=== PATIENT | male | born 1955 | race Caucasian/White ===

== ENCOUNTER → 2016-05-08 | Outpatient (CLI) | payer MEDICARE, MEDICAID ==
[~2016-05-08] VITALS: Ht 193 cm; Wt 79.4 kg
[~2016-05-08] MED LIST: BUPIVACAINE 0.5% 50 ML VIAL. IJ ONE; CONTRAST GIVEN MC PRN; CYCL10TA2 PO; DUTA1CPM PO; FLUT1DIS IH; GABA-585 PO; HYDR-2672 PO; HYDR-963 PO; IOHEXOL 300 MG/ML 10ML VIAL. IJ ONE; LIDOCAINE 1% / SOD BICARB 8.4% 20 ML VIAL. IJ ONE; SENN8.6T99 PO; TRAM50TA PO; TRAZ50TA15 PO; ZOLP10TA PO; methylPREDNISolone ACETATE 80 MG/ML VIAL. IM ONE
[2016-05-08 08:04] VITALS: BP 122/74
--- NOTE | 2016-05-08 15:44 | RAD ---
Fluoroscopically guided left hip joint injection, 05/08/2016: History: Left hip pain Under local anesthesia, aseptic conditions and fluoroscopic guidance an 18-gauge needle was passed into the left hip joint along the lateral margin of the neck of the femoral component of the patient's hip prosthesis. Reddish serosanguineous joint fluid was encountered. Approximately 8 cc of joint fluid was aspirated with a sample sent to the lab for appropriate studies. 80 mg of Depo-Medrol mixed with 4 cc of 0.5% Sensorcaine was then injected into the joint as requested. The needle was then removed and hemostasis obtained. 0.5 minutes of fluoroscopy time was utilized. One fluoroscopic spot image was recorded. The patient tolerated the procedure well and left the department in good condition.
== END | disposition home or self-care (01) ==
LOC: RAD 07:36
PROVIDERS: ATTEND Orthopaedic Surgery Sports Medicine
DX: M25.552 Pain in left hip (principal)
CPT/HCPCS: 20605; 36415; 77002; 85651; 86141; 87205; J1040; J3490; 87071; 87075

== ENCOUNTER 2016-08-12 00:42 | Emergency (ER) | payer MEDICARE, OTHER ==
[~2016-08-12] VITALS: Ht 193 cm; Wt 76.2 kg
[~2016-08-12 00:42] MED LIST changes: -BUPIVACAINE 0.5% 50 ML VIAL. IJ ONE; -CONTRAST GIVEN MC PRN; -IOHEXOL 300 MG/ML 10ML VIAL. IJ ONE; -LIDOCAINE 1% / SOD BICARB 8.4% 20 ML VIAL. IJ ONE; -methylPREDNISolone ACETATE 80 MG/ML VIAL. IM ONE
[2016-08-12 00:50] VITALS: BP 125/70
[2016-08-12] MEDS ORDERED: DIPHTH,PERTUSS(ACELL),TET TOX 0.5 ML DISP.SYRIN. VAX IM ONE (01:15)
[2016-08-12] MEDS ORDERED: LIDOCAINE 1%/EPI 1:100,000 20 ML VIAL. IJ ONE (01:15)
[2016-08-12] MEDS ORDERED: CLIN-44 PO (01:32)
--- NOTE | 2016-08-12 01:32 | PHYS DOC ---
Past Medical History Past Medical History: Prostatitis Past Surgical History: Hip Replacement, Other Additional Past Surgical Histo: carpal tunnel Alcohol Use: Occasionally Drug Use: None Adult General Chief Complaint Chief Complaint: ABSCESS HPI HPI Patient is a 61 year old male who presents with abscess to his back. The patient states for years he has had a bump over his thoracic spine, today very large, red, & painful. Denies drainage. Denies fevers/chills, vomiting. Last tetanus unknown. Review of Systems Review of Systems Constitutional: Denies fever or chills HENT: Denies nasal congestion or sore throat Respiratory: Denies cough or shortness of breath Cardiovascular: Denies chest pain GI: Denies abdominal pain, nausea, vomiting Musculoskeletal: Denies back pain or joint pain Integument: Reports abscess Neurologic: Denies headache Current Medications Current Medications Current Medications Medications (Trade) Dose Ordered Sig/Shirlene Start Time Stop Time Status Last Admin Dose Admin Acetaminophen/ Hydrocodone Bitart (Lortab 5/325) 2 tab 1X ONCE 08/12/16 01:45 08/12/16 01:46 DC 08/12/16 01:59 2 TAB Diphtheria/ Tetanus/Acell Pertussis (Boostrix) 0.5 ml ONCE ONCE 08/12/16 01:15 08/12/16 01:16 DC 08/12/16 02:00 0.5 ML Lidocaine/ Epinephrine (Xylocaine 1%-Epi 1:100,000) 20 ml 1X ONCE 08/12/16 01:15 08/12/16 01:16 DC 08/12/16 01:15 20 ML Allergies Allergies Allergies Coded Allergies Type Severity Reaction Last Updated Verified Sulfa (Sulfonamide Antibiotics) Allergy Intermediate rash 02/01/15 Yes Physical Exam Physical Exam Constitutional: Well developed, well nourished, no acute distress, non-toxic appearance. HENT: Normocephalic, atraumatic, bilateral external ears normal, oropharynx moist, nose normal. Eyes: conjunctiva normal, no discharge. Cardiovascular: no edema. Lungs & Thorax: no respiratory distress. Abdomen: nondistended. Skin: over mid thoracic spine there is a 6 x 5 cm area of erythema/warmth/ fluctuance & induration which is warm to touch & painful. Back: abscess as above. Extremities: No deformity Neurologic: Alert and oriented X 3 Current Patient Data Vital Signs Vital Signs Date Time Temp Pulse Resp B/P (MAP) Pulse Ox O2 Delivery O2 Flow Rate FiO2 08/12/16 00:50 98.0 89 16 98 Room Air 98.0 EKG EKG [] Radiology/Procedures Radiology/Procedures [] Course & Med Decision Making Course & Med Decision Making Pertinent Labs and Imaging studies reviewed. (See chart for details) The patient presents with abscess to upper back. Updated tetanus, I&D performed by me. Gave norco for pain. I think this is actually an infected sebaceous cyst. Recommend keep packing in place, gave prescription for clindamycin, return in 2 days for wound check. Referred to Dr. Hart as likely to need surgical treatment to prevent recurrence/reaccumulation. Come back for high fever, spreading warmth/erythema/swelling, any otherwise worsening condition. Discharged home in stable condition. [] Dragon Disclaimer Dragon Disclaimer This electronic medical record was generated, in whole or in part, using a voice recognition dictation system. Incision and Drainage Indication: abscess Procedure: The patient was positioned appropriately. Local anesthesia was achieved by injection of 1% lidocaine with epinephrine, 6 ml. An incision was then made over the apex of the lesion and a copious amount of thick white material was expressed. The drainage cavity was packed with sterile gauze. The patients tetanus status updated The patient tolerated the procedure well. Complications: none. Departure Departure Impression: Primary Impression: Abscess Additional Impression: Infected sebaceous cyst Disposition: 01 HOME, SELF-CARE Condition: STABLE Referrals: IBIS HART MD Patient Instructions: Abscess, [id number] Additional Instructions: You were seen in the emergency department today for abscess. It was drained here. This could be an infected sebaceous cyst. You eventually may need to see a surgeon as this could recollect & become infected again. Please keep packing in place until it falls out. Take prescribed antibiotic. Follow up here in 2 days for wound check. Come back sooner for high fever, spreading redness/swelling/warmth, any otherwise worsening condition. Scripts Clindamycin Hcl (CLINDAMYCIN HCL) 150 Mg Capsule 450 MG PO TID for 7 Days, #63 CAP Prov: GODWIN BERNABE MD 08/12/16 Problem Qualifiers GODWIN BERNABE MD August 12, 2016 01:32
[2016-08-12] MEDS ORDERED: HYDROcodone/APAP 5/325MG 1 TAB TABLET PO ONE (01:45)
== END 2016-08-12 02:03 | disposition home or self-care (01) ==
LOC: ER 00:42
DX: L02.212 Cutaneous abscess of back [any part, except buttock and flank] (principal); L72.3 Sebaceous cyst; Z88.2 Allergy status to sulfonamides
CPT/HCPCS: 10060; 90471; 90715; 99283; J3490

== ENCOUNTER 2016-08-14 15:04 | Emergency (ER) | payer MEDICARE, OTHER ==
[~2016-08-14] VITALS: Ht 195.6 cm; Wt 76.2 kg
[~2016-08-14 15:04] MED LIST changes: +CLIN-44 PO
[2016-08-14 15:21] VITALS: BP 117/73
[2016-08-14] MEDS ORDERED: HYDROcodone/APAP 5/325MG 1 TAB TABLET PO ONE (15:45)
[2016-08-14] MEDS ORDERED: HYDR-971 PO (15:54)
--- NOTE | 2016-08-14 15:54 | PHYS DOC ---
Past Medical History Past Medical History: Prostatitis Past Surgical History: Hip Replacement, Other Additional Past Surgical Histo: carpal tunnel Alcohol Use: Occasionally Drug Use: None Adult General Chief Complaint Chief Complaint: WOUND CHECK HPI HPI Patient is a 61 year old male who presents for wound check for an abscess that was drained 2 days ago. Review of Systems Review of Systems Constitutional: Denies fever or chills [] Eyes: Denies change in visual acuity, redness, or eye pain [] HENT: Denies nasal congestion or sore throat [] Musculoskeletal: Denies back pain or joint pain [] Integument: wound check for abscess Neurologic: Denies headache, focal weakness or sensory changes [] Endocrine: Denies polyuria or polydipsia [] Current Medications Current Medications Current Medications Medications (Trade) Dose Ordered Sig/Shirlene Start Time Stop Time Status Last Admin Dose Admin Acetaminophen/ Hydrocodone Bitart (Lortab 5/325) 2 tab 1X ONCE 08/14/16 15:45 08/14/16 15:46 DC 08/14/16 15:47 2 TAB Allergies Allergies Allergies Coded Allergies Type Severity Reaction Last Updated Verified Sulfa (Sulfonamide Antibiotics) Allergy Intermediate rash 02/01/15 Yes Physical Exam Physical Exam Constitutional: Well developed, well nourished, no acute distress, non-toxic appearance. [] HENT: Normocephalic, atraumatic, bilateral external ears normal, oropharynx moist, no oral exudates, nose normal. [] Eyes: PERRLA, EOMI, conjunctiva normal, no discharge. [] Skin: Upper back with an open wound approximately 2 cm long. I did squeeze some fat from the area. There is trace cellulitis to the area. There is no warmth or tenderness to the area. Back: No tenderness, no CVA tenderness. [] Extremities: No tenderness, no cyanosis, no clubbing, ROM intact, no edema. [] Neurologic: Alert and oriented X 3, normal motor function, normal sensory function, no focal deficits noted. [] Psychologic: Affect normal, judgement normal, mood normal. [] Current Patient Data Vital Signs Vital Signs Date Time Temp Pulse Resp B/P (MAP) Pulse Ox O2 Delivery O2 Flow Rate FiO2 08/14/16 15:47 20 Room Air 08/14/16 15:21 98.5 101 96 98.5 EKG EKG [] Radiology/Procedures Radiology/Procedures [] Course & Med Decision Making Course & Med Decision Making Pertinent Labs and Imaging studies reviewed. (See chart for details) Patient has an abscess that was drained 2 days ago. Presents today for wound check. Area appears to be healing very well. He is on antibiotics. This no packing when he came to the ED. Mild amount of fat was squeezed from the wound. The area was covered. Patient went home with instructions to follow-up with his own doctor in the next 7 days. Dragon Disclaimer Dragon Disclaimer This electronic medical record was generated, in whole or in part, using a voice recognition dictation system. Departure Departure Impression: Primary Impression: Wound check, abscess Disposition: HOME, SELF-CARE Condition: STABLE Referrals: MANI ZENG (PCP) follow up with your doctor in one week Patient Instructions: Abscess, Care After Additional Instructions: You were seen for an abscess on your back but is open and is draining. Keep the area clean and dry. Continue taking antibiotics until completed. Follow-up with your doctor in 7 days. Come back to the ED if symptoms worsen especially if you have a fever. Scripts Hydrocodone/Apap 5-325 (NORCO 5-325 TABLET) 1 Each Tablet 1 TAB PO Q4-6HRS, #20 TAB Prov: NIRMAL VELASQUEZ APRN 08/14/16 NIRMAL VELASQUEZ APRN August 14, 2016 15:54
== END 2016-08-14 16:00 | disposition home or self-care (01) ==
LOC: ER 15:04
DX: Z48.01 Encounter for change or removal of surgical wound dressing (principal); L02.212 Cutaneous abscess of back [any part, except buttock and flank]; Z88.2 Allergy status to sulfonamides
CPT/HCPCS: 99283

== ENCOUNTER 2016-10-24 13:09 | Emergency (ER) | payer BC ==
[~2016-10-24] VITALS: Ht 195.6 cm; Wt 74.8 kg
[~2016-10-24 13:09] MED LIST changes: -AMOX500C PO; -CIPR7.5D RIGHT EAR
[2016-10-24 14:04] VITALS: BP 114/65
[2016-10-24] MEDS ORDERED: CIPR7.5D RIGHT EAR (14:32)
[2016-10-24] MEDS ORDERED: AMOX500C PO (14:32)
--- NOTE | 2016-10-24 14:32 | PHYS DOC ---
Past Medical History Past Medical History: No Pertinent History Past Surgical History: Other Additional Past Surgical Histo: HIP REPLACEMENT Additional Information: TRYING TO QUIT WITH CHANTIX; 1 PPD Alcohol Use: Occasionally Drug Use: None Adult General Chief Complaint Chief Complaint: EARACHE/EAR PAIN [facility] HPI Patient is a 61 year old male presents to the emergency department stating that he is having pain and discomfort and decreased hearing in his right ear. He states that this started last night when he was at home. He states his the day has progressed he has had decreased hearing. He denies any fever, chills or any nausea vomiting. He does state that he feels that his balance is off. He denies any falls trauma. He states that the pain in his ear feels like somebody is sticking something and it. Review of Systems Review of Systems Constitutional: Denies fever or chills [] Eyes: Denies change in visual acuity, redness, or eye pain [] HENT: Denies nasal congestion or sore throat. Complaint of right ear pain Respiratory: Denies cough or shortness of breath [] Cardiovascular: No additional information not addressed in HPI [] GI: Denies abdominal pain, nausea, vomiting, bloody stools or diarrhea [] : Denies dysuria or hematuria [] Musculoskeletal: Denies back pain or joint pain [] Integument: Denies rash or skin lesions [] Neurologic: Denies headache, focal weakness or sensory changes [] Endocrine: Denies polyuria or polydipsia [] Allergies Allergies Allergies Coded Allergies Type Severity Reaction Last Updated Verified Sulfa (Sulfonamide Antibiotics) Allergy Intermediate rash 02/01/15 Yes Physical Exam Physical Exam Constitutional: Well developed, well nourished, no acute distress, non-toxic appearance. [] HENT: Normocephalic, atraumatic, bilateral external ears normal, oropharynx moist, no oral exudates, nose normal. Left tympanic membrane appeared to be normal. Right tympanic membrane appears to be very cloudy and white. Ear canal appears to be red as well. No drainage or discharge noted from the sites. Eyes: PERRLA, EOMI, conjunctiva normal, no discharge. [] Neck: Normal range of motion, no tenderness, supple, no stridor. [] Cardiovascular:Heart rate regular rhythm, no murmur [] Lungs & Thorax: Bilateral breath sounds clear to auscultation [] Skin: Warm, dry, no erythema, no rash. [] Back: No tenderness Extremities: No tenderness, no cyanosis, no clubbing, ROM intact, no edema. [] Neurologic: Alert and oriented X 3, normal motor function, normal sensory function, no focal deficits noted. [] Psychologic: Affect normal, judgement normal, mood normal. [] Current Patient Data Vital Signs Vital Signs Date Time Temp Pulse Resp B/P (MAP) Pulse Ox O2 Delivery O2 Flow Rate FiO2 10/24/16 14:04 98.5 89 18 98 Room Air 98.5 EKG EKG [] Radiology/Procedures Radiology/Procedures [] Course & Med Decision Making Course & Med Decision Making Pertinent Labs and Imaging studies reviewed. (See chart for details) Patient will be provided with amoxicillin and Cipro eardrops. He'll be discharged home in stable condition with recommendations to follow-up with his primary care physician in the next 3-5 days. Patient will also be encouraged to take Tylenol or ibuprofen for pain and discomfort. Patient agrees with discharge instructions treatment regimens and follow-up recommendations. Signs and symptoms to return back to emergency parents been provided. [] Dragon Disclaimer Dragon Disclaimer This electronic medical record was generated, in whole or in part, using a voice recognition dictation system. Departure Departure Impression: Primary Impression: Right otitis media Additional Impression: Right otitis externa Disposition: 01 HOME, SELF-CARE Condition: STABLE Referrals: MANI ZENG (PCP) Patient Instructions: Otitis Externa, [id number], Otitis Media, Adult, Easy- to-Read Additional Instructions: Medication as prescribed. Tylenol or ibuprofen for fever chills or generalized aches and discomfort. Follow-up with her primary care physician next 3-5 days. Return back to emergency prior signs and symptoms of become worse. Scripts Ciprofloxacin Hcl/Dexameth (CIPRODEX OTIC SUSPENSION) 7.5 Ml Drops.susp 4 DROP RIGHT EAR BID, #7.5 ML Prov: TOÑO LUNDBERG APRN 10/24/16 Amoxicillin (AMOXICILLIN) 500 Mg Capsule 1 CAP PO BID, #20 CAP Prov: TOÑO LUNDBERG APRN 10/24/16 Problem Qualifiers TOÑO LUNDBERG APRN Oct 24, 2016 14:32
== END 2016-10-24 14:38 | disposition home or self-care (01) ==
LOC: ER 13:09
DX: H66.91 Otitis media, unspecified, right ear (principal); H60.91 Unspecified otitis externa, right ear; Z88.2 Allergy status to sulfonamides; F17.200 Nicotine dependence, unspecified, uncomplicated
CPT/HCPCS: 99283

== ENCOUNTER → 2016-10-24 | Outpatient (CLI) | payer BC ==
[~2016-10-24] MED LIST changes: +AMOX500C PO; +CIPR7.5D RIGHT EAR; -CLIN-44 PO; +CLIN150C14 PO; -HYDR-2672 PO; +HYDR-2766 PO; +HYDR-971 PO
--- NOTE | 2016-10-24 12:47 | KCIC ---
Indication: Mesothelioma for 15 years. Cough and short of air, increasing Technique: Axial images and coronal and sagittal reformatted images are provided. No comparison study is available at this institution. Recommend comparison to any prior should they become available. One or more of the following individualized dose reduction techniques were utilized for this examination: 1. Automated exposure control 2. Adjustment of the mA and/or kV according to patient size 3. Use of iterative reconstruction technique Findings: There is [id number] emphysema. There is left apical pleural opacity as well as minimal nodular pleural opacity in the right upper hemithorax. There is no pleural calcification. There is no pleural effusion. There is no diffuse pleural thickening. There is no consolidation or worrisome pulmonary nodule. There is presumed atelectasis in the right lung base. There is also blunting of the left costophrenic sulcus with mild nodularity of the pleura in the right costophrenic sulcus, could be postsurgical, correlate with previous procedures. Central airways are patent. There is atheromatous disease in the thoracic aorta. Subcentimeter mediastinal lymph nodes are nonspecific. Heart is not enlarged. Coronary artery calcifications are minimal. There is no definite hilar or mediastinal adenopathy. There is mild left adrenal fullness. There is a probable cyst in the left kidney, exophytic, 18 mm. There are degenerative changes in the spine. IMPRESSION: 1. Dzfw-ph-slfmnhpl emphysema. 2. Left apical pleural nodularity could represent scarring although comparison to prior studies would be recommended given history of mesothelioma. 3. Right upper hemithorax pleural nodularity or thickening, nonspecific. Again, comparison to any prior is or short-term follow-up would be recommended given provided history of mesothelioma. 4. Nodularity of the pleura in the right lower lobe, some of this may be related to atelectasis or scarring and some of this may be postsurgical. Again, comparison to priors would be beneficial. Continued follow-up would be of benefit. Electronically signed by: Bryant Babb MD (10/24/2016 12:44 PM) [facility]
== END | disposition home or self-care (01) ==
LOC: KCIC CT 11:38
DX: C45.9 Mesothelioma, unspecified (principal); J43.9 Emphysema, unspecified
CPT/HCPCS: 71250

== ENCOUNTER → 2016-12-18 | Outpatient (CLI) | payer BC, OTHER ==
[~2016-12-18] MED LIST changes: +AMOX500C PO; +CIPR7.5D RIGHT EAR; +VARE0.5T PO
--- NOTE | 2016-12-18 10:11 | EKG ---
[facility] [address] [place] [address] Test Date: 2016-12-18 Test Time: 10:16:35 Pat Name: JACQUELINE POE Department: Room: Gender: M Exchange Clerk: : 1955 Requested By: GARRETT DYE Order Number: [id number] Reading MD: Ede Castillo Measurements Intervals [place] Rate: 70 P: 70 PA: 124 QRS: 69 QRSD: 98 T: 54 QT: 380 QTc: 413 Interpretive Statements SINUS RHYTHM NONSPECIFIC ST-T WAVE CHANGES. RI6.01 No previous ECG available for comparison Electronically Signed On 12-20-2016 17:54:43 CDT by Ede Castillo
[2016-12-18 10:38] LABS: BASO % 1 % (0-3); EOS % 2 % (0-3); HEMATOCRIT 47.3 % (39.0-53.0); HEMOGLOBIN 16.1 g/dL (13.0-17.5); LYMPH # 1.1 x10^3/uL (1.0-4.8); LYMPH % 32 % (24-48); MEAN CORPUSCULAR HEMOGLOBIN 39 pg (25-35); MEAN CORPUSCULAR HGB CONC 34 g/dL (31-37); MEAN CORPUSCULAR VOLUME 114 fL (79-100); MONO % 17 % (0-9); NEUT % 48 % (31-73); PLATELET COUNT 168 x10^3/uL (140-400); RED BLOOD COUNT 4.14 x10^6/uL (4.30-5.70); RED CELL DISTRIBUTION WIDTH 15.2 % (11.5-14.5); WHITE BLOOD COUNT 3.4 x10^3/uL (4.0-11.0)
[2016-12-18 10:42] LABS: ALBUMIN 3.1 g/dL (3.4-5.0); CALCIUM 8.7 mg/dL (8.5-10.1); CREATININE 0.7 mg/dL (0.7-1.3); GFR 113.9; POTASSIUM 3.9 mmol/L (3.5-5.1)
[2016-12-18 10:44] LABS: PROTHROMBIN TIME PATIENT 12.1 SEC (11.7-14.0)
[2016-12-18 10:55] LABS: BILIRUBIN,URINE NEGATIVE (NEG); GLUCOSE,URINE 100 mg/dL (NEG); NITRITE,URINE NEGATIVE (NEG); PROTEIN,URINE NEGATIVE (NEG-TRACE); UROBILINOGEN,URINE 0.2 mg/dL (0.2 mg/dL)
[2016-12-18 11:04] LABS: BACTERIA,URINE 0 /HPF (0-FEW); RBC,URINE OCC /HPF (0-2); SQUAMOUS EPITHELIAL CELL,UR FEW /LPF; WBC,URINE RARE /HPF (0-4)
[2016-12-18 11:58] LABS: PLT ESTIMATE ADEQUATE (ADEQUATE)
== END | disposition home or self-care (01) ==
LOC: SURGPAT 09:15
PROVIDERS: ATTEND Orthopaedic Surgery Sports Medicine
DX: Z01.818 Encounter for other preprocedural examination (principal)
CPT/HCPCS: 36415; 80048; 81001; 82040; 85025; 85610; 85651; 85730; 87641; 93005

== ENCOUNTER 2017-01-01 05:39 | Inpatient (IN) | payer OTHER ==
[~2017-01-01] VITALS: Ht 190.5 cm; Wt 75.7 kg
[2017-01-01] VITALS (9 sets, daily range): BP systolic 70–125; BP diastolic 37–76
[2017-01-01] MEDS ORDERED: MELOXICAM 7.5 MG TABLET PO PRN (06:00)
[2017-01-01] MEDS ORDERED: MORPHINE SULFATE 5 MG, KETOROLAC 30 MG, ROPIVacaine 0.5% PF 60 ML, EPINEPHrine 0.5 MG i... INT ART ONE ×5 (06:00)
[2017-01-01] MEDS ORDERED: TRANEXAMIC ACID 1,000 MG in IV NS 50ML -- 1ST BAG INJ ONE (06:00)
[2017-01-01] MEDS ORDERED: HYDROcodone/APAP 7.5/325MG 1 TAB TABLET PO PRN ×2 (06:00→09:30)
[2017-01-01] MEDS ORDERED: IV RINGERS,LACTATED 1000ML 1,000 ML IV SCH ×2 (06:15→09:47)
[2017-01-01] MEDS ORDERED: LIDOCAINE 1% PF 2 ML VIAL. ID PRN ×2 (06:15→10:00)
[2017-01-01] MEDS ORDERED: MIDAZOLAM HCL/PF 2 MG/2 ML VIAL. IV PRN (06:15)
[2017-01-01] MEDS ORDERED: fentaNYL PF VIAL 100 MCG/2 ML VIAL IV PRN ×5 (06:30→10:00)
[2017-01-01 07:04] LABS: INR 0.9 (0.8-1.1); PROTHROMBIN TIME PATIENT 11.9 SEC (11.7-14.0)
[2017-01-01] MEDS ORDERED: PROPOFOL 20 ML IV ONE (07:07)
[2017-01-01] MEDS ORDERED: LIDOCAINE 2% PF Vial for OR 5 ML VIAL. ONE (07:07)
[2017-01-01] MEDS ORDERED: fentaNYL PF VIAL 100 MCG/2 ML VIAL ONE (07:07)
[2017-01-01] MEDS ORDERED: SUCCINYLCHOLINE 200 MG/10 ML VIAL. ONE (07:26)
[2017-01-01] MEDS ORDERED: DESFLURANE 61 TO 120 MINUTES IH ONE (07:37)
[2017-01-01] MEDS ORDERED: DEXAMETHASONE SOD PHOS 20 MG/5 ML VIAL. ONE (07:37)
[2017-01-01] MEDS ORDERED: PHENYLEPHRINE in 0.9% NACL PF 1 MG/10 ML DISP.SYRIN. IV ONE (07:39)
[2017-01-01] MEDS ORDERED: TRANEXAMIC ACID 1,000 MG in IV NS 50ML -- 2ND BAG INJ ONE (08:00)
[2017-01-01] MEDS ORDERED: ONDANSETRON PF 4 MG/2 ML VIAL. ONE (08:11)
[2017-01-01] MEDS ORDERED: ROCURONIUM 100 MG/10 ML VIAL. ONE (08:15)
[2017-01-01] MEDS ORDERED: NEOSTIGMINE 10 MG/10 ML VIAL. ONE (08:17)
[2017-01-01] MEDS ORDERED: GLYCOPYRROLATE 1 MG/5 ML VIAL. ONE (08:17)
[2017-01-01] MEDS ORDERED: MORPHINE SULFATE 10 MG/ML VIAL. IV PRN (09:30)
[2017-01-01] MEDS ORDERED: DEXTROSE 50% 25 GM / 50ML DISP.SYRIN. IV PRN (09:30)
[2017-01-01] MEDS ORDERED: traMADol 50 MG TABLET PO PRN ×2 (09:30)
[2017-01-01] MEDS ORDERED: ACETAMINOPHEN 325 MG TABLET. PO PRN (09:30)
[2017-01-01] MEDS ORDERED: diphenhydrAMINE 50 MG/ML VIAL IV PRN (09:30)
[2017-01-01] MEDS ORDERED: HYDROcodone/APAP 10/325 1 TAB TABLET PO PRN (09:30)
[2017-01-01] MEDS ORDERED: CALCIUM CARBONATE 500 MG TAB.CHEW PO PRN (09:30)
[2017-01-01] MEDS ORDERED: PROCHLORPERAZINE 10 MG/2 ML VIAL. IV PRN (09:30)
[2017-01-01] MEDS ORDERED: MORPHINE SULFATE 4 MG/ML DISP.SYRIN. IV PRN ×2 (09:30)
[2017-01-01] MEDS ORDERED: METOCLOPRAMIDE HCL 10 MG/2 ML VIAL. IV PRN (09:30)
[2017-01-01] MEDS ORDERED: ZOLPIDEM 5 MG TABLET. PO PRN (09:30)
[2017-01-01] MEDS ORDERED: PROCHLORPERAZINE 5 MG TABLET. PO PRN (09:30)
[2017-01-01] MEDS ORDERED: 0.9 % SODIUM CHLORIDE 10 ML DISP.SYRIN. IV PRN (09:30)
[2017-01-01] MEDS ORDERED: MORPHINE SULFATE 2 MG/ML DISP.SYRIN. IV PRN ×2 (09:30→10:00)
[2017-01-01] MEDS ORDERED: oxyCODONE/APAP 5/325 1 TAB TABLET PO PRN (09:30)
--- NOTE | 2017-01-01 09:35 | PDOC ---
BRIEF OPERATIVE NOTE Date: Jan 01, 2017 Pre-Op Diagnosis L DAVID metal allergy Post-Op Diagnosis same Procedure Performed Head and liner , L DAVID Surgeon Ysabel Inman Anesthesia Type: General, Local Blood Loss 50mL Specimens Obtained cx, tissue for cx Complications none GARRETT DYE II, MD Jan 01, 2017 09:35
[2017-01-01] MEDS: fentaNYL PF VIAL 100 MCG/2 ML VIAL IV PRN ×2 (09:43→09:52)
[2017-01-01] MEDS ORDERED: ONDANSETRON PF 4 MG/2 ML VIAL. IV PRN (10:00)
[2017-01-01] MEDS: HYDROmorphone 2 MG/ML VIAL IV PRN ×2 (10:03→10:26)
--- NOTE | 2017-01-01 10:08 | RAD ---
Indication postop. Left hip replacement. A single view of pelvis was obtained. There are bilateral total hip prostheses. Postoperative changes are noted associated with the soft tissues about the left hip. No unexpected finding is seen. IMPRESSION: Postop total left hip prosthesis. No complication or unexpected finding is seen
--- NOTE | 2017-01-01 10:53 | OP ---
DATE OF SURGERY: 01/01/2017 SURGEON: Charly Dye MD GLASS FURNACE TENDER: Trevor Inman. ANESTHESIA: General. 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 POSTOPERATIVE DIAGNOSIS: Left total hip arthroplasty metal allergy. PROCEDURE PERFORMED: Head and liner exchange from left total hip arthroplasty. COMPONENTS INSERTED: 1. DePuy [place] AltrX polyethylene acetabular liner +4, 10 degree, 36 mm inner diameter, 64 outer diameter. 2. DePuy Biolox delta ceramic femoral head +1.5, 36 mm diameter, 12/14 taper. ESTIMATED BLOOD LOSS: 50 mL. COMPLICATIONS: None. REASON FOR PROCEDURE: The patient is a very pleasant 61-year-old who has had 2 prior hip surgeries, had a primary and then revision for pain and swelling. He presented to my clinic initially for complaints of his right hip pain, which was successfully treated by a hip replacement. Because he been doing so well on his right side, he asked me to look at his left side. I had put him through quite a bit workup including infectious workup x2, hip aspiration as well as metal allergy testing over the past year or so. After reviewing all this evidence, we had discussion of the risks, benefits, alternatives to the above surgery and he elected to proceed. DESCRIPTION OF PROCEDURE: The patient was greeted in the preoperative area by myself. The correct extremity was marked and verified. He was taken to the operative suite and antibiotics were started en route. Once in the OR, he was transferred gently supine to the OR table and underwent successful induction with general anesthetic. We then secured him to the bed and laid him in the lateral decubitus position with all down pressure points padded including an axillary roll. We then proceeded prep and drape of the left lower extremity in our usual sterile fashion including an Ioban sandwich. After this, I made a posterolateral skin incision through his prior one and dissected subcutaneous tissue with electrocautery. There was abundant fibrotic tissue. I continued my dissection down with this hip and abduction under a padded Carbajal with the knee. I identified his fascia and incised this in line with his skin incision. He had a pocket of fibrous tissue with some maroon-colored fluid. We took samples and sent this off for culture. This did wrap around just lateral to his greater trochanter and proceeded down into the hip joint itself. I was able to visualize the hip joint at this point through this large pocket of fluid. I then continued on with my dissection and bluntly split his gluteus nitza through its prior split. I then placed my Charnley retractor and began excising the scar tissue until I was able to more fully visualize these components. I used a Avilla and osteotome and tried impacted at the interface of the acetabular shell and bone, but was unable to and felt that it was solid. There was no motion and I was not able to get an osteotome down anywhere around the femoral component and femur as well. After I was satisfied that his components were stable, I then continued excising the scar tissue from his dislocated hip. I had already disimpacted the head and the taper sleeve. He did have a lot of great wear at the sleeve and head portion. The neck and trunnion looked okay. After exercising more scar tissue and mobilizing his hip, I used a small curved osteotome to remove his acetabular liner. No abnormal wear at this. His cup was stable. I irrigated out the operative field. I then placed the above cup and impacted in position. I then trialled head sizes and selected the bone size, which gave catholic of his leg length and excellent stability. I did not feel any impingement with range of motion. I then redislocated the hip and I removed the trial head and irrigated out the operative field again. I washed and dried the Faith taper region and impacted the ceramic femoral head into place and reduced the hip again. I was happy with the stability and leg length. I grabbed some fibrotic tissue to try to recreate a posterior soft tissue envelope and reapproximated this with simple interrupted #2 Ethibond. After this, I irrigated out the operative field again and injected my periarticular mixture into the amos-incisional area. I then closed the fascia with a running #2 Quill. Inverted interrupted 2-0 was used for subcutaneous tissue and running 4-0 Monocryl in subcuticular fashion was used for skin. The hip area was then cleansed and dried and sterile dressing was applied. The patient was awakened from anesthesia and laid gently supine. He was transferred gently supine to the hospital bed and taken to PACU in stable and extubated condition. Postoperative plan is to admit him to the joint center for antibiotic and DVT prophylaxis. He will receive IV pain medicine and begin his rehab as well. He tolerated the surgery well. No complications. Prior to completion of wound closure, all counts reported correct x2. CHARLY DYE MD DR: WILD/philly JOB#: [id number] / [id number]
[2017-01-01] MEDS: IV DEXTROSE 5 %-0.45 % NACL 1,000 ML IV SCH ×2 (13:03→22:00)
[2017-01-01] MEDS: oxyCODONE/APAP 7.5/325 1 TAB TABLET PO PRN ×3 (13:10→21:16)
[2017-01-01] MEDS ORDERED: WARFARIN 7.5 MG TABLET. PO ONE (16:00)
[2017-01-01] MEDS: FERROUS SULFATE 325 MG TABLET. PO SCH (16:48)
[2017-01-01] MEDS: CELECOXIB 200 MG CAPSULE. PO SCH (21:10)
[2017-01-02] MEDS: oxyCODONE/APAP 7.5/325 1 TAB TABLET PO PRN ×5 (01:37→20:39)
[2017-01-02 02:31] VITALS: BP 100/64
[2017-01-02 04:49] LABS: HEMATOCRIT 37.5 % (39.0-53.0); RED BLOOD COUNT 3.32 x10^6/uL (4.30-5.70); RED CELL DISTRIBUTION WIDTH 14.7 % (11.5-14.5); WHITE BLOOD COUNT 9.1 x10^3/uL (4.0-11.0)
[2017-01-02 05:10] LABS: INR 1.2 (0.8-1.1); PROTHROMBIN TIME PATIENT 14.7 SEC (11.7-14.0)
[2017-01-02] MEDS ORDERED: MAGNESIUM HYDROXIDE 2,400 MG/30 ML ORAL.SUSP. PO PRN (06:00)
[2017-01-02 06:44] VITALS: BP 114/64
[2017-01-02] MEDS: FERROUS SULFATE 325 MG TABLET. PO SCH ×2 (08:10→16:54)
[2017-01-02] MEDS: CELECOXIB 200 MG CAPSULE. PO SCH ×2 (08:10→20:38)
[2017-01-02] MEDS: MULTIVITAMIN with MINERAL TABLET. PO SCH (08:11)
[2017-01-02] MEDS: SENNOSIDES/DOCUSATE 8.6/50MG TABLET. PO SCH (08:11)
--- NOTE | 2017-01-02 08:15 | DISCH ---
DISCHARGE INSTRUCTIONS Condition on Discharge Condition on Discharge: Stable Activity After Discharge Activity Instructions for Disc: Activity as tolerated Other activity instructions: hip precautions Bathing Instructions: Shower-keep dressing dry Weight Bearing Status after Di: As tolerated Diet after Discharge Diet after Discharge: Regular Wound Incision Care Wound/Incision Care: Ice to area for comfort, Do not change dressing Follow-Up Follow up with: Ysabel in 2wks Warfarin Follow-Up Warfarin Follow UP: per Pharmacy GARRETT DYE II, MD Jan 02, 2017 08:15
--- NOTE | 2017-01-02 08:18 | PDOC ---
ORTHO PROGRESS NOTES Subjective Little pain at rest at L hip. No CP, SOB, other complaints Vitals Vital Signs Date Time Temp Pulse Resp B/P (MAP) Pulse Ox O2 Delivery O2 Flow Rate FiO2 01/02/17 08:11 Room Air 01/02/17 06:44 97.4 68 16 114/64 (81) 94 97.4 01/02/17 02:31 Labs Laboratory Tests Test 01/01/17 06:35 01/02/17 04:15 Prothrombin Time 11.9 SEC (11.7-14.0) 14.7 SEC (11.7-14.0) Prothromb Time International Ratio 0.9 (0.8-1.1) 1.2 (0.8-1.1) Activated Partial Thromboplast Time 25 SEC (24-38) White Blood Count 9.1 x10^3/uL (4.0-11.0) Red Blood Count 3.32 x10^6/uL (4.30-5.70) Hemoglobin 13.0 g/dL (13.0-17.5) Hematocrit 37.5 % (39.0-53.0) Mean Corpuscular Volume 113 fL (79-100) Mean Corpuscular Hemoglobin 39 pg (25-35) Mean Corpuscular Hemoglobin Concent 35 g/dL (31-37) Red Cell Distribution Width 14.7 % (11.5-14.5) Platelet Count 137 x10^3/uL (140-400) Laboratory Tests Test 01/02/17 04:15 White Blood Count 9.1 x10^3/uL (4.0-11.0) Red Blood Count 3.32 x10^6/uL (4.30-5.70) Hemoglobin 13.0 g/dL (13.0-17.5) Hematocrit 37.5 % (39.0-53.0) Mean Corpuscular Volume 113 fL (79-100) Mean Corpuscular Hemoglobin 39 pg (25-35) Mean Corpuscular Hemoglobin Concent 35 g/dL (31-37) Red Cell Distribution Width 14.7 % (11.5-14.5) Platelet Count 137 x10^3/uL (140-400) Prothrombin Time 14.7 SEC (11.7-14.0) Prothromb Time International Ratio 1.2 (0.8-1.1) Notes A and A in bed incision ok wiggles toes, SITLT, toes warm Assessment and Plan Doing well, PT/OT home tomorrow, outpatient PT GARRETT DYE II, MD Jan 02, 2017 08:18
[2017-01-02] MEDS: VARENICLINE 0.5 MG TABLET. PO SCH ×2 (09:00→20:41)
[2017-01-02] MEDS ORDERED: BUDESONIDE 0.5 MG/2 ML NEBU. NEB SCH (09:00)
[2017-01-02] MEDS ORDERED: ALBUTEROL SULFATE 2.5 MG/3 ML NEBU. NEB SCH (09:00)
[2017-01-02] MEDS ORDERED: NON FORMULARY ITEM (Fluticasone/Salmeterol (Advair 100-50 Diskus) 1 PUFF) IH SCH (09:00)
[2017-01-02] MEDS: ADVAIR INH SCH ×2 (12:46→20:39)
[2017-01-02] MEDS ORDERED: BISACODYL 10 MG SUPP.RECT. PR PRN (16:00)
[2017-01-02] MEDS ORDERED: WARFARIN 5 MG TABLET. PO ONE (16:00)
[2017-01-02] MEDS ORDERED: FLU VACC QS2017-18 (36MOS+)/PF 0.5 ML SYRINGE. VAX IM ONE (17:00)
[2017-01-02 19:00] VITALS: BP 102/56
[2017-01-02] MEDS: CHANTIX 1 MG PO SCH (20:39)
[2017-01-03 05:00] VITALS: BP 111/58
[2017-01-03 05:12] LABS: HEMATOCRIT 40.2 % (39.0-53.0); HEMOGLOBIN 13.7 g/dL (13.0-17.5)
[2017-01-03] MEDS: oxyCODONE/APAP 7.5/325 1 TAB TABLET PO PRN ×2 (05:18→12:11)
[2017-01-03 05:35] LABS: INR 2.1 (0.8-1.1); PROTHROMBIN TIME PATIENT 22.2 SEC (11.7-14.0)
[2017-01-03] MEDS: VARENICLINE 0.5 MG TABLET. PO SCH (06:45)
[2017-01-03] MEDS: FERROUS SULFATE 325 MG TABLET. PO SCH ×2 (08:06→17:06)
[2017-01-03] MEDS: SENNOSIDES/DOCUSATE 8.6/50MG TABLET. PO SCH (08:06)
[2017-01-03] MEDS: MULTIVITAMIN with MINERAL TABLET. PO SCH (08:07)
[2017-01-03] MEDS: ADVAIR INH SCH (08:07)
[2017-01-03] MEDS: CELECOXIB 200 MG CAPSULE. PO SCH (08:07)
[2017-01-03] MEDS: CHANTIX 1 MG PO SCH (08:07)
--- NOTE | 2017-01-03 09:57 | PDOC ---
ORTHO PROGRESS NOTES Subjective Little pain, feels like he is doing well. He feels more stable on crutches. Vitals Vital Signs Date Time Temp Pulse Resp B/P (MAP) Pulse Ox O2 Delivery O2 Flow Rate FiO2 01/03/17 07:50 Room Air 01/03/17 05:18 20 01/03/17 05:00 98.0 64 111/58 (75) 96 98.0 Labs Laboratory Tests Test 01/02/17 04:15 01/03/17 04:50 White Blood Count 9.1 x10^3/uL (4.0-11.0) Red Blood Count 3.32 x10^6/uL (4.30-5.70) Hemoglobin 13.0 g/dL (13.0-17.5) 13.7 g/dL (13.0-17.5) Hematocrit 37.5 % (39.0-53.0) 40.2 % (39.0-53.0) Mean Corpuscular Volume 113 fL (79-100) Mean Corpuscular Hemoglobin 39 pg (25-35) Mean Corpuscular Hemoglobin Concent 35 g/dL (31-37) 34 g/dL (31-37) Red Cell Distribution Width 14.7 % (11.5-14.5) Platelet Count 137 x10^3/uL (140-400) Prothrombin Time 14.7 SEC (11.7-14.0) 22.2 SEC (11.7-14.0) Prothromb Time International Ratio 1.2 (0.8-1.1) 2.1 (0.8-1.1) Laboratory Tests Test 01/03/17 04:50 Hemoglobin 13.7 g/dL (13.0-17.5) Hematocrit 40.2 % (39.0-53.0) Mean Corpuscular Hemoglobin Concent 34 g/dL (31-37) Prothrombin Time 22.2 SEC (11.7-14.0) Prothromb Time International Ratio 2.1 (0.8-1.1) Notes NGTD on Cx A and A in chair incision ok remains NVI Assessment and Plan home today crutches coumadin per Pharm GARRETT DYE II, MD Jan 03, 2017 09:57
[2017-01-03] MEDS ORDERED: OXYC-327 PO (11:51)
[2017-01-03] MEDS ORDERED: ZOLP6.252 PO (11:52)
[2017-01-03] MEDS ORDERED: WARF3TAB54 PO (11:53)
[2017-01-03] MEDS ORDERED: WARFARIN 3 MG TABLET. PO ONE (14:00)
[2017-01-03 16:50] VITALS: BP 116/65
--- NOTE | 2017-01-04 08:51 | PDOC3 ---
Discharge Summary Visit Information Date of Admission: Jan 01, 2017 Date of Discharge: Jan 03, 2017 Admitting Diagnosis: Left hip pain after DAVID Brief Hospital Course Allergies Allergies Coded Allergies Type Severity Reaction Last Updated Verified Sulfa (Sulfonamide Antibiotics) Allergy Intermediate rash 01/01/17 Yes Uncoded Allergies Type Severity Reaction Last Updated Verified METAL Allergy Unknown 12/18/16 Vital Signs Vital Signs Date Time Temp Pulse Resp B/P (MAP) Pulse Ox O2 Delivery O2 Flow Rate FiO2 01/03/17 16:50 97.9 80 18 116/65 (82) 96 Room Air 97.9 Lab Results Laboratory Tests Test 01/03/17 04:50 Hemoglobin 13.7 g/dL (13.0-17.5) Hematocrit 40.2 % (39.0-53.0) Mean Corpuscular Hemoglobin Concent 34 g/dL (31-37) Prothrombin Time 22.2 SEC (11.7-14.0) Prothromb Time International Ratio 2.1 (0.8-1.1) Brief Hospital Course Mr. Bustillo is a 61 old male who presented to my outpatient orthopedic surgery clinic with complaints of left hip pain and swelling, he had undergone two prior THAs. Infectious workup was negative and it was felt he may have metal sensitivity. We had a discussion of the risks, benefits, alternatives to total knee arthroplasty and he elected to proceed. He tolerated surgery well cover well from anesthesia in the PACU. He was then taken to the joint Center for care and observation. He did receive PT, OT, DVT and antibiotic prophylaxis. He recovered well from surgery and remained hemodynamically stable and afebrile throughout the hospitalization. Pain was controlled on oral pain medicine at the time of discharge. Good progress was made with therapy throughout the hospitalization, and activities of daily living were accomplished by the patient. The incision was clean dry and intact and the operative extremity had normal motor and sensation. Discharge Information Condition at Discharge: Stable Follow Up: Weeks Disposition/Orders: D/C to Home Scheduled Fluticasone/Salmeterol (Advair 100-50 Diskus), 1 PUFF IH BID, (Reported) Varenicline Tartrate (Chantix), 0.5 MG PO DIRECTED, (Reported) Warfarin Sodium (Coumadin), 1 TAB PO DAILY, (Reported) Zolpidem Tartrate (Ambien Cr), 1 TAB PO QHS, (Reported) Scheduled PRN Oxycodone/Apap 7.5-325 (Percocet 7.5-325 Mg Tablet), 1 TAB PO PRN Q3HRS PRN for PAIN, (Reported) Patient Instructions Patient Instructions He will be discharged home. Home health care has been set up. We will get him started on outpatient therapy as soon as we are able. The patient will be on Coumadin for a month. He can weight-bear as tolerated. Worrisome signs and symptoms that should prompt a phone call to my office were discussed. We'll see him back in 2 weeks, sooner should a problem arise. GARRETT DYE II, MD Jan 04, 2017 08:51
== END 2017-01-03 17:30 | disposition home or self-care (01) | DRG 468 ==
LOC: OPSVCIP 05:39 → 4 SOUTHEST 10:50
PROVIDERS: ADMIT Orthopaedic Surgery Sports Medicine; ATTEND Orthopaedic Surgery Sports Medicine
PROC: 0SUE09Z Supplement Left Hip Joint, Acetabular Surface with Liner, Open Approach (ICD-10-PCS; 2017-01-01)
PROC: 0SRB04Z Replacement of Left Hip Joint with Ceramic on Polyethylene Synthetic Substitute, Open Approach (ICD-10-PCS; 2017-01-01)
PROC: 0SPB0JZ Removal of Synthetic Substitute from Left Hip Joint, Open Approach (ICD-10-PCS; 2017-01-01)
PROC: 0SPB09Z Removal of Liner from Left Hip Joint, Open Approach (ICD-10-PCS; principal; 2017-01-01 07:30)
DX: T84.84XA Pain due to internal orthopedic prosthetic devices, implants and grafts, initial encounter (principal); Z91.09 Other allergy status, other than to drugs and biological substances; Y83.8 Other surgical procedures as the cause of abnormal reaction of the patient, or of later complication, without mention of misadventure at the time of the procedure; Z80.1 Family history of malignant neoplasm of trachea, bronchus and lung; Y92.89 Other specified places as the place of occurrence of the external cause
CPT/HCPCS: 36415; 72170; 85014; 85018; 85027; 85610; 85730; 86850; 86900; 86901; 87071; 87075; 90686; J0171; J0330; J0690; J1100; J1170; J1885; J2270; J2370; J2405; J2704; J2710; J2795; J3010; J3490; J7030; J7120; 97110; 97116; 97150; 97530; 97535; J2001

== ENCOUNTER 2017-05-09 18:00 | Emergency (ER) | payer BC, MEDICAID, OTHER ==
[2017-05-09 19:22] LABS: ADD MAN DIFF? NO
[2017-05-09] MEDS: IV NORMAL SALINE 1000ML BAG 1,000 ML IV ×2 (19:23)
[2017-05-09 19:24] LABS: BASO % 1 % (0-3); EOS # 0.2 x10^3/uL (0.0-0.7); EOS % 5 % (0-3); HEMATOCRIT 40.2 % (39.0-53.0); HEMOGLOBIN 14.3 g/dL (13.0-17.5); LYMPH # 1.5 x10^3/uL (1.0-4.8); LYMPH % 35 % (24-48); MEAN CORPUSCULAR HEMOGLOBIN 37 pg (25-35); MEAN CORPUSCULAR HGB CONC 36 g/dL (31-37); MEAN CORPUSCULAR VOLUME 105 fL (79-100); MONO # 0.5 x10^3/uL (0.0-1.1); MONO % 11 % (0-9); NEUT % 47 % (31-73); PLATELET COUNT 310 x10^3/uL (140-400); RED BLOOD COUNT 3.85 x10^6/uL (4.30-5.70); WHITE BLOOD COUNT 4.3 x10^3/uL (4.0-11.0)
[2017-05-09] MEDS: methylPREDNISolone SOD SUCC PF 125 MG/2 ML VIAL. IV ×2 (19:29)
[2017-05-09] MEDS: IPRATRPIUM/ALBUTEROL 0.5/2.5MG 3 ML NEBU. NEB ×2 (19:34)
[2017-05-09 19:38] LABS: ANION GAP 8 (6-14); BLOOD UREA NITROGEN 6 mg/dL (8-26); BUN/CREATININE RATIO 6 (6-20); CALCIUM 8.9 mg/dL (8.5-10.1); CARBON DIOXIDE 28 mmol/L (21-32); CHLORIDE 102 mmol/L (98-107); GFR 75.2; GLUCOSE 103 mg/dL (70-99); POTASSIUM 3.9 mmol/L (3.5-5.1); SODIUM 138 mmol/L (136-145)
[2017-05-09 19:43] LABS: ALBUMIN 2.7 g/dL (3.4-5.0); ALBUMIN/GLOBULIN RATIO 0.6 (1.0-1.7); ALK PHOS 110 U/L (46-116); ALT (SGPT) 17 U/L (16-63); AST (SGOT) 24 U/L (15-37); TOTAL BILIRUBIN 0.2 mg/dL (0.2-1.0); TOTAL PROTEIN 7.3 g/dL (6.4-8.2)
[2017-05-09 19:52] LABS: CREATINE KINASE 90 U/L (39-308)
[2017-05-09 19:52] LABS: NT-PRO BNP 94 pg/mL (0-124)
[2017-05-09 19:54] LABS: CKMB INDEX 0.6 % (0-4); CKMB MASS < 0.5 ng/mL (0.0-3.6)
[2017-05-09 19:59] LABS: LACTIC ACID 0.8 mmol/L (0.4-2.0)
[2017-05-09 20:05] LABS: BILIRUBIN,URINE NEGATIVE (NEG); CLARITY,URINE CLEAR; COLOR,URINE YELLOW; GLUCOSE,URINE NEGATIVE (NEG); NITRITE,URINE NEGATIVE (NEG); PROTEIN,URINE NEGATIVE (NEG-TRACE)
[2017-05-09 20:14] LABS: INFLUENZA A PATIENT NEGATIVE (NEGATIVE); INFLUENZA B PATIENT NEGATIVE (NEGATIVE); OBC FLU VALID
[2017-05-09 20:15] LABS: BACTERIA,URINE 0 /HPF (0-FEW); RBC,URINE 0 /HPF (0-2); WBC,URINE 0 /HPF (0-4)
[2017-05-09 20:37] LABS: TROPONINI < 0.017 ng/mL (0.000-0.055)
== END 2017-05-09 20:36 | disposition home or self-care (01) ==
LOC: ER 18:00
DX: J44.1 Chronic obstructive pulmonary disease with (acute) exacerbation (principal); F17.200 Nicotine dependence, unspecified, uncomplicated; Z96.649 Presence of unspecified artificial hip joint; Z88.2 Allergy status to sulfonamides; Z91.048 Other nonmedicinal substance allergy status
CPT/HCPCS: 36415; 71045; 80053; 81001; 82553; 83605; 83880; 84484; 85025; 87040; 87804; 87804-59; 93005; 94640; 96361; 96374; 99285-25; J2930; J7030; J7620

== ENCOUNTER → 2017-05-14 | Outpatient (CLI) | payer OTHER, BC | END | disposition home or self-care (01) | LOC: KCIC MRI 10:43 | DX: M48.02 Spinal stenosis, cervical region (principal); M25.78 Osteophyte, vertebrae; M47.896 Other spondylosis, lumbar region | CPT/HCPCS: 72141 ==

== ENCOUNTER → 2017-08-23 | Outpatient (CLI) | payer OTHER, BC ==
[~2017-08-23] MED LIST changes: -AMOX500C PO; -CIPR7.5D RIGHT EAR; -CLIN150C14 PO; +CONTRAST GIVEN. MC; -CYCL10TA2 PO; -DUTA1CPM PO; -FLUT1DIS IH; -GABA-585 PO; -HYDR-2766 PO; -HYDR-963 PO; -HYDR-971 PO; -SENN8.6T99 PO; -TRAM50TA PO; -TRAZ50TA15 PO; -VARE0.5T PO; -ZOLP10TA PO
[2017-08-23] MEDS: IOHEXOL 300 MG/ML 50 ML VIAL. INT ART (13:17)
[2017-08-23] MEDS: methylPREDNISolone ACETATE 40 MG/ML VIAL. INT ART (13:17)
[2017-08-23] MEDS: LIDOCAINE 1% Multi-Dose 20 ML VIAL. ID (13:17)
[2017-08-23] MEDS: BUPIVACAINE MPF 0.25% 10 ML VIAL. INT ART (13:17)
== END | disposition home or self-care (01) ==
LOC: KCIC 12:13
DX: M25.552 Pain in left hip (principal); F17.210 Nicotine dependence, cigarettes, uncomplicated; J44.9 Chronic obstructive pulmonary disease, unspecified; Z85.118 Personal history of other malignant neoplasm of bronchus and lung; Z98.890 Other specified postprocedural states; Z87.39 Personal history of other diseases of the musculoskeletal system and connective tissue; Z96.642 Presence of left artificial hip joint; Z72.89 Other problems related to lifestyle
CPT/HCPCS: 20610; 77002; J1030; J3490; Q9967

== ENCOUNTER 2017-09-20 09:57 | Emergency (ER) | payer BC, MEDICAID, OTHER ==
[2017-09-20] MEDS: oxyCODONE/APAP 5/325 1 TAB TABLET PO (11:07)
[2017-09-20] MEDS: predniSONE 20 MG TABLET PO (11:07)
[2017-09-20] MEDS: diazePAM 5 MG TABLET PO (11:40)
[2017-09-20] MEDS: MORPHINE SULFATE 10 MG/ML VIAL. IM (11:42)
== END 2017-09-20 12:22 | disposition home or self-care (01) ==
LOC: ER 09:57
DX: M54.5 Low back pain (principal); G89.29 Other chronic pain; Z88.2 Allergy status to sulfonamides; Z91.048 Other nonmedicinal substance allergy status
CPT/HCPCS: 96372; 99284; J2270; J7512

== ENCOUNTER 2017-09-23 06:09 | Emergency (ER) | payer BC, MEDICAID ==
[2017-09-23] MEDS: diazePAM 5 MG TABLET PO (07:04)
[2017-09-23] MEDS: MORPHINE SULFATE 10 MG/ML VIAL. IM (07:05)
== END 2017-09-23 08:22 | disposition home or self-care (01) ==
LOC: ER 06:09
DX: G89.29 Other chronic pain (principal); M54.5 Low back pain; M25.552 Pain in left hip; M25.551 Pain in right hip; Z96.649 Presence of unspecified artificial hip joint; Z88.2 Allergy status to sulfonamides; Z88.8 Allergy status to other drugs, medicaments and biological substances
CPT/HCPCS: 96372; 99283; J2270

== ENCOUNTER → 2017-10-04 | Outpatient (CLI) | payer BC, MEDICAID ==
[~2017-10-04] MED LIST changes: -CONTRAST GIVEN. MC; +IOHEXOL 180 MG/ML 10 ML VIAL.; +LIDOCAINE 1% PF 2 ML VIAL.; +methylPREDNISolone ACETATE 40 MG/ML VIAL.; +methylPREDNISolone ACETATE 80 MG/ML VIAL.
== END | disposition home or self-care (01) ==
LOC: PNCL 07:43
DX: M51.16 Intervertebral disc disorders with radiculopathy, lumbar region (principal); M48.061 Spinal stenosis, lumbar region without neurogenic claudication; J44.9 Chronic obstructive pulmonary disease, unspecified; Z88.1 Allergy status to other antibiotic agents; Z91.048 Other nonmedicinal substance allergy status; Z98.890 Other specified postprocedural states; Z85.118 Personal history of other malignant neoplasm of bronchus and lung; M16.0 Bilateral primary osteoarthritis of hip; Z72.89 Other problems related to lifestyle; F17.200 Nicotine dependence, unspecified, uncomplicated; Z80.1 Family history of malignant neoplasm of trachea, bronchus and lung; Z96.642 Presence of left artificial hip joint
CPT/HCPCS: 62323; J1030; J1040; Q9965

== ENCOUNTER → 2017-10-16 | Outpatient (CLI) | payer BC, MEDICAID | END | disposition home or self-care (01) | LOC: PNCL 12:39 | DX: M51.16 Intervertebral disc disorders with radiculopathy, lumbar region (principal); M48.061 Spinal stenosis, lumbar region without neurogenic claudication; J44.9 Chronic obstructive pulmonary disease, unspecified; M16.0 Bilateral primary osteoarthritis of hip; Z98.890 Other specified postprocedural states; Z85.118 Personal history of other malignant neoplasm of bronchus and lung; Z72.89 Other problems related to lifestyle; Z80.1 Family history of malignant neoplasm of trachea, bronchus and lung; Z88.1 Allergy status to other antibiotic agents; Z91.048 Other nonmedicinal substance allergy status; Z79.899 Other long term (current) drug therapy; Z96.642 Presence of left artificial hip joint; F17.210 Nicotine dependence, cigarettes, uncomplicated | CPT/HCPCS: 62323; J1030; J1040; Q9965 ==

== ENCOUNTER → 2017-10-29 | Outpatient (CLI) | payer BC, MEDICAID ==
[~2017-10-29] MED LIST changes: -LIDOCAINE 1% PF 2 ML VIAL.; +LIDOCAINE 2% PF 2ML VIAL.
== END | disposition home or self-care (01) ==
LOC: PNCL 11:16
DX: M51.16 Intervertebral disc disorders with radiculopathy, lumbar region (principal); M48.061 Spinal stenosis, lumbar region without neurogenic claudication; Z88.2 Allergy status to sulfonamides; Z91.048 Other nonmedicinal substance allergy status; J44.9 Chronic obstructive pulmonary disease, unspecified; Z85.118 Personal history of other malignant neoplasm of bronchus and lung; M16.0 Bilateral primary osteoarthritis of hip; Z96.641 Presence of right artificial hip joint; Z72.89 Other problems related to lifestyle; Z98.890 Other specified postprocedural states; Z80.1 Family history of malignant neoplasm of trachea, bronchus and lung; Z79.899 Other long term (current) drug therapy; Z88.1 Allergy status to other antibiotic agents; F17.210 Nicotine dependence, cigarettes, uncomplicated
CPT/HCPCS: 62323; J1030; J1040; J2001; Q9965

== ENCOUNTER → 2017-11-09 | Outpatient (CLI) | payer BC, MEDICAID ==
[2017-09-23 06:10] VITALS: BP 130/78
[~2017-11-09] MED LIST changes: +AMOX500C PO; +BUPIVACAINE MPF 0.5% 10 ML VIAL for KCIC. IM ONE; +CIPR7.5D RIGHT EAR; +CLIN150C14 PO; +CYCL10TA2 PO; +CYCL5TAB PO; +DUTA1CPM PO; +FLUT1DIS IH; +GABA-585 PO; +HYDR-2766 PO; +HYDR-963 PO; +HYDR-971 PO; -IOHEXOL 180 MG/ML 10 ML VIAL.; +IOHEXOL 300 MG/ML 50 ML VIAL. INT ART ONE; +LEVO750T31 PO; +LIDOCAINE 1% Multi-Dose 20 ML VIAL. ID ONE; -LIDOCAINE 2% PF 2ML VIAL.; +OXYC-323 PO; +OXYC-327 PO; +PRED-220 PO; +SENN8.6T99 PO; +SULF1TAB24 PO; +TRAM50TA PO; +TRAZ-85 PO; +VARE0.5T PO; +VENTOLIN HFA18 GM INH; +WARF3TAB54 PO; +ZOLP10TA PO; +ZOLP6.252 PO; -methylPREDNISolone ACETATE 40 MG/ML VIAL.; +methylPREDNISolone ACETATE 40 MG/ML VIAL. INT ART ONE; -methylPREDNISolone ACETATE 80 MG/ML VIAL.
--- NOTE | 2017-11-09 17:55 | KCIC ---
PROCEDURE Therapeutic left iliopsoas injection using fluoroscopic guidance. HISTORY [Hip pain.] ? TECHNIQUE The procedure was explained to the patient as were potential risks, including among others infection, bleeding, allergic reaction or leg anesthesia from nerve infiltration. All questions were answered. Informed written consent was obtained. The anterior hip was prepped and draped in the usual sterile manner. Following administration of local anesthetic, a 22-gauge spinal needle was advanced to the expected location of the iliopsoas tendon sheath, using anatomic landmarks, and with care to avoid neurovascular structures. Stylet was removed and following negative aspiration, appropriate position was confirmed with 2 cc Omnipaque 300 contrast. A mixture of 1 cc (40 mg) Depo-Medrol, 3.5 cc 0.25% bupivacaine and 3.5 cc 1% lidocaine were injected without difficulty. The needle was removed. There was good hemostasis at the injection site. The patient left in stable condition without immediate complication. The patient was given postprocedural advice, and instructed to contact us or the emergency room if there are any complications. 3 spot images were obtained. FLUOROSCOPY TIME 1 minute 37 seconds Electronically signed by: Austin Branham MD (11/09/2017 5:52 PM) [email or web address]
== END | disposition home or self-care (01) ==
LOC: KCIC 12:35
PROVIDERS: ATTEND Orthopaedic Surgery Sports Medicine
DX: M16.0 Bilateral primary osteoarthritis of hip (principal); J44.9 Chronic obstructive pulmonary disease, unspecified; Z98.890 Other specified postprocedural states; Z85.118 Personal history of other malignant neoplasm of bronchus and lung; Z72.89 Other problems related to lifestyle; Z88.2 Allergy status to sulfonamides; Z91.048 Other nonmedicinal substance allergy status; Z80.1 Family history of malignant neoplasm of trachea, bronchus and lung; Z79.899 Other long term (current) drug therapy; M51.16 Intervertebral disc disorders with radiculopathy, lumbar region; F17.210 Nicotine dependence, cigarettes, uncomplicated; Z96.643 Presence of artificial hip joint, bilateral
CPT/HCPCS: 20610; 77002; J1030; Q9967

== ENCOUNTER → 2017-11-20 | Outpatient (CLI) | payer BC, MEDICAID ==
[2017-09-23 06:10] VITALS: BP 130/78
[~2017-11-20] MED LIST changes: -BUPIVACAINE MPF 0.5% 10 ML VIAL for KCIC. IM ONE; -IOHEXOL 300 MG/ML 50 ML VIAL. INT ART ONE; -LIDOCAINE 1% Multi-Dose 20 ML VIAL. ID ONE; -methylPREDNISolone ACETATE 40 MG/ML VIAL. INT ART ONE
--- NOTE | 2017-11-20 13:03 | PAIN ---
DATE OF SERVICE: 11/20/2017 PROGRESS NOTE FOR PAIN CLINIC DIAGNOSES: Lumbar radiculopathy with lumbar spinal stenosis and lumbar degenerative disk disease. HISTORY OF PRESENT ILLNESS: The patient is a 62-year-old male who returns for followup status post lumbar epidural steroid injection x 3. The patient reports he did very well after the first 2 injections about 70% improvement initially and then only about 20% improvement overall after the last injection. The patient reports still significant pain in the bilateral lower extremities and the low back. The patient reports it is a 9 on a scale of 10 at its worst, on average and at its least and is a 9 on a scale of 10 today. The patient reports it is radiating, aching, sharp, shooting, worse with bending, stooping, changing positions, especially with standing from sitting, sitting to standing and vice versa. The patient reports it is awakening him from sleep once again and the injections initially were doing well, had gradually worn off and not done well after his last injection with significant pain remaining. The patient reports no new motor or sensory deficits and no new bowel or bladder incontinence, worse with flexion and extension of the lumbar spine as well as bending, stooping, standing from sitting and sitting to standing. PHYSICAL EXAMINATION: VITAL SIGNS: The patient's blood pressure 134/80, pulse , respirations are 18 and temperature is 98.1 degrees Fahrenheit. Height is 6 feet 4 inches and weighs 160 pounds. GENERAL: The patient is awake, alert, oriented, appropriate and very pleasant demeanor. HEENT: Head shows normocephalic and atraumatic. Extraocular movements are intact and symmetrical. Oral cavity: Mucous membranes are moist and pink. Dentition is intact. NECK: Shows anterior throat supple without palpable lymphadenopathy noted. Swallow reflex is symmetrical. CHEST: Shows normal with inspection. Breath sounds are clear to auscultation bilaterally. HEART: Shows S1 and S2 clear. No murmurs auscultated. ABDOMEN: Soft, nontender and nondistended. No palpable organomegaly is noted. No rebound or guarding demonstrated. BACK: Shows spine grossly in the midline, some flattening of the thoracic kyphotic curvature as well as lumbar lordotic curvature with very firm rope-like tender musculature throughout the upper, middle, lower distribution of the paraspinous muscles but only diffusely tender without specific trigger points or radiation, very firm musculature bilaterally. The patient does show some increased pain with extension of the lumbar spine and axial loading of the low lumbar spine but better with forward flexion. Right and left lateral rotation is not painful and performed greater than 10 degrees, right and left and again extension 10 degrees is very painful in the low back itself without specific radiation but decreased with forward flexion at 45 degrees, which is performed without difficulty. EXTREMITIES: Lower extremities show deep tendon reflexes 1+ in the patellar and tendo-calcaneus tendons. Motor exam is approximately 4 on a scale of 5 on the left and 5/5 on the right but intact. Peripheral pulses are 1+ posterior tibia. No peripheral edema is noted bilaterally. Options were discussed with the patient. The patient's old chart was reviewed as well as his current medication regimen updated. Current review of systems updated today as well and we will preauthorize the patient for MRI scan of the lumbar spine as he is worried that something has changed as he is no longer having significant decrease in pain from the injections. He did have some significant disk bulging and mild canal narrowing on MRI from June of this year. We will obtain MRI scan to investigate any possible changes responsible for the pain and have the patient return to the clinic after the MRI scan is obtained. JUSTIN KLEIN MD DR: JOLEEN/philly JOB#: [id number] / [id number]
== END | disposition home or self-care (01) ==
LOC: PNCL 09:38
PROVIDERS: ATTEND Anesthesiology
DX: M51.16 Intervertebral disc disorders with radiculopathy, lumbar region (principal); M48.061 Spinal stenosis, lumbar region without neurogenic claudication; J44.1 Chronic obstructive pulmonary disease with (acute) exacerbation; Z79.899 Other long term (current) drug therapy; Z96.643 Presence of artificial hip joint, bilateral; Z85.118 Personal history of other malignant neoplasm of bronchus and lung; Z87.39 Personal history of other diseases of the musculoskeletal system and connective tissue; Z91.09 Other allergy status, other than to drugs and biological substances; Z88.1 Allergy status to other antibiotic agents; Z88.8 Allergy status to other drugs, medicaments and biological substances; Z88.2 Allergy status to sulfonamides; Z80.1 Family history of malignant neoplasm of trachea, bronchus and lung
CPT/HCPCS: G0463

== ENCOUNTER → 2017-11-22 | Outpatient (CLI) | payer BC, MEDICAID ==
[2017-09-23 06:10] VITALS: BP 130/78
--- NOTE | 2017-11-23 08:52 | KCIC ---
MRI Lumbar Spine without contrast History: Lumbar radiculopathy, bilateral leg numbness, worsening low back pain and bilateral leg pain Technique: Multiplanar, multi sequential noncontrast MR imaging was performed of the lumbar spine. Contrast: None Comparison: October 06, 2015 Findings: Lumbar vertebral body stature similar. There is severe narrowing of the L2-3 intervertebral disc space greater in interval, increased endplate edema at L2-3 mild increased T2 signal in the L2-3 intervertebral disc space. There is again inferior L1 Schmorl's node with mild increased STIR signal and degenerative change. There is similar negligible posterior subluxation L2 relative L3. Conus terminates at L1-2. There is again mild degenerative disc disease at L1-2 and mild disc desiccation L3-4 to L5-S1. There is again mild ectasia of the infrarenal abdominal aorta about to 0.8 cm greatest dimension. There is T2 hyperintense lesion laterally of the right kidney about 1.9 cm as seen previously, likely cyst. L1-L2: Neural foramina and spinal canal are adequate. L2-L3: There is again moderate facet hypertrophic change and mild buckling of the ligamentum flavum. There is now T2 hyperintense signal extending below the intervertebral disc space associated with the posterior margin of the L3 vertebral body, may be due to development of a Schmorl's node along the posterior margin. The is also new epidural signal abnormality in the anterior far left lateral recess which is hyperintense on the T2 sequence in overall dimension about 1.2 cm CC by 0.8 cm transverse by 0.3 cm AP. There is some increased indentation upon the ventral thecal sac in the far left lateral recess, mild to moderate narrowing of the far left lateral recess. There is very mild narrowing of the far right lateral recess. Neural foramina are overall adequate. L3-L4: There is again moderate to severe facet degenerative change. There is minimal buckling of the ligamentum flavum. Neural foramina and spinal canal are adequate. L4-L5: There is again fairly severe left and moderate to severe right facet degenerative change. There is mild buckling of the ligamentum flavum. There is negligible disc osteophyte complex, very shallow protrusion in the far right lateral recess. There is very minimal narrowing of the far right lateral recess. Neural foramina are adequate. L5-S1: There is severe facet hypertrophic change as seen previously. There is mild buckling of the ligamentum flavum. There is again moderate to severe narrowing of the far left lateral recess at location of descending left S1 nerve root, contacted by hypertrophied facet as seen previously. There is again mild narrowing of the far right lateral recess due to facet hypertrophic change. There is again moderate to severe narrowing of the left neural foramen with contact exiting left L5 nerve root, right neural foramen adequate. Impression: 1. Comparing with the 2016 exam, there is increased narrowing of the L2-3 intervertebral disc space with associated prominent endplate edema, mild increased T2 and STIR signal in the intervertebral disc space. Findings are possibly reactive/degenerative in etiology although sequela of infectious spondylitis is not excluded based on imaging findings. There is also what likely represents component of new Schmorl's node along the posterior, superior margin of the L3 vertebral body. There is also new thin epidural signal abnormality in the far left lateral recess posterior to the L3 vertebral body more superiorly which contributes to [id number] narrowing of the far left lateral recess, epidural signal abnormality which may be due to component of extrusion or fluid. 2. There is again narrowing of the far left lateral recess at L5-S1 and to lesser degree on the right, impingement of the descending left S1 nerve root. Lateral recess stenosis is due to facet hypertrophic change which also contributes to narrowing of the left L5-S1 neural foramen. 2. There is mild ectasia infrarenal abdominal aorta about 2.8 cm. There is again likely cyst of the right kidney. Electronically signed by: Nate Eugene MD (11/23/2017 8:49 AM) [id number]
== END | disposition home or self-care (01) ==
LOC: KCIC MRI 15:54
PROVIDERS: ATTEND Anesthesiology
DX: M51.16 Intervertebral disc disorders with radiculopathy, lumbar region (principal); Z88.2 Allergy status to sulfonamides; Z91.048 Other nonmedicinal substance allergy status
CPT/HCPCS: 72148

== ENCOUNTER → 2017-12-11 | Outpatient (CLI) | payer BC, MEDICAID ==
[2017-09-23 06:10] VITALS: BP 130/78
--- NOTE | 2017-12-11 13:41 | KCIC ---
CT CHEST WO CONTRAST Indication: History of mesothelioma, emphysema, COPD, smoker for 50 years, worked with asbestos Technique: Noncontrast CT imaging was performed of the chest, multiplanar reconstruction images submitted. One or more of the following individualized dose reduction techniques were utilized for this examination: 1. Automated exposure control 2. Adjustment of the mA and/or kV according to patient size 3. Use of iterative reconstruction technique. Contrast: None Comparison: October 24, [address] abdomen pelvis exam 04/30/2014 Findings: There is again emphysema with upper zone predominance. There is no new infiltrate, pleural pericardial effusion, pneumothorax, suspicious pulmonary nodularity. There is similar mild mostly linear appearing/reticular density of the right lower lobe near the lung base compatible with mild fibrotic change. Focus of relative nodularity axial image 64 series 5 about 0.8 cm in size is unchanged dating back to 2014 CT abdomen pelvis exam. Tiny right lower lobe nodule axial image 55 series 5 at 0.2 cm is also stable dating back to 2014 exam. There is similar mild biapical pleural thickening. There is again slightly ectatic ascending thoracic aorta about 3.6 cm. There is no new significant lymphadenopathy of the chest. There is no new significant abnormality of the limited visualized abdominal visceral organs. There is again exophytic hypodense lesion of the visualized superior right kidney about 1.9 cm, density measurements of a cyst. IMPRESSION: 1. There is again emphysema. 0.8 cm right lower lobe nodule near the lung base is stable dating back to 2014 exam. There is no new suspicious pulmonary nodularity or lymphadenopathy of the chest. There is again mild biapical fibrotic change. 2. There is stable mild ectasia of the ascending thoracic aorta at 3.6 cm. Electronically signed by: Nate Eugene MD (12/11/2017 1:37 PM) [email or web address]
== END | disposition home or self-care (01) ==
LOC: KCIC CT 10:37
DX: J43.9 Emphysema, unspecified (principal); I77.810 Thoracic aortic ectasia; Z96.643 Presence of artificial hip joint, bilateral; Z87.39 Personal history of other diseases of the musculoskeletal system and connective tissue; Z85.89 Personal history of malignant neoplasm of other organs and systems; Z87.891 Personal history of nicotine dependence; Z91.09 Other allergy status, other than to drugs and biological substances; Z88.2 Allergy status to sulfonamides; Z88.1 Allergy status to other antibiotic agents; Z88.8 Allergy status to other drugs, medicaments and biological substances; Z80.1 Family history of malignant neoplasm of trachea, bronchus and lung
CPT/HCPCS: 71250

== ENCOUNTER → 2017-12-18 | Outpatient (CLI) | payer BC, MEDICAID ==
[2017-09-23 06:10] VITALS: BP 130/78
[~2017-12-18] MED LIST changes: +BUPIVACAINE MPF 0.25% 10 ML VIAL. ONE; +IOHEXOL 180 MG/ML 10 ML VIAL. ONE; +LIDOCAINE 2% PF 2ML VIAL. ONE; +Vitamin B 12; +methylPREDNISolone ACETATE 40 MG/ML VIAL. ONE; +methylPREDNISolone ACETATE 80 MG/ML VIAL. ONE
--- NOTE | 2017-12-18 12:46 | PAIN ---
DATE OF SERVICE: 12/18/2017 PROGRESS NOTE FOR PAIN CLINIC DIAGNOSIS: Lumbar radiculopathy with lumbar spinal stenosis, lumbar degenerative disk disease, lumbar and lumbosacral spondylosis. HISTORY OF PRESENT ILLNESS: The patient is a 62-year-old male who returns for followup status post bilateral lumbar facet joint injections at L4-L5 and L5-S1 with very good results. He reports about 80-90% initially, but now about 50% overall, but still helping. The patient reports pain in the low back is still there, worse with extension, still a little stiff, on and off, but otherwise doing very well, has been sleeping well through the night, increasing his activity with all activities, doing walking, doing household activities, recreational activities, sitting for prolonged periods, riding in the car with much more great comfort. The patient reports his pain is aching and tight at this time, returning to some extent, but again still about 50% improved overall, after the first week was about 90%. Now, he reports his pain on a scale of 0-10, is a 7 on its worst, 6 on average, 3 at its least and is a 3 today. The patient reports no new motor or sensory deficits, no new bowel or bladder incontinence or other complaints. PHYSICAL EXAMINATION: VITAL SIGNS: The patient's blood pressure 116/78, pulse 73, respirations 16, temperature 98.3 degrees Fahrenheit, height 6 feet 5 inches, weight is 158 pounds. GENERAL: The patient is awake, alert, oriented, appropriate, very pleasant demeanor. HEENT: Head shows normocephalic, atraumatic. Extraocular movements are intact and symmetrical. Oral cavity: Mucous membranes are moist and pink. Dentition is intact. NECK: Shows anterior throat supple without palpable lymphadenopathy noted. Swallow reflex is symmetrical. CHEST: Shows normal on inspection. Breath sounds are clear to auscultation bilaterally. HEART: Shows S1, S2 clear. No murmurs auscultated. ABDOMEN: Soft, nontender, nondistended. No palpable organomegaly is noted. No rebound or guarding demonstrated. MUSCULOSKELETAL: Back shows spine grossly in the midline. The patient shows good rotational motion with some moderate tenderness in the lumbar paraspinous musculature with right and left lateral rotation greater than 10 degrees, especially with extension greater than 10 degrees. Significant pain bilaterally, essentially equal to the right and equal to the left. This decreased to a moderate extent with forward flexion at 45 degrees without significant radiation to the lower extremities. The patient's lower extremities show deep tendon reflexes at 1+ in the patellar and tendo-calcaneus tendons. Motor exam is approximately 4 on a scale of 5 with left dorsiflexion and extension and 5/5 on the right. Quadriceps and hamstring flexion equal to 5/5. Peripheral pulses are 1+ posterior tibia. No peripheral edema is noted bilaterally. Options were discussed with the patient. The patient's old chart was reviewed as his current medication regimen updated. Current review of systems updated today as well. We will proceed with repeat L4-L5 and L5-S1 facet joint injections today with fluoroscopic guidance. Risks were again discussed including, but not limited to bleeding, infection, possibility of epidural hematoma, subsequent neurologic compromise, dural puncture, headache, spinal cord and/or nerve damage, side effects of steroid medication and poor results regarding pain control. The patient understands and wished to proceed. The patient will return to the clinic in approximately 2 weeks for followup, was counseled on return appointment, activity level and side effects to be aware of. We did discuss the possibility of radiofrequency ablation in the future depending on the patient's response to this set of injections today. The patient is interested in this. We will discuss this more in the future. The patient will follow up as scheduled. DIAGNOSIS: Lumbar and lumbosacral spondylosis, lumbar degenerative disk disease, lumbar spinal stenosis. PROCEDURE: Lumbar bilateral L4-L5 and L5-S1 facet joint injections under sterile prep and drape using local anesthetic. MEDICATION INJECTED: A total of 120 mg Depo-Medrol plus total of 4 mL of 0.25% bupivacaine and a total of 2 mL of Isovue for contrast. CONDITION AT DISCHARGE: Stable. The patient tolerated the procedure well, had no complications. JUSTIN KLEIN MD DR: JOLEEN/philly JOB#: [id number] / [id number]
== END | disposition home or self-care (01) ==
LOC: PNCL 08:54
PROVIDERS: ATTEND Anesthesiology
DX: M51.16 Intervertebral disc disorders with radiculopathy, lumbar region (principal); M48.061 Spinal stenosis, lumbar region without neurogenic claudication; M47.817 Spondylosis without myelopathy or radiculopathy, lumbosacral region; Z88.2 Allergy status to sulfonamides; Z91.048 Other nonmedicinal substance allergy status
CPT/HCPCS: 64493; 64494; J1030; J1040; J2001; J3490; Q9965

== ENCOUNTER → 2017-12-27 | Outpatient (CLI) | payer OTHER, BC, MEDICAID ==
[2017-09-23 06:10] VITALS: BP 130/78
[~2017-12-27] MED LIST changes: -BUPIVACAINE MPF 0.25% 10 ML VIAL. ONE; +BUPIVACAINE MPF 0.5% 10 ML VIAL for KCIC. IM ONE; +CYAN10005 IM; -IOHEXOL 180 MG/ML 10 ML VIAL. ONE; +IOHEXOL 300 MG/ML 10ML VIAL. INT ART ONE; +LIDOCAINE 1% Multi-Dose 20 ML VIAL. ID ONE; -LIDOCAINE 2% PF 2ML VIAL. ONE; +methylPREDNISolone ACETATE 40 MG/ML VIAL. INT ART ONE; -methylPREDNISolone ACETATE 40 MG/ML VIAL. ONE; -methylPREDNISolone ACETATE 80 MG/ML VIAL. ONE
--- NOTE | 2017-12-27 15:27 | KCIC ---
PROCEDURE Therapeutic left piriformis muscle using fluoroscopic guidance. HISTORY Chronic left hip pain. TECHNIQUE The procedure was explained to the patient as were potential risks, including among others infection, bleeding, allergic reaction or leg anesthesia from nerve infiltration. All questions were answered. Informed written consent was obtained. Posterior left pelvis was prepped and draped in the usual sterile manner. Following administration of local anesthetic, a 22-gauge spinal needle was advanced to the expected location of the piriformis muscle, using anatomic landmarks, and with care to avoid neurovascular structures. Stylet was removed. A mixture of 1 cc (80 mg) Depo-Medrol and 1 cc bupivacaine were injected without difficulty. The needle was removed. There was good hemostasis at the injection site. The patient left in stable condition without immediate complication. The patient was given postprocedural instructions, instructed to contact us or the emergency room if there are any complications. A single spot image was obtained. FLUOROSCOPY TIME 59 seconds Electronically signed by: Austin Branham MD (12/27/2017 3:23 PM) [email or web address]
== END | disposition home or self-care (01) ==
LOC: KCIC 10:07
PROVIDERS: ATTEND Orthopaedic Surgery Sports Medicine
DX: M79.18 Myalgia, other site (principal); G89.29 Other chronic pain; M25.552 Pain in left hip; Z88.2 Allergy status to sulfonamides; Z88.8 Allergy status to other drugs, medicaments and biological substances; F17.200 Nicotine dependence, unspecified, uncomplicated; Z98.890 Other specified postprocedural states
CPT/HCPCS: 20552; 77002; J1030; Q9967; 20605

== ENCOUNTER → 2018-01-01 | Outpatient (CLI) | payer BC, MEDICAID ==
[2017-09-23 06:10] VITALS: BP 130/78
[~2018-01-01] MED LIST changes: +BUPIVACAINE MPF 0.25% 10 ML VIAL. ONE; -BUPIVACAINE MPF 0.5% 10 ML VIAL for KCIC. IM ONE; +IOHEXOL 180 MG/ML 10 ML VIAL. ONE; -IOHEXOL 300 MG/ML 10ML VIAL. INT ART ONE; -LIDOCAINE 1% Multi-Dose 20 ML VIAL. ID ONE; +LIDOCAINE 2% PF 2ML VIAL. ONE; -methylPREDNISolone ACETATE 40 MG/ML VIAL. INT ART ONE; +methylPREDNISolone ACETATE 40 MG/ML VIAL. ONE; +methylPREDNISolone ACETATE 80 MG/ML VIAL. ONE
--- NOTE | 2018-01-01 12:14 | PAIN ---
DATE OF SERVICE: 01/01/2018 DIAGNOSES: Lumbar radiculopathy with lumbar spinal stenosis, lumbar degenerative disk disease and lumbar and lumbosacral spondylosis. HISTORY OF PRESENT ILLNESS: The patient is a 62-year-old male who returns for followup status post bilateral L4-L5 and L5-S1 facet joint injections, most recently 12/18/2017. The patient reports about 90% improvement and still helping to about 80% level even after about 2 weeks. The patient reports the pain across the low back, not radiating to the lower extremities, aching, sharp and tight in the low back itself, worse with walking, standing, change in positions or prolonged sitting, greater than 20-30 minutes. The patient reports it is better at night. He does take a sleeping pill, but does not usually awaken him from sleep at night, but does on some nights, especially if he lies on his right side. The patient reports his pain is a 5 on a scale of 10 at its worst, 3 on average, 2 at its least and is a 3 today. The patient reports no new motor or sensory deficits, no new bowel or bladder incontinence or other complaints. PHYSICAL EXAMINATION: VITAL SIGNS: The patient's blood pressure 110/79, pulse 83, respirations 16, temperature is 98.3 degrees Fahrenheit, 6 feet 5 inches, weight is 156 pounds. GENERAL: The patient is awake, alert, oriented, appropriate, very pleasant demeanor. HEENT: Head is normocephalic, atraumatic. Extraocular movements intact and symmetrical. Oral cavity: Mucous membranes moist and pink. Dentition is intact. NECK: Shows anterior throat supple without palpable lymphadenopathy noted. Swallow reflex symmetrical. CHEST: Shows normal with inspection. Breath sounds clear to auscultation bilaterally. HEART: Shows S1, S2 clear. No murmurs auscultated. ABDOMEN: Soft, nontender, nondistended. No palpable organomegaly is noted. No rebound or guarding demonstrated. BACK: Shows spine grossly in the midline. Normal appearing thoracic kyphosis, mild flattening of lumbar lordotic curvature. Lumbar paraspinous muscle shows symmetrical on inspection. On palpation shows some moderate tenderness only diffusely without radiation. The patient's back shows good rotation of motion with some moderate tenderness with rotation past 10 degrees right and left as well as extension with significant pain with extension and axial loading of the lumbar spine, but decreased and almost completely relieved with forward flexion at 45 degrees. EXTREMITIES: The patient's lower extremities show deep tendon reflexes 1+ in the patellar and tendo-calcaneus tendons. Motor exam is approximately 4 on a scale of 5 on the left and 5/5, right, but intact with dorsiflexion, extension, quadriceps and hamstring flexion. Peripheral pulses are 1+ posterior tibia. No peripheral edema is noted bilaterally. Options were discussed with the patient. The patient's old chart was reviewed, as his current medication regimen updated. Current review of systems updated today as well, and we will proceed with a repeat bilateral L4-L5 and L5-S1 facet joint injections today with fluoroscopic guidance. Risks were again discussed including, but not limited to bleeding, infection, possibility of epidural hematoma and subsequent neurological compromise, dural puncture, headaches, spinal cord and/or nerve damage, side effects of steroid medication and poor results regarding pain control. The patient understands and wished to proceed. The patient will return to clinic in approximately 2 weeks for followup, was counseled on return appointment, activity level and side effects to be aware of. We discussed possibility of radiofrequency ablation if the pain keeps returning as it has and the patient would like to consider this in the future if the pain does return. DIAGNOSIS: Lumbar and lumbosacral spondylosis. PROCEDURES: Lumbar bilateral L4-L5 and L5-S1 facet joint injections using C-arm fluoroscopic guidance under sterile prep and drape using local anesthetic. MEDICATION INJECTED: A total of 120 mg Depo-Medrol, plus total of 4 mL of 0.25% bupivacaine and 2 mL total of Isovue for contrast. CONDITION AT DISCHARGE: Stable. The patient tolerated procedure well, had no complications. JUSTIN KLEIN MD DR: JOLEEN/[place] JOB#: [id number] / [id number]
== END | disposition home or self-care (01) ==
LOC: PNCL 08:59
PROVIDERS: ATTEND Anesthesiology
DX: M47.817 Spondylosis without myelopathy or radiculopathy, lumbosacral region (principal); M51.16 Intervertebral disc disorders with radiculopathy, lumbar region; M48.061 Spinal stenosis, lumbar region without neurogenic claudication; Z88.2 Allergy status to sulfonamides; Z88.8 Allergy status to other drugs, medicaments and biological substances
CPT/HCPCS: 64493; 64494; J1030; J1040; J2001; J3490; Q9965

== ENCOUNTER 2018-01-13 08:37 | Emergency (ER) | payer BC, MEDICAID ==
[~2018-01-13] VITALS: Ht 195.6 cm; Wt 73.0 kg
[~2018-01-13 08:37] MED LIST changes: -BUPIVACAINE MPF 0.25% 10 ML VIAL. ONE; -IOHEXOL 180 MG/ML 10 ML VIAL. ONE; -LIDOCAINE 2% PF 2ML VIAL. ONE; -methylPREDNISolone ACETATE 40 MG/ML VIAL. ONE; -methylPREDNISolone ACETATE 80 MG/ML VIAL. ONE
--- NOTE | 2018-01-13 09:04 | PHYS DOC ---
Past Medical History Past Medical History: Other Additional Past Medical Histor: possible mesothelioma, chronic back pain, neuropathy Past Surgical History: Hip Replacement, Other Additional Past Surgical Histo: HIP REPLACEMENT x 2 Alcohol Use: Rarely Drug Use: None Adult General Chief Complaint Chief Complaint: URINARY RETENTION HPI HPI Patient is a 62-year-old male who presents to the emergency department for evaluation of urinary retention. He states he was in his usual state of health, and last urinated at about noon yesterday, and states he has been unable to urinate, even a small amount, since that time. He reports discomfort due to the distention and fullness of his bladder, but is not having any other complaints of pain. He has not had any fevers or chills, nausea, vomiting. He is getting antibiotics, both Zosyn, as well as another daily antibiotic, via a PICC line, in his right arm. He states that this is for a spine infection. He has not had any numbness or weakness. He has not had any urinary dribbling. He has not had any incontinence, or saddle anesthesia. There are no alleviating or exacerbating factors to his symptoms otherwise. Review of Systems Review of Systems Constitutional: Denies fever or chills [] Eyes: Denies change in visual acuity, redness, or eye pain [] HENT: Denies nasal congestion or sore throat [] Respiratory: Denies cough or shortness of breath [] Cardiovascular:The patient denies any shortness of breath, chest pain, palpitations, or orthopnea[] GI: Denies abdominal pain, nausea, vomiting, bloody stools or diarrhea [] : Denies dysuria or hematuria. Reports urinary retention. [] Musculoskeletal: Denies back pain or joint pain [] Integument: Denies rash or skin lesions [] Neurologic: Denies headache, focal weakness or sensory changes. Denies any fecal or urinary incontinence. [] Endocrine: Denies polyuria or polydipsia. [] All other systems were reviewed and found to be within normal limits, except as documented in this note. Allergies Allergies Allergies Coded Allergies Type Severity Reaction Last Updated Verified Sulfa (Sulfonamide Antibiotics) Allergy Intermediate rash 01/01/17 Yes cobalt Allergy Intermediate 01/03/18 Yes Physical Exam Physical Exam PHYSICAL EXAM: CONSTITUTIONAL: Well developed, well nourished HEAD: normocephalic, atraumatic EENT: PERRL, EOMI. Conjunctivae normal color, sclerae non-icteric; moist mucous membranes. NECK: Supple, non-tender; no meningismus. LUNGS: Lungs CTA, breathing even and unlabored. Normal air movement. HEART: Regular rate and rhythm, no murmur CHEST: No deformity; non-tender ABDOMEN: The abdomen is soft, there is tenderness to palpation and some firmness palpable in the lower abdomen consistent bladder distention. The remainder the abdomen is soft and non-tender, no masses or bruits. EXTREM: Normal ROM; no deformity, no calf tenderness. Normal pulses palpable in all extremities. There is no pedal edema. SKIN: No rash; no diaphoresis NEURO: Alert; normal speech and cognition; CN's grossly intact; strength grossly intact without focal deficit. BACK: No CVA TTP. Current Patient Data Vital Signs Vital Signs Date Time Temp Pulse Resp B/P (MAP) Pulse Ox O2 Delivery O2 Flow Rate FiO2 01/13/18 09:30 78 18 97 01/13/18 08:40 97.7 137/74 (95) Room Air 97.7 Lab Values Laboratory Tests Test 01/13/18 09:30 Urine Collection Type Unknown Urine Color Yellow Urine Clarity Clear Urine pH 5.5 Urine Specific [place] 1.010 Urine Protein Negative mg/dL (NEG-TRACE) Urine Glucose (UA) Negative mg/dL (NEG) Urine Ketones (Stick) Negative mg/dL (NEG) Urine Blood Negative (NEG) Urine Nitrite Negative (NEG) Urine Bilirubin Negative (NEG) Urine Urobilinogen Dipstick 0.2 mg/dL (0.2 mg/dL) Urine Leukocyte Esterase Negative (NEG) Urine RBC 0 /HPF (0-2) Urine WBC 0 /HPF (0-4) Urine Squamous Epithelial Cells Occ /LPF Urine Bacteria 0 /HPF (0-FEW) EKG EKG [] Radiology/Procedures Radiology/Procedures [] Course & Med Decision Making Course & Med Decision Making Pertinent Labs and Imaging studies reviewed. (See chart for details) [10:05 AM:] The patient's condition remained stable. He is feeling significantly better after getting a catheter placed. He'll be given a leg bag and I discussed importance of close urology follow-up for further evaluation. Dragon Disclaimer Dragon Disclaimer This electronic medical record was generated, in whole or in part, using a voice recognition dictation system. Departure Departure Impression: Primary Impression: Urinary retention Disposition: HOME, SELF-CARE Condition: STABLE Referrals: MANI ZENG (PCP) ODILON CARRASCO MD Patient Instructions: [place] Catheter Care, Adult, Urinary Retention, Acute, Male Scripts Tamsulosin Hcl (FLOMAX) 0.4 Mg Cap.er.24h 1 CAP PO DAILY, #30 CAP 0 Refills Prov: RODGER DIANE MD 01/13/18 RODGER DIANE MD Jan 13, 2018 09:04
[2018-01-13 09:42] LABS: BILIRUBIN,URINE NEGATIVE (NEG); CLARITY,URINE CLEAR; COLOR,URINE YELLOW; NITRITE,URINE NEGATIVE (NEG); PH,URINE 5.5; PROTEIN,URINE NEGATIVE (NEG-TRACE); UROBILINOGEN,URINE 0.2 mg/dL (0.2 mg/dL)
[2018-01-13 10:00] LABS: SQUAMOUS EPITHELIAL CELL,UR OCC /LPF
[2018-01-13 10:01] LABS: BACTERIA,URINE 0 /HPF (0-FEW); RBC,URINE 0 /HPF (0-2); WBC,URINE 0 /HPF (0-4)
[2018-01-13] MEDS ORDERED: TAMS0.4C97 PO (10:10)
[2018-01-13 10:30] VITALS: BP 125/70
== END 2018-01-13 10:44 | disposition home or self-care (01) ==
LOC: ER 08:37
DX: R33.9 Retention of urine, unspecified (principal); G89.29 Other chronic pain; Z88.2 Allergy status to sulfonamides; Z88.8 Allergy status to other drugs, medicaments and biological substances
CPT/HCPCS: 51702; 81001; 99284-25

== ENCOUNTER 2018-01-22 18:08 | Emergency (ER) | payer BC, MEDICAID ==
[~2018-01-22] VITALS: Ht 195.6 cm; Wt 73.0 kg
[~2018-01-22 18:08] MED LIST changes: +TAMS0.4C97 PO
--- NOTE | 2018-01-22 18:46 | PDOC1 ---
History and Physical Date of Admission Date of Admission DATE: 01/22/18 TIME: 18:45 Identification/Chief Complaint Chief Complaint document cancelled Current Medications Current Medications Active Scripts Active Flomax (Tamsulosin Hcl) 0.4 Mg Cap.er.24h 1 Cap PO DAILY Percocet 5-325 Mg Tablet (Oxycodone/Acetaminophen) 1 Each Tablet 1 Tab PO BID PRN 4 Days Ventolin Hfa Inhaler (Albuterol Sulfate) 18 Gm Hfa.aer.ad 2 Puff INH Q4HRS PRN Reported Vitamin B-12 (Cyanocobalamin (Vitamin B-12)) 1,000 Mcg Tablet 1,000 Mcg IM WEEKLY Cyclobenzaprine Hcl 10 Mg Tablet 1 Tab PO PRN TID PRN Trazodone Hcl 50 Mg Tablet 50 Mg PO HS Advair 100-50 Diskus (Fluticasone/Salmeterol) 1 Each Disk.w.dev 1 Puff IH BID LAST DOSE GIVEN: DATE:02-03-15 TIME:9:00 a.m. NEXT DOSE DUE: DATE:02-03-15 TIME:9:00 p.m. Allergies Allergies: Coded Allergies: Sulfa (Sulfonamide Antibiotics) (Verified Allergy, Intermediate, rash, 01/01/17) cobalt (Verified Allergy, Intermediate, 01/03/18) COBALT METAL USED IN ORTHOPEDIC EQUIPMENT REACTED WITH SKIN TESTING Physical Exam General: Alert, Oriented X3, Cooperative VTE Prophylaxis Ordered VTE Prophylaxis Devices: Yes VTE Pharmacological Prophylaxi: Yes SHANNON WHITEHEAD MD Jan 22, 2018 18:45
[2018-01-22 19:20] VITALS: BP 131/81
--- NOTE | 2018-01-22 19:26 | PHYS DOC ---
Past Medical History Past Medical History: Other Additional Past Medical Histor: possible mesothelioma, chronic back pain, neuropathy Past Surgical History: Hip Replacement, Other Additional Past Surgical Histo: HIP REPLACEMENT x 2,Spine biopsy Alcohol Use: Occasionally Drug Use: None Adult General Chief Complaint Chief Complaint: URINE CATHETER PROBLEM HPI HPI Patient is a 62 year old male who presents with 4 catheter problem. He is a comp [facility] recent history he had discitis he is on IV antibiotics he had urinary retention 9 days ago seen in the emergency room for catheter was placed he sees urologist to [facility] apparently he is getting a medication check his prostate. He says he has had intermittent bleeding and increased irritation in his distal penis area and the urologist can see him and so he was advised by his urologist come to the emergency room for removal. Review of Systems Review of Systems Negative for dysuria negative for fever negative for vomiting Allergies Allergies Allergies Coded Allergies Type Severity Reaction Last Updated Verified Sulfa (Sulfonamide Antibiotics) Allergy Intermediate rash 01/01/17 Yes cobalt Allergy Intermediate 01/03/18 Yes Physical Exam Physical Exam Constitutional: Well developed, well nourished, no acute distress, non-toxic appearance. [] HENT: Normocephalic, atraumatic, bilateral external ears normal, oropharynx moist, no oral exudates, nose normal. [] Eyes: PERRLA, EOMI, conjunctiva normal, no discharge. [] Pulmonary: Normal respiratory effort no increased work of breathing no obvious chest wall trauma Abdomen: soft, no tenderness, no masses, no pulsatile masses. gu Fulton draining yellow urine Skin: Warm, dry, no erythema, no rash. [] Back: No tenderness, no CVA tenderness. [] Extremities: No tenderness, no cyanosis, no clubbing, ROM intact, no edema. [] Neurologic: Alert and oriented X 3, normal motor function, normal sensory function, no focal deficits noted. [] Psychologic: Affect normal, judgement normal, mood normal. [] Current Patient Data Vital Signs Vital Signs Date Time Temp Pulse Resp B/P (MAP) Pulse Ox O2 Delivery O2 Flow Rate FiO2 01/22/18 19:20 75 20 131/81 (98) 98 Room Air 01/22/18 18:56 98.8 98.8 EKG EKG [] Radiology/Procedures Radiology/Procedures [] Course & Med Decision Making Course & Med Decision Making Pertinent Labs and Imaging studies reviewed. (See chart for details) []F[place]on was removed per the patient's request. I did give him detailed counseling about the risk of potential urinary retention and the possible need to come back in 6-12 hours if he does not urinate he is willing to take this risk he wants this catheter out. He has no fever no vomiting no other signs of any urinary tract infection and I don't think we need to send the urine at this time Dragon Disclaimer Dragon Disclaimer This electronic medical record was generated, in whole or in part, using a voice recognition dictation system. Departure Departure Impression: Primary Impression: Encounter for F[place]on catheter removal Disposition: HOME, SELF-CARE Condition: STABLE Patient Instructions: Benign Prostatic Hypertrophy CHASIDY LEBRON MD Jan 22, 2018 19:26
== END 2018-01-22 19:21 | disposition home or self-care (01) ==
LOC: ER 18:08
DX: Z46.6 Encounter for fitting and adjustment of urinary device (principal); R33.9 Retention of urine, unspecified; N48.89 Other specified disorders of penis; G89.29 Other chronic pain; Z88.2 Allergy status to sulfonamides; Z88.8 Allergy status to other drugs, medicaments and biological substances
CPT/HCPCS: 99281

== ENCOUNTER 2018-01-29 03:56 | Emergency (ER) | payer BC, MEDICAID ==
[~2018-01-29] VITALS: Ht 195.6 cm; Wt 70.3 kg
[2018-01-29 04:30] VITALS: BP 118/68
--- NOTE | 2018-01-29 04:31 | PHYS DOC ---
Past Medical History Past Medical History: Other Additional Past Medical Histor: possible mesothelioma, chronic back pain, neuropathy Past Surgical History: Hip Replacement, Other Additional Past Surgical Histo: HIP REPLACEMENT x 2,Spine biopsy Alcohol Use: Occasionally Drug Use: None Adult General Chief Complaint Chief Complaint: URINARY RETENTION HPI HPI Patient is a 63 year old male who presents with urinary retention after having F[place] catheter removed earlier today patient last urinated several hours ago. Reports distended bladder, suprapubic pain. No fever chills, nausea vomiting or sweats. Patient's currently on antibiotics for treatment of discitis and has an outpatient appointment with his urologist on Sunday. [] Review of Systems Review of Systems Review symptoms as per history of present illness. All other systems were reviewed and found to be within normal limits, except as documented in this note. Allergies Allergies Allergies Coded Allergies Type Severity Reaction Last Updated Verified Sulfa (Sulfonamide Antibiotics) Allergy Intermediate rash 01/01/17 Yes cobalt Allergy Intermediate 01/03/18 Yes Physical Exam Physical Exam Constitutional: Well developed, well nourished. [] HENT: Normocephalic, atraumatic, bilateral external ears normal, nose normal. [] Eyes: PERRLA, EOMI, conjunctiva normal, no discharge. [] Neck: Normal range of motion, no tenderness, supple, no stridor. [] Cardiovascular:Heart rate regular rhythm, no murmur [] Lungs & Thorax: Bilateral breath sounds clear to auscultation [] Abdomen: Bowel sounds normal, soft, distended bladder. [] Neurologic: Alert and oriented X 3, normal motor function, normal sensory function, no focal deficits noted. This was steady gait [] Psychologic: Affect normal, judgement normal, mood normal. [] EKG EKG [] Radiology/Procedures Radiology/Procedures [] Course & Med Decision Making Course & Med Decision Making Pertinent Labs and Imaging studies reviewed. (See chart for details) [F[place]on catheter placed with greater than 1000 ml of urine and output. Symptoms relieved. Urology follow up as scheduled. . ] Dragon Disclaimer Dragon Disclaimer This electronic medical record was generated, in whole or in part, using a voice recognition dictation system. Departure Departure Impression: Primary Impression: Acute urinary retention Disposition: HOME, SELF-CARE Condition: GOOD Referrals: MANI ZENG (PCP) Patient Instructions: Urinary Retention, Acute, Male, [id number] ALEJANDRO PINEDA DO Jan 29, 2018 04:31
[2018-01-29 04:37] LABS: BILIRUBIN,URINE NEGATIVE (NEG); CLARITY,URINE CLEAR; COLOR,URINE YELLOW; NITRITE,URINE NEGATIVE (NEG); PH,URINE 5.5; PROTEIN,URINE NEGATIVE (NEG-TRACE)
[2018-01-29 04:45] LABS: BACTERIA,URINE 0 /HPF (0-FEW); RBC,URINE 0 /HPF (0-2); SQUAMOUS EPITHELIAL CELL,UR OCC /LPF; WBC,URINE 0 /HPF (0-4)
== END 2018-01-29 04:50 | disposition home or self-care (01) ==
LOC: ER 03:56
DX: R33.9 Retention of urine, unspecified (principal); G89.29 Other chronic pain; Z96.649 Presence of unspecified artificial hip joint; Z88.2 Allergy status to sulfonamides; Z88.8 Allergy status to other drugs, medicaments and biological substances
CPT/HCPCS: 51702; 81001; 99284-25

== ENCOUNTER 2018-02-03 17:42 | Emergency (ER) | payer BC, MEDICAID ==
[~2018-02-03] VITALS: Ht 195.6 cm; Wt 72.1 kg
[2018-02-03 18:55] VITALS: BP 158/74
[2018-02-03 19:28] LABS: BILIRUBIN,URINE NEGATIVE (NEG); CLARITY,URINE CLOUDY; COLOR,URINE RED; NITRITE,URINE NEGATIVE (NEG); PROTEIN,URINE 100 mg/dL (NEG-TRACE)
[2018-02-03 19:37] LABS: BACTERIA,URINE 0 /HPF (0-FEW); RBC,URINE TNTC /HPF (0-2)
[2018-02-03 19:38] LABS: YEAST,URINE PRESENT /HPF
--- NOTE | 2018-02-03 20:31 | PHYS DOC ---
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 Past Surgical History: Hip Replacement, Other Additional Past Surgical Histo: HIP REPLACEMENT x 2,Spine biopsy Alcohol Use: Occasionally Drug Use: None Adult General Chief Complaint Chief Complaint: URINE CATHETER PROBLEM HPI HPI Patient is a 63 year old male who presents with urinary catheter problem. Patient has had his current urinary catheter in place approximately a week. He has noted urine draining around the catheter. And then noticed some blood in the catheter bag this evening since arriving to the emergency department. The leakage around the urinary catheter started this morning. Nothing seems to make it better or worse. Patient is currently undergoing IV antibiotic therapy through a PICC line for a spinal cord infection. He is currently on Zosyn via PICC line. Patient denies any fevers. Denies any flank pain. Denies any new urinary tract. pain[] Review of Systems Review of Systems Constitutional: Denies fever or chills [] Eyes: Denies change in visual acuity, redness, or eye pain [] HENT: Denies nasal congestion or sore throat [] Respiratory: Denies cough or shortness of breath [] Cardiovascular: No chest pain or palpitations[] GI: Denies abdominal pain, nausea, vomiting, bloody stools or diarrhea [] : Denies dysuria [] Musculoskeletal: Denies back pain or joint pain [] Integument: Denies rash or skin lesions [] Neurologic: Denies headache, focal weakness or sensory changes [] Endocrine: Denies polyuria or polydipsia [] All other systems were reviewed and found to be within normal limits, except as documented in this note. Allergies Allergies Allergies Coded Allergies Type Severity Reaction Last Updated Verified Sulfa (Sulfonamide Antibiotics) Allergy Intermediate rash 01/01/17 Yes cobalt Allergy Intermediate 01/03/18 Yes Physical Exam Physical Exam Constitutional: Well developed, well nourished, no acute distress, non-toxic appearance. [] HENT: Normocephalic, atraumatic, bilateral external ears normal, oropharynx moist, no oral exudates, nose normal. [] Eyes: PERRLA, EOMI, conjunctiva normal, no discharge. [] Neck: Normal range of motion, no tenderness, supple, no stridor. [] Cardiovascular:Heart rate regular rhythm, no murmur [] Lungs & Thorax: Bilateral breath sounds clear to auscultation [] Abdomen: Bowel sounds normal, soft, no tenderness, no masses, no pulsatile masses. [] Skin: Warm, dry, no erythema, no rash. [] Back: No tenderness, no CVA tenderness. [] : Normal male, bilateral descended testes, urinary catheter appears to be in good position. Small amount of blood in the urinary catheter bag Extremities: No tenderness, no cyanosis, no clubbing, ROM intact, no edema. [] Neurologic: Alert and oriented X 3, normal motor function, normal sensory function, no focal deficits noted. [] Psychologic: Affect normal, judgement normal, mood normal. [] Current Patient Data Vital Signs Vital Signs Date Time Temp Pulse Resp B/P (MAP) Pulse Ox O2 Delivery O2 Flow Rate FiO2 02/03/18 18:55 98.3 77 16 158/74 (102) 98 Room Air 98.3 Lab Values Laboratory Tests Test 02/03/18 19:17 Urine Collection Type U cath Urine Color Red Urine Clarity Cloudy Urine pH 7.0 Urine Specific [place] 1.025 Urine Protein 100 mg/dL (NEG-TRACE) Urine Glucose (UA) Negative mg/dL (NEG) Urine Ketones (Stick) Trace mg/dL (NEG) Urine Blood Large (NEG) Urine Nitrite Negative (NEG) Urine Bilirubin Negative (NEG) Urine Urobilinogen Dipstick 1.0 mg/dL (0.2 mg/dL) Urine Leukocyte Esterase Small (NEG) Urine RBC Tntc /HPF (0-2) Urine WBC 5-10 /HPF (0-4) Urine Squamous Epithelial Cells None /LPF Urine Bacteria 0 /HPF (0-FEW) Urine Mucus Slight /LPF Urine Yeast Present /HPF EKG EKG [] Radiology/Procedures Radiology/Procedures [] Course & Med Decision Making Course & Med Decision Making Pertinent Labs and Imaging studies reviewed. (See chart for details) ED course: Patient arrived, was placed in the common tolerated exam well. His balloon for the [place] catheter was drained and found to only have 8 mL which had 15. This was refilled with the appropriate amount. Patient was discharged in improved condition. Medical decision making: This does not appear to be in a evidence of uncontrolled bleeding. Ears be more of an irritation type of issue. Urine Culture is being sent to ensure if anything does grow it is sensitive to the ZOSYN that he is currently taking.[] Dragon Disclaimer Dragon Disclaimer This electronic medical record was generated, in whole or in part, using a voice recognition dictation system. Departure Departure Impression: Primary Impression: Urinary catheter complication Disposition: 01 HOME, SELF-CARE Condition: Referrals: MANI ZENG (PCP) 2 day follow up Patient Instructions: [place] Catheter Care, Adult Additional Instructions: Follow-up with your regular doctor in 2 days. Return to the ER if any concerns. Problem Qualifiers Primary Impression: Urinary catheter complication Encounter type: initial encounter Qualified Codes: T83.9XXA - Unspecified complication of genitourinary prosthetic device, implant and graft, initial encounter JAZZ THOMAS DO Feb 03, 2018 20:31
== END 2018-02-03 20:40 | disposition home or self-care (01) ==
LOC: ER 17:42
DX: T83.038A Leakage of other urinary catheter, initial encounter (principal); G89.29 Other chronic pain; Z96.649 Presence of unspecified artificial hip joint; Z88.2 Allergy status to sulfonamides; Z91.048 Other nonmedicinal substance allergy status
CPT/HCPCS: 81001; 87086; 99284

== ENCOUNTER 2018-02-09 18:11 | Emergency (ER) | payer BC, MEDICAID ==
[~2018-02-09] VITALS: Ht 195.6 cm; Wt 72.6 kg
[~2018-02-09 18:11] MED LIST changes: +HYDR-3135 PO; +HYDR-3164 PO; -HYDR-963 PO; -HYDR-971 PO
[2018-02-09 18:48] LABS: BILIRUBIN,URINE NEGATIVE (NEG); CLARITY,URINE CLEAR; NITRITE,URINE NEGATIVE (NEG); PH,URINE 5.5; PROTEIN,URINE NEGATIVE (NEG-TRACE); UROBILINOGEN,URINE 0.2 mg/dL (0.2 mg/dL)
--- NOTE | 2018-02-09 18:52 | PHYS DOC ---
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 Past Surgical History: Hip Replacement, Other Additional Past Surgical Histo: HIP REPLACEMENT x 2,Spine biopsy Alcohol Use: Occasionally Drug Use: None Adult General Chief Complaint Chief Complaint: URINARY RETENTION HPI HPI 63-year-old male presents with one-day history of urinary retention. Patient with recent catheterization for same which was removed by urology yesterday afternoon. Patient reports he was able to completely void yesterday afternoon. Reports did void this morning but was limited. Patient with increasing suprapubic discomfort and pain. Denies fever or chills. Denies known trauma. Patient does report "spinal infection "for which she has been receiving Zosyn for several weeks. Review of Systems Review of Systems Constitutional: Denies fever or chills [] Respiratory: Denies cough or shortness of breath [] Cardiovascular: Denies chest pain or palpitations GI: Denies nausea, vomiting, or diarrhea; reports suprapubic pain : Reports urinary retention, denies hematuria Musculoskeletal: Denies back pain or joint pain [] Integument: Denies rash or skin lesions [] Neurologic: Denies headache, focal weakness or sensory changes [] Complete systems were reviewed and found to be within normal limits, except as documented in this note. Allergies Allergies Allergies Coded Allergies Type Severity Reaction Last Updated Verified Sulfa (Sulfonamide Antibiotics) Allergy Intermediate rash 01/01/17 Yes cobalt Allergy Intermediate 01/03/18 Yes Physical Exam Physical Exam Constitutional: Well developed, well nourished, no acute distress, non-toxic appearance. [] HENT: Normocephalic, atraumatic Eyes: Conjunctiva normal, no discharge. [] Neck: Normal range of motion, supple Cardiovascular:Heart rate regular rhythm, no murmur [] Lungs & Thorax: Bilateral breath sounds clear to auscultation [] Abdomen: Suprapubic fullness and tenderness to palpation Skin: Warm, dry, no erythema, no rash. [] Extremities: No tenderness, no edema. [] Neurologic: Alert and oriented X 3, normal motor function, normal sensory function, no focal deficits noted. [] Psychologic: Affect normal, judgement normal, mood normal. [] Current Patient Data Vital Signs Vital Signs Date Time Temp Pulse Resp B/P (MAP) Pulse Ox O2 Delivery O2 Flow Rate FiO2 02/09/18 18:24 97.8 97 20 124/67 (86) 97 Room Air 97.8 Lab Values Laboratory Tests Test 02/09/18 18:35 Urine Collection Type U cath Urine Color Straw Urine Clarity Clear Urine pH 5.5 Urine Specific [place] <=1.005 Urine Protein Negative mg/dL (NEG-TRACE) Urine Glucose (UA) Negative mg/dL (NEG) Urine Ketones (Stick) Negative mg/dL (NEG) Urine Blood Small (NEG) Urine Nitrite Negative (NEG) Urine Bilirubin Negative (NEG) Urine Urobilinogen Dipstick 0.2 mg/dL (0.2 mg/dL) Urine Leukocyte Esterase Negative (NEG) Urine RBC Rare /HPF (0-2) Urine WBC Rare /HPF (0-4) Urine Squamous Epithelial Cells Occ /LPF Urine Bacteria 0 /HPF (0-FEW) Urine Yeast Present /HPF EKG EKG [] Radiology/Procedures Radiology/Procedures [] Course & Med Decision Making Course & Med Decision Making Pertinent Labs and Imaging studies reviewed. (See chart for details) Patient presents with history of present illness and physical exam consistent for urinary retention. Patient with history of recent urinary retention requiring catheterization which was removed by urology yesterday afternoon. Patient reports last void was limited this morning. Fulton catheterization performed with significant output. UA obtained without signs of infection. Patient stable for discharge with outpatient follow-up with PCP/urology. Discussed findings and plan with patient and family, who acknowledge understanding and agreement. Dragon Disclaimer Dragon Disclaimer This electronic medical record was generated, in whole or in part, using a voice recognition dictation system. Departure Departure Impression: Primary Impression: Urinary retention Disposition: 01 HOME, SELF-CARE Condition: STABLE Referrals: MANI ZENG (PCP) Patient Instructions: F[place]on Catheter Care, Adult, Urinary Retention, Acute, Male, [id number] Additional Instructions: Please follow with your urologist at . AIDAN FRANCOIS DO Feb 09, 2018 18:52
[2018-02-09 18:55] LABS: BACTERIA,URINE 0 /HPF (0-FEW); RBC,URINE RARE /HPF (0-2); SQUAMOUS EPITHELIAL CELL,UR OCC /LPF; WBC,URINE RARE /HPF (0-4)
[2018-02-09 18:56] LABS: COLOR,URINE STRAW; YEAST,URINE PRESENT /HPF
[2018-02-09 19:52] VITALS: BP 113/60
== END 2018-02-09 19:52 | disposition home or self-care (01) ==
LOC: ER 18:11
DX: R33.9 Retention of urine, unspecified (principal); R10.30 Lower abdominal pain, unspecified; G89.29 Other chronic pain; Z96.649 Presence of unspecified artificial hip joint; Z88.2 Allergy status to sulfonamides; Z88.8 Allergy status to other drugs, medicaments and biological substances
CPT/HCPCS: 51702; 81001; 99284-25

== ENCOUNTER 2018-02-13 11:47 | Emergency (ER) | payer BC, MEDICAID ==
[~2018-02-13] VITALS: Ht 195.6 cm; Wt 72.6 kg
[2018-02-13 12:19] VITALS: BP 145/81
--- NOTE | 2018-02-13 12:25 | PHYS DOC ---
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 Past Surgical History: Hip Replacement, Other Additional Past Surgical Histo: HIP REPLACEMENT x 2,Spine biopsy Alcohol Use: Occasionally Drug Use: None Adult General Chief Complaint Chief Complaint: URINE CATHETER PROBLEM HPI HPI Patient is a 63-year-old male who presents to the emergency department for evaluation. He states he simply needs a new leg bag for his Fulton catheter. He states he had a F[place]on catheter placed a few days ago for urinary retention. He also has a PICC line in place, and is receiving IV antibiotics for an infection in the spine. He states he has an appointment with the urologist this coming Sunday, for urinary retention,, and his catheter has been draining normally. He has no other complaints other than needing additional supplies for his Fulton catheter. Review of Systems Review of Systems Constitutional: Denies fever or chills [] GI: Denies abdominal pain, nausea, vomiting, bloody stools or diarrhea [] : Denies dysuria or hematuria [] Musculoskeletal: Denies back pain or joint pain [] Integument: Denies rash or skin lesions [] Neurologic: Denies headache, focal weakness or sensory changes [] Allergies Allergies Allergies Coded Allergies Type Severity Reaction Last Updated Verified Sulfa (Sulfonamide Antibiotics) Allergy Intermediate rash 01/01/17 Yes cobalt Allergy Intermediate 01/03/18 Yes Physical Exam Physical Exam PHYSICAL EXAM: CONSTITUTIONAL: Well developed, well nourished HEAD: normocephalic, atraumatic EENT: PERRL, EOMI. Conjunctivae normal color, sclerae non-icteric; moist mucous membranes. NECK: Supple, non-tender; no meningismus. LUNGS: Lungs CTA, breathing even and unlabored. Normal air movement. HEART: Regular rate and rhythm, no murmur CHEST: No deformity; non-tender ABDOMEN: The abdomen is soft, and non-tender, no masses or bruits. EXTREM: Normal ROM; no deformity, no calf tenderness. Normal pulses palpable in all extremities. There is no pedal edema. SKIN: No rash; no diaphoresis NEURO: Alert; normal speech and cognition; CN's grossly intact; strength grossly intact without focal deficit. BACK: No CVA TTP. EKG EKG [] Radiology/Procedures Radiology/Procedures [] Course & Med Decision Making Course & Med Decision Making Patient was provided a F[place]on catheter leg bag and instructed to follow-up with his urologist as scheduled. Return precautions were discussed in detail with the patient. Dragon Disclaimer Dragon Disclaimer This electronic medical record was generated, in whole or in part, using a voice recognition dictation system. Departure Departure Impression: Primary Impression: Urinary catheter in place Additional Impression: Urinary retention Disposition: HOME, SELF-CARE Condition: STABLE Referrals: MANI ZENG (PCP) Patient Instructions: F[place] Catheter Care, Adult Additional Instructions: Follow-up with your urologist on Sunday as scheduled. Problem Qualifiers RODGER DIANE MD Feb 13, 2018 12:25
== END 2018-02-13 12:51 | disposition home or self-care (01) ==
LOC: ER 11:47
DX: Z46.6 Encounter for fitting and adjustment of urinary device (principal); R33.9 Retention of urine, unspecified; G89.29 Other chronic pain; Z96.643 Presence of artificial hip joint, bilateral; Z88.2 Allergy status to sulfonamides; Z88.8 Allergy status to other drugs, medicaments and biological substances
CPT/HCPCS: 99284

== ENCOUNTER 2018-02-15 18:08 | Emergency (ER) | payer BC, MEDICAID ==
[~2018-02-15] VITALS: Ht 195.6 cm; Wt 72.6 kg
[2018-02-15 18:49] LABS: BILIRUBIN,URINE NEGATIVE (NEG); CLARITY,URINE CLEAR; COLOR,URINE YELLOW; NITRITE,URINE NEGATIVE (NEG); PH,URINE 5.5; PROTEIN,URINE NEGATIVE (NEG-TRACE); UROBILINOGEN,URINE 0.2 mg/dL (0.2 mg/dL)
[2018-02-15 19:07] LABS: BACTERIA,URINE 0 /HPF (0-FEW); RBC,URINE 0 /HPF (0-2); YEAST,URINE PRESENT /HPF
[2018-02-15] MEDS ORDERED: FLUC150T PO (19:12)
--- NOTE | 2018-02-15 19:12 | PHYS DOC ---
Past Medical History Past Medical History: No Pertinent History Additional Past Medical Histor: mesothelioma,chronic back pain,neuropathy, infecion in Spine Urine ret. Past Surgical History: No Surgical History Additional Past Surgical Histo: HIP REPLACEMENT x 2,Spine biopsy Alcohol Use: Occasionally Drug Use: None Adult General Chief Complaint Chief Complaint: URINE CATHETER PROBLEM [facility] HPI Patient is a 63 year old [f__sex] who presents with [] Review of Systems Review of Systems Constitutional: Denies fever or chills [] Eyes: Denies change in visual acuity, redness, or eye pain [] HENT: Denies nasal congestion or sore throat [] Respiratory: Denies cough or shortness of breath [] Cardiovascular: No additional information not addressed in HPI [] GI: Denies abdominal pain, nausea, vomiting, bloody stools or diarrhea [] : Denies dysuria or hematuria [] Musculoskeletal: Denies back pain or joint pain [] Integument: Denies rash or skin lesions [] Neurologic: Denies headache, focal weakness or sensory changes [] Endocrine: Denies polyuria or polydipsia [] All other systems were reviewed and found to be within normal limits, except as documented in this note. Allergies Allergies Allergies Coded Allergies Type Severity Reaction Last Updated Verified Sulfa (Sulfonamide Antibiotics) Allergy Intermediate rash 01/01/17 Yes cobalt Allergy Intermediate 01/03/18 Yes Physical Exam Physical Exam Constitutional: Well developed, well nourished, no acute distress, non-toxic appearance. [] HENT: Normocephalic, atraumatic, bilateral external ears normal, oropharynx moist, no oral exudates, nose normal. [] Eyes: PERRLA, EOMI, conjunctiva normal, no discharge. [] Neck: Normal range of motion, no tenderness, supple, no stridor. [] Cardiovascular:Heart rate regular rhythm, no murmur [] Lungs & Thorax: Bilateral breath sounds clear to auscultation [] Abdomen: Bowel sounds normal, soft, no tenderness, no masses, no pulsatile masses. [] Skin: Warm, dry, no erythema, no rash. [] Back: No tenderness, no CVA tenderness. [] Extremities: No tenderness, no cyanosis, no clubbing, ROM intact, no edema. [] Neurologic: Alert and oriented X 3, normal motor function, normal sensory function, no focal deficits noted. [] Psychologic: Affect normal, judgement normal, mood normal. [] Current Patient Data Vital Signs Vital Signs Date Time Temp Pulse Resp B/P (MAP) Pulse Ox O2 Delivery O2 Flow Rate FiO2 02/15/18 18:32 98.2 105 18 153/72 (99) 97 Room Air 98.2 Lab Values Laboratory Tests Test 02/15/18 18:40 Urine Collection Type Unknown Urine Color Yellow Urine Clarity Clear Urine pH 5.5 Urine Specific [place] <=1.005 Urine Protein Negative mg/dL (NEG-TRACE) Urine Glucose (UA) Negative mg/dL (NEG) Urine Ketones (Stick) Negative mg/dL (NEG) Urine Blood Trace (NEG) Urine Nitrite Negative (NEG) Urine Bilirubin Negative (NEG) Urine Urobilinogen Dipstick 0.2 mg/dL (0.2 mg/dL) Urine Leukocyte Esterase Moderate (NEG) Urine RBC 0 /HPF (0-2) Urine WBC 11-20 /HPF (0-4) Urine Bacteria 0 /HPF (0-FEW) Urine Mucus Slight /LPF Urine Yeast Present /HPF EKG EKG [] Radiology/Procedures Radiology/Procedures [] Course & Med Decision Making Course & Med Decision Making Pertinent Labs and Imaging studies reviewed. (See chart for details) [] Dragon Disclaimer Dragon Disclaimer This electronic medical record was generated, in whole or in part, using a voice recognition dictation system. Departure Departure Impression: Primary Impression: Yeast cystitis Additional Impression: Encounter for Fulton catheter removal Disposition: 01 HOME, SELF-CARE Condition: STABLE Referrals: MANI ZENG (PCP) Patient Instructions: Reyna Infection, Adult Scripts Fluconazole (DIFLUCAN) 150 Mg Tablet 1 TAB PO ONCE, #2 TAB 0 Refills Take initial dose now and then repeat dose in 1 week Prov: AIDAN FRANCOIS DO 02/15/18 Problem Qualifiers AIDAN FRANCOIS DO Feb 15, 2018 19:12
== END 2018-02-15 19:19 | disposition home or self-care (01) ==
LOC: ER 18:08
DX: Z46.6 Encounter for fitting and adjustment of urinary device (principal); B37.41 Candidal cystitis and urethritis; G89.29 Other chronic pain; Z88.2 Allergy status to sulfonamides; Z88.8 Allergy status to other drugs, medicaments and biological substances
CPT/HCPCS: 81001; 87086; 99283

== ENCOUNTER → 2018-03-15 | Outpatient (CLI) | payer BC, MEDICAID ==
[2018-02-25 15:00] VITALS: BP 122/78
[~2018-03-15] MED LIST changes: +BUPIVACAINE MPF 0.25% 10 ML VIAL. ONE; +FLUC150T PO; -HYDR-2766 PO; +HYDR-2769 PO; +IOHEXOL 180 MG/ML 10 ML VIAL. ONE; -OXYC-323 PO; -OXYC-327 PO; +OXYC1TAB15 PO; +OXYC1TAB19 PO; +methylPREDNISolone ACETATE 40 MG/ML VIAL. ONE; +methylPREDNISolone ACETATE 80 MG/ML VIAL. ONE
--- NOTE | 2018-03-15 09:49 | PAIN ---
DATE OF SERVICE: 03/15/2018 DIAGNOSES: Lumbar spinal stenosis with degenerative disk disease, lumbar and lumbosacral spondylosis. HISTORY OF PRESENT ILLNESS: The patient is a 63-year-old male who returns for followup status post bilateral facet joint injections, most recently on 01/01/2018. The patient did very well with this with near 100% improvement for about 3 months. The patient reports in the last 2-3 weeks, pain is now returning in the low back bilaterally, somewhat worse on the right than the left, but present bilaterally, mostly with standing, walking, changing positions, bending, flexing and extension of the lumbar spine especially. The patient reports it is aching and sharp at times, occasional numbness and tingling in the legs, but mostly in the low back. The patient reports it is an 8 on a scale of 10 at its worst, 6 on average, 4 at its least and is a 6 today. The patient reports no new motor or sensory deficits. No new bowel or bladder incontinence or other complaints. The patient reports it does not awaken him from sleep at night, much better with lying or sitting down. PHYSICAL EXAMINATION: VITAL SIGNS: The patient's blood pressure is 150/76, pulse 76, respirations 18, temperature 97.8 degrees Fahrenheit, height is 6 feet 5 inches, weight is 166 pounds. GENERAL: The patient is awake, alert, oriented, appropriate, very pleasant demeanor. HEENT: Exam shows normocephalic, atraumatic. Extraocular movements intact and symmetrical. Oral cavity: Mucous membranes moist and pink. Dentition is intact. NECK: Shows anterior throat supple without palpable lymphadenopathy noted. Swallow reflex is symmetrical. CHEST: Shows normal with inspection. Breath sounds clear to auscultation bilaterally. HEART: Shows S1, S2 clear. No murmurs auscultated. ABDOMEN: Soft, nontender, nondistended. No palpable organomegaly is noted. No rebound or guarding demonstrated. BACK: Shows spine grossly in the midline, slight exaggeration of thoracic kyphosis and flattening of lumbar lordotic curvature. Lumbar paraspinous muscle shows symmetrical on inspection. On palpation shows some moderate tenderness, but only diffusely with palpation in the lower lumbar distribution. No tenderness over the spinous processes, sacrum or sacroiliac regions. The patient has good rotational motion with some minor tenderness, more to the right greater than 10 degrees with right lateral rotation, but is less so on the left. Extension, however, is significantly tender bilaterally, again worse on the right than the left, but present in the low back bilateral with extension and axial loading of the lumbar spine. Forward flexion at 45 degrees decreases the pain. EXTREMITIES: The patient's lower extremities show deep tendon reflexes 1+ in the patellar and tendo calcaneus tendons. Motor exam is approximately 4 on a scale of 5 with left dorsiflexion and extension, is 5/5 on the right, but intact. Peripheral pulses are 1+ posterior tibia. No peripheral edema is noted bilaterally. Options were discussed with the patient. The patient's old chart was reviewed as is his current medication regimen updated. Current review of systems is updated today as well. We will proceed with bilateral L4-L5 and L5-S1 facet joint injections today with fluoroscopic guidance. Risks were again discussed including, but not limited to bleeding, infection, possibility of epidural hematoma, subsequent neurological compromise, dural puncture, headaches, spinal cord and/or nerve damage, side effects of steroid medication and poor results regarding pain control. The patient understands and wished to proceed. The patient will return to the clinic in approximately 2 weeks for followup, was counseled on return appointment, activity level and side effects to be aware of. DIAGNOSIS: Lumbar and lumbosacral spondylosis with lumbar degenerative disk disease. PROCEDURE: Bilateral L4-L5 and L5-S1 facet joint injection using C-arm fluoroscopic guidance under sterile prep and drape using local anesthetic. MEDICATION INJECTED: A total of 4 mL of 0.25% bupivacaine, 120 mg Depo-Medrol and 2 mL total of Isovue for contrast. CONDITION AT DISCHARGE: Stable. The patient tolerated the procedure well, had no complications. JUSTIN KLEIN MD DR: JOLEEN/[place] JOB#: [id number] / [id number]
== END | disposition home or self-care (01) ==
LOC: PNCL 07:28
PROVIDERS: ATTEND Anesthesiology
DX: M47.817 Spondylosis without myelopathy or radiculopathy, lumbosacral region (principal); M48.061 Spinal stenosis, lumbar region without neurogenic claudication; M51.36 Other intervertebral disc degeneration, lumbar region; Z88.2 Allergy status to sulfonamides; Z88.8 Allergy status to other drugs, medicaments and biological substances
CPT/HCPCS: 64493; 64494; J1030; J1040; J3490; Q9965

== ENCOUNTER 2018-04-19 13:34 | Inpatient (IN) | payer OTHER, BC, MEDICAID ==
[~2018-04-19] VITALS: Ht 195.6 cm; Wt 75.5 kg
[~2018-04-19 13:34] MED LIST changes: -BUPIVACAINE MPF 0.25% 10 ML VIAL. ONE; -IOHEXOL 180 MG/ML 10 ML VIAL. ONE; -methylPREDNISolone ACETATE 40 MG/ML VIAL. ONE; -methylPREDNISolone ACETATE 80 MG/ML VIAL. ONE
--- NOTE | 2018-04-19 14:34 | RAD ---
Two-view study left hip and AP view of the pelvis Clinical indications: Slipped on ice with hip dislocation FINDINGS: There is an anterior lateral dislocation of the left femoral head prosthesis out of the acetabular prosthesis. No acute fracture or lytic process is seen. Total right hip arthroplasty is evident as well which is well aligned. IMPRESSION: Dislocation of left hip prosthesis. Electronically signed by: Kit Park MD (04/19/2018 2:30 PM) [email or web address]
[2018-04-19 14:35] LABS: BASO % 1 % (0-3); EOS # 0.1 x10^3/uL (0.0-0.7); EOS % 2 % (0-3); HEMATOCRIT 39.3 % (39.0-53.0); HEMOGLOBIN 13.6 g/dL (13.0-17.5); LYMPH # 0.9 x10^3/uL (1.0-4.8); LYMPH % 14 % (24-48); MEAN CORPUSCULAR HEMOGLOBIN 37 pg (25-35); MEAN CORPUSCULAR HGB CONC 35 g/dL (31-37); MEAN CORPUSCULAR VOLUME 108 fL (79-100); MONO # 0.4 x10^3/uL (0.0-1.1); MONO % 6 % (0-9); NEUT # 5.3 x10^3uL (1.8-7.7); NEUT % 79 % (31-73); PLATELET COUNT 250 x10^3/uL (140-400); RED BLOOD COUNT 3.66 x10^6/uL (4.30-5.70); RED CELL DISTRIBUTION WIDTH 14.7 % (11.5-14.5); WHITE BLOOD COUNT 6.8 x10^3/uL (4.0-11.0)
[2018-04-19 14:44] LABS: CALCIUM 9.5 mg/dL (8.5-10.1); CREATININE 0.8 mg/dL (0.7-1.3); POTASSIUM 4.1 mmol/L (3.5-5.1)
[2018-04-19 14:46] LABS: PROTHROMBIN TIME PATIENT 13.4 SEC (11.7-14.0)
[2018-04-19 14:52] LABS: ALBUMIN 3.1 g/dL (3.4-5.0); ALBUMIN/GLOBULIN RATIO 0.7 (1.0-1.7); TOTAL BILIRUBIN 0.4 mg/dL (0.2-1.0); TOTAL PROTEIN 7.3 g/dL (6.4-8.2)
--- NOTE | 2018-04-19 15:33 | PHYS DOC ---
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 (NIRMAL VELASQUEZ APRN) Past Surgical History: Other Additional Past Surgical Histo: HIP REPLACEMENT x 2,Spine biopsy (NIRMAL VELASQUEZ APRN) Additional Information: 1 PPD Alcohol Use: Occasionally Drug Use: None (NIRMAL VELASQUEZ APRN) Adult General Chief Complaint Chief Complaint: MECHANICAL FALL HPI HPI Patient is a 63 year old male who presents with a left hip dislocation. Patient states he was moving a bale of hay approximately 1500 pounds from the back of his truck when he slipped and fell. Patient denies any loss of consciousness. Denies hitting his head on the ground. He states he has history of left hip replacement. (NIRMAL VELASQUEZ APRN) Review of Systems Review of Systems Constitutional: Denies fever or chills [] Eyes: Denies change in visual acuity, redness, or eye pain [] HENT: Denies nasal congestion or sore throat [] Respiratory: Denies cough or shortness of breath [] Cardiovascular: No additional information not addressed in HPI [] GI: Denies abdominal pain, nausea, vomiting, bloody stools or diarrhea [] : Denies dysuria or hematuria [] Musculoskeletal: Reports left hip dislocation Integument: Denies rash or skin lesions [] Neurologic: Denies headache, focal weakness or sensory changes [] All other systems were reviewed and found to be within normal limits, except as documented in this note. (NIRMAL VELASQUEZ APRN) Current Medications Current Medications Current Medications Medications (Trade) Dose Ordered Sig/Shirlene Start Time Stop Time Status Last Admin Dose Admin Hydromorphone HCl (Dilaudid) 2 mg 1X ONCE 04/19/18 15:45 04/19/18 15:46 DC 04/19/18 16:07 2 MG Propofol 20 ml @ 0 mls/hr 1X ONCE 04/19/18 16:45 04/19/18 16:46 DC 04/19/18 17:25 130 MLS/HR (RONAK DELA CRUZ MD) Allergies Allergies Allergies Coded Allergies Type Severity Reaction Last Updated Verified Sulfa (Sulfonamide Antibiotics) Allergy Intermediate rash 01/01/17 Yes cobalt Allergy Intermediate 01/03/18 Yes (RONAK DELA CRUZ MD) Physical Exam Physical Exam Constitutional: Well developed, well nourished, no acute distress, non-toxic appearance. [] HENT: Normocephalic, atraumatic, bilateral external ears normal, oropharynx moist, no oral exudates, nose normal. [] Eyes: PERRLA, EOMI, conjunctiva normal, no discharge. [] Neck: Normal range of motion, no tenderness, supple, no stridor. [] Cardiovascular:Heart rate regular rhythm, no murmur [] Lungs & Thorax: Bilateral breath sounds clear to auscultation [] Abdomen: Bowel sounds normal, soft, no tenderness, no masses, no pulsatile masses. [] Skin: Warm, dry, no erythema, no rash. [] Back: No tenderness, no CVA tenderness. [] Extremities: Left hip appears obviously deformed. Limited range of motion to the left lower extremity. Full range of motion to the left toes. +2 left pedal pulse. Cap refill less than 2 seconds the left lower extremity. Sensation intact to the left lower extremity. Neurologic: Alert and oriented X 3, normal motor function, normal sensory function, no focal deficits noted. [] Psychologic: Affect normal, judgement normal, mood normal. [] (NIRMAL VELASQUEZ APRN) Current Patient Data Vital Signs Vital Signs Date Time Temp Pulse Resp B/P (MAP) Pulse Ox O2 Delivery O2 Flow Rate FiO2 04/19/18 16:53 98 18 130/73 2.0 95 14 5.0 2.0 04/19/18 16:37 99 Room Air 04/19/18 13:34 97.9 97.9 (RONAK DELA CRUZ MD) Lab Values Laboratory Tests Test 04/19/18 14:23 White Blood Count 6.8 x10^3/uL (4.0-11.0) Red Blood Count 3.66 x10^6/uL (4.30-5.70) L Hemoglobin 13.6 g/dL (13.0-17.5) Hematocrit 39.3 % (39.0-53.0) Mean Corpuscular Volume 108 fL (79-100) H Mean Corpuscular Hemoglobin 37 pg (25-35) H Mean Corpuscular Hemoglobin Concent 35 g/dL (31-37) Red Cell Distribution Width 14.7 % (11.5-14.5) H Platelet Count 250 x10^3/uL (140-400) Neutrophils (%) (Auto) 79 % (31-73) H Lymphocytes (%) (Auto) 14 % (24-48) L Monocytes (%) (Auto) 6 % (0-9) Eosinophils (%) (Auto) 2 % (0-3) Basophils (%) (Auto) 1 % (0-3) Neutrophils # (Auto) 5.3 x10^3uL (1.8-7.7) Lymphocytes # (Auto) 0.9 x10^3/uL (1.0-4.8) L Monocytes # (Auto) 0.4 x10^3/uL (0.0-1.1) Eosinophils # (Auto) 0.1 x10^3/uL (0.0-0.7) Basophils # (Auto) 0.0 x10^3/uL (0.0-0.2) Prothrombin Time 13.4 SEC (11.7-14.0) Prothrombin Time INR 1.1 (0.8-1.1) PTT 30 SEC (24-38) Sodium Level 135 mmol/L (136-145) L Potassium Level 4.1 mmol/L (3.5-5.1) Chloride Level 100 mmol/L (98-107) Carbon Dioxide Level 26 mmol/L (21-32) Anion Gap 9 (6-14) Blood Urea Nitrogen 9 mg/dL (8-26) Creatinine 0.8 mg/dL (0.7-1.3) Estimated GFR (Cockcroft-Gault) 97.0 BUN/Creatinine Ratio 11 (6-20) Glucose Level 104 mg/dL (70-99) H Calcium Level 9.5 mg/dL (8.5-10.1) Total Bilirubin 0.4 mg/dL (0.2-1.0) Aspartate Amino Transferase (AST) 15 U/L (15-37) Alanine Aminotransferase (ALT) 16 U/L (16-63) Alkaline Phosphatase 92 U/L (46-116) Total Protein 7.3 g/dL (6.4-8.2) Albumin 3.1 g/dL (3.4-5.0) L Albumin/Globulin Ratio 0.7 (1.0-1.7) L Ethyl Alcohol Level < 10 mg/dL (0-10) Laboratory Tests 04/19/18 14:23 Laboratory Tests 04/19/18 14:23 (RONAK DELA CRUZ MD) EKG EKG [] (NIRMAL VELASQUEZ APRN) Radiology/Procedures Radiology/Procedures []PROCEDURE: HIP LEFT 2V WITH PELVIS Two-view study left hip and AP view of the pelvis Clinical indications: Slipped on ice with hip dislocation FINDINGS: There is an anterior lateral dislocation of the left femoral head prosthesis out of the acetabular prosthesis. No acute fracture or lytic process is seen. Total right hip arthroplasty is evident as well which is well aligned. IMPRESSION: Dislocation of left hip prosthesis. Electronically signed by: Johnny Park MD (04/19/2018 2:30 PM) [place] [id number] DICTATED and SIGNED BY: JOHNNY PARK MD DATE: 04/19/181428 (NIRMAL VELASQUEZ APRN) Course & Med Decision Making Course & Med Decision Making Pertinent Labs and Imaging studies reviewed. (See chart for details) This is a 63-year-old male patient presented to the ED today with left hip dislocation. Patient slipped and fell today. No loss of consciousness. Left hip x-rays interpreted by radiologist were noted for dislocation of left hip prosthesis. Dr. Dela Cruz took over care. (NIRMAL VELASQUEZ APRN) Dragon Disclaimer Dragon Disclaimer This electronic medical record was generated, in whole or in part, using a voice recognition dictation system. (NIRMAL VELASQUEZ APRN) Departure Departure Impression: Primary Impression: Dislocation of left hip Additional Impression: Fall from standing Referrals: MANI ZENG (PCP) Procedural Sedation Proc Sed Indication: []Left hip reduction Consent: I have discussed with the patient and/or the patient telesales representative the indication, alternatives, and the possible risks and /or complications of the planned procedure and the anesthesia methods. The patient and/or patient telesales representative appear to understand and agree to proceed. Pre-Sedation Documentation and Exam: [] Patient has mild numbness in the left lower extremity but a palpable pulse. Normal motor sensory of the left foot. Otherwise unremarkable physical exam. Patient has missing teeth in the lower mouth and false teeth in the upper mouth. Airway Assessment: normal. MALLAMPATI II Prior History of Anesthesia Complications: none. ASA Classification: [] ASA II Sedation/ Anesthesia Plan: []PROPOFOL Medications Used: see nursing notes. Monitoring and Safety: The patient was placed on a cardiac nurse specialist and vital signs, pulse oximetry and level of consciousness were continuously evaluated throughout the procedure. The patient was closely monitored until recovery from the medications was complete and the patient had returned to baseline status. Respiratory therapy was on standby at all times during the procedure. Post-Sedation Vital Signs: SEE NURSING NOTES Post-Sedation Exam: ALERT AND FOLLOWS COMMANDS, NO CHANGES IN MOTOR OR SENSORY FUNCTION Complications: none. (RONAK DELA CRUZ MD) Vital Signs Vital Signs Date Time Temp Pulse Resp B/P (MAP) Pulse Ox O2 Delivery O2 Flow Rate FiO2 04/19/18 16:53 98 18 130/73 2.0 95 14 5.0 2.0 04/19/18 16:37 99 Room Air 04/19/18 13:34 97.9 97.9 (RONAK DELA CRUZ MD) Joint Reduction Procedure Joint Indication: Joint dislocation Consent: Consent was obtained. Procedure: The pre-reduction exam showed distal perfusion and neurologic function to be normal.. The patient was placed in the appropriate position. Anesthesia/pain control was procedural sedation. Reduction of the left hip was performed by traction countertraction method. Post reduction films were obtained and revealed unreduced left hip. A post-reduction exam revealed distal perfusion and neurologic function to be same as before procedure. I spoke with Dr. maurer by phone. Unfortunately I am unable to reduce the patient's hip. He asked that I admit the patient to the hospitalist and he will attempt a reduction in the morning. The patient tolerated the procedure well. Complications: none. (ROANK DELA CRUZ MD) Problem Qualifiers Primary Impression: Dislocation of left hip Encounter type: initial encounter Qualified Codes: S73.005A - Unspecified dislocation of left hip, initial encounter Additional Impression: Fall from standing Encounter type: initial encounter Qualified Codes: W19.XXXA - Unspecified fall, initial encounter EVANIRMAL MANZANO Apr 19, 2018 15:33 RONAK DELA CRUZ MD Apr 19, 2018 17:56
[2018-04-19] MEDS ORDERED: HYDROmorphone 2 MG/ML VIAL IV ONE (15:45)
[2018-04-19] MEDS ORDERED: PROPOFOL 20 ML IV ONE (16:45)
[2018-04-19 16:53] VITALS: BP 130/73
--- NOTE | 2018-04-19 18:23 | RAD ---
Left hip radiograph 04/19/2018 5:41 PM INDICATION: Postreduction COMPARISON: Left hip radiograph April 19, 2018 at 1:52 PM TECHNIQUE: 4 views of the left hip are provided including an AP view the pelvis. FINDINGS: Right total hip arthroplasty is identified. Superior and inferior pubic rami are intact. Sacroiliac joints are well aligned. Sacral kings appear intact. Phleboliths are identified within the pelvis. There is persistent anterior superior dislocation of the left total hip arthroplasty. IMPRESSION: There is persistent anterior superior dislocation of the left total hip arthroplasty. Electronically signed by: Myrna Fritz MD (04/19/2018 6:18 PM) [facility]
[2018-04-19] MEDS ORDERED: fentaNYL PF VIAL 100 MCG/2 ML VIAL IV PRN (19:45)
[2018-04-19] MEDS ORDERED: ONDANSETRON PF 4 MG/2 ML VIAL. IV PRN (21:00)
[2018-04-19 22:10] VITALS: BP 121/78
--- NOTE | 2018-04-19 22:25 | NUR ---
Received report from Luci NAJERA in the Emergency Department. Patient arrived to unit at 2210 via bed and by himself. Patient rates pain at 9/10. Patient AxOx4. Patient has cell phone, jacket and clothes in his possession. Patient orientated to unit, call light placed within reach, bed placed in lowest position and locked. Will continue to monitor patient.
[2018-04-19] MEDS: fentaNYL PF VIAL 100 MCG/2 ML VIAL IV PRN (23:26)
[2018-04-20] MEDS: fentaNYL PF VIAL 100 MCG/2 ML VIAL IV PRN ×2 (02:28→05:47)
[2018-04-20 03:15] VITALS: BP 120/74
[2018-04-20 07:00] VITALS: BP 126/69
[2018-04-20] MEDS ORDERED: PROPOFOL 20 ML IV ONE (07:35)
[2018-04-20] MEDS ORDERED: LIDOCAINE 2% PF Vial for OR 5 ML VIAL. ONE (07:35)
[2018-04-20] MEDS ORDERED: IV RINGERS,LACTATED 1000ML 1,000 ML IV SCH (07:53)
[2018-04-20] MEDS ORDERED: PROCHLORPERAZINE 10 MG/2 ML VIAL. IV PRN (08:00)
[2018-04-20] MEDS ORDERED: fentaNYL PF VIAL 100 MCG/2 ML VIAL IV PRN ×2 (08:00)
[2018-04-20] MEDS ORDERED: LIDOCAINE 1% PF 2 ML VIAL. ID PRN (08:00)
[2018-04-20] MEDS ORDERED: HYDROmorphone 2 MG/ML VIAL IV PRN (08:00)
[2018-04-20] MEDS ORDERED: MORPHINE SULFATE 4 MG/ML VIAL. IV PRN (08:00)
[2018-04-20] MEDS ORDERED: ONDANSETRON PF 4 MG/2 ML VIAL. IV PRN (08:00)
--- NOTE | 2018-04-20 08:17 | PDOC2 ---
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 He tells me this is his first dislocation. He had no complaints with his hip prior to this. He is actually more concerned with urinary retention that started around the time he was receiving IV antibiotics through PICC line for discitis. This problem has gotten worse recently. His left hip hurts with any movement. He was unable to ambulate. The pain radiates down his thigh little ways but does not go into his foot. Denies any abnormal sensation in his left foot. Current Problem List Problem List Problems Medical Problems: (1) Dislocation of left hip Status: Acute (2) Fall from standing Status: Acute Current Medications Current Medications Current Medications Hydromorphone HCl (Dilaudid) 2 mg 1X ONCE IV Last administered on 04/19/18at 16 :07; Start 04/19/18 at 15:45; Stop 04/19/18 at 15:46; Status DC Propofol 20 ml @ 0 mls/hr 1X ONCE IV Last administered on 04/19/18at 17:25; Start 04/19/18 at 16:45; Stop 04/19/18 at 16:46; Status DC Fentanyl Citrate (Fentanyl 2ml Vial) 50 mcg Q2HR PRN IV PAIN Last administered on 04/19/18at 20:02; Start 04/19/18 at 19:45; Stop 04/19/18 at 20:04; Status DC Fentanyl Citrate (Fentanyl 2ml Vial) 50 mcg PRN Q2HR PRN IV PAIN Last administered on 04/20/18at 05:47; Start 04/19/18 at 20:15; Stop 04/20/18 at 05:47 ; Status DC Ondansetron HCl (Zofran) 4 mg PRN Q8HRS PRN IV NAUSEA/VOMITING; Start 04/19/18 at 21:00; Stop 04/20/18 at 20:59 Propofol 20 ml @ As Directed STK-MED ONCE IV ; Start 04/20/18 at 07:35; Stop at 07:38; Status DC Lidocaine HCl (Lidocaine Pf 2% Vial) 5 ml STK-MED ONCE .ROUTE ; Start 04/20/18 at 07:35; Stop 04/20/18 at 07:38; Status DC Ondansetron HCl (Zofran) 4 mg PRN Q6HRS PRN IV NAUSEA/VOMITING; Start 04/20/18 at 08:00; Stop 04/21/18 at 07:59 Fentanyl Citrate (Fentanyl 2ml Vial) 25 mcg PRN Q5MIN PRN IV MILD PAIN; Start 04/20/18 at 08:00; Stop 04/21/18 at 07:59 Fentanyl Citrate (Fentanyl 2ml Vial) 50 mcg PRN Q5MIN PRN IV MODERATE TO SEVERE PAIN; Start 04/20/18 at 08:00; Stop 04/21/18 at 07:59 Morphine Sulfate (Morphine Sulfate) 1 mg PRN Q10MIN PRN IV SEVERE PAIN; Start 04/20/18 at 08:00; Stop 04/21/18 at 07:59 Ringer's Solution 1,000 ml @ 30 mls/hr Q24H IV ; Start 04/20/18 at 07:53; Stop 04/20/18 at 19:52 Lidocaine HCl (Xylocaine-Mpf 1% 2ml Vial) 2 ml 1X PRN PRN ID IV START; Start at 08:00; Stop 04/21/18 at 07:59 Hydromorphone HCl (Dilaudid) 0.5 mg PRN Q10MIN PRN IV SEV PAIN, Second choice; Start 04/20/18 at 08:00; Stop 04/21/18 at 07:59 Prochlorperazine Edisylate (Compazine) 5 mg PACU PRN PRN IV NAUSEA, MRX1; Start 04/20/18 at 08:00; Stop 04/21/18 at 07:59 Active Scripts Active Flomax (Tamsulosin Hcl) 0.4 Mg Cap.er.24h 1 Cap PO DAILY Ventolin Hfa Inhaler (Albuterol Sulfate) 18 Gm Hfa.aer.ad 2 Puff INH Q4HRS PRN Reported Vitamin B-12 (Cyanocobalamin (Vitamin B-12)) 1,000 Mcg Tablet 1,000 Mcg IM WEEKLY Cyclobenzaprine Hcl 10 Mg Tablet 1 Tab PO PRN TID PRN Trazodone Hcl 50 Mg Tablet 50 Mg PO HS Advair 100-50 Diskus (Fluticasone/Salmeterol) 1 Each Disk.w.dev 1 Puff IH BID LAST DOSE GIVEN: DATE:02-03-15 TIME:9:00 a.m. NEXT DOSE DUE: DATE:02-03-15 TIME:9:00 p.m. Allergies Allergies: Coded Allergies: Sulfa (Sulfonamide Antibiotics) (Verified Allergy, Intermediate, rash, 01/01/17) cobalt (Verified Allergy, Intermediate, 01/03/18) COBALT METAL USED IN ORTHOPEDIC EQUIPMENT REACTED WITH SKIN TESTING ROS General: No: Chills, Night Sweats, Fatigue, Malaise, Appetite, Other PSYCHOLOGICAL ROS: No: Anxiety, Behavioral Disorder, Concentration difficultie , Decreased libido, Depression, Disorientation, Hallucinations, Hostility, Irritablity, Memory difficulties, Mood Swings, Obsessive thoughts, Physical abuse, Sexual abuse, Sleep disturbances, Suicidal ideation, Other Eyes: No Blurry vision, No Decreased vision, No Double vision, No Dry eyes, No Excessive tearing, No Eye Pain, No Itchy Eyes, No Loss of vision, No Photophobia , No Scotomata, No Uses contacts, No Uses glasses, No Other HEENT: No: Heacaches, Visual Changes, Hearing change, Nasal congestion, Nasal discharge, Oral lesions, Sinus pain, Sore Throat, Epistaxis, Sneezing, Snoring, Tinnitus, Vertigo, Vocal changes, Other ALLERGY AND IMMUNOLOGY: No: Hives, Insect Bite Sensitivity, Itchy/Watery Eyes, Nasal Congestion, Post Nasal Drip, Seasonal Allergies, Other Hematological and Lymphatic: No: Bleeding Problems, Blood Clots, Blood Transfusions, Brusing, Night Sweats, Pallor, Swollen Lymph Nodes, Other Respiratory: No: Cough, Hemoptysis, Orthopnea, Pleuritic Pain, Shortness of breath, SOB with excertion, Sputum Changes, Stridor, Tachypnea, Wheezing, Other Cardiovascular: No Chest Pain, No Palpitations, No Orthopnea, No Paroxysmal Noc. Dyspnea, No Edema, No Lt Headedness, No Other Gastrointestinal: No Nausea, No Vomiting, No Abdominal Pain, No Diarrhea, No Constipation, No Melena, No Hematochezia, No Other Genitourinary: YES Retention Musculoskeletal: Yes Joint Pain, Yes Joint Stiffness Neurological: No Behavorial Changes, No Bowel/Bladder ControlChng, No Confusion , No Dizziness, No Gait Disturbance, No Headaches, No Impaired Coord/balance, No Memory Loss, No Numbness/Tingling, No Seizures, No Speech Problems, No Tremors, No Visual Changes, No Weakness, No Other Skin: No Dry Skin, No Eczema, No Hair Changes, No Lumps, No Mole Changes, No Mottling, No Nail Changes, No Pruritus, No Rash, No Skin Lesion Changes, No Other, No Acne Physical Exam General: Alert, Oriented X3, No acute distress HEENT: Atraumatic, EOMI Lungs: Other (resp unloabored, symmetric chest rise) Heart: Regular rate, No murmurs Abdomen: Soft, No tenderness Extremities: No edema, Normal pulses Skin: No rashes Neuro: Normal speech, Strength at 5/5 X4 ext, Sensation intact Psych/Mental Status: Mental status NL, Mood NL MUSCULOSKELETAL: Other (fullness and tenderness around left hip, wiggles toes, toes warm) Vitals VITALS Vital Signs Date Time Temp Pulse Resp B/P (MAP) Pulse Ox O2 Delivery O2 Flow Rate FiO2 04/20/18 05:47 92 Room Air 04/20/18 03:15 98.3 90 18 120/74 (89) 98.3 04/19/18 16:53 2.0 5.0 2.0 Labs Labs Laboratory Tests Test 04/19/18 14:23 White Blood Count 6.8 x10^3/uL (4.0-11.0) Red Blood Count 3.66 x10^6/uL (4.30-5.70) Hemoglobin 13.6 g/dL (13.0-17.5) Hematocrit 39.3 % (39.0-53.0) Mean Corpuscular Volume 108 fL (79-100) Mean Corpuscular Hemoglobin 37 pg (25-35) Mean Corpuscular Hemoglobin Concent 35 g/dL (31-37) Red Cell Distribution Width 14.7 % (11.5-14.5) Platelet Count 250 x10^3/uL (140-400) Neutrophils (%) (Auto) 79 % (31-73) Lymphocytes (%) (Auto) 14 % (24-48) Monocytes (%) (Auto) 6 % (0-9) Eosinophils (%) (Auto) 2 % (0-3) Basophils (%) (Auto) 1 % (0-3) Neutrophils # (Auto) 5.3 x10^3uL (1.8-7.7) Lymphocytes # (Auto) 0.9 x10^3/uL (1.0-4.8) Monocytes # (Auto) 0.4 x10^3/uL (0.0-1.1) Eosinophils # (Auto) 0.1 x10^3/uL (0.0-0.7) Basophils # (Auto) 0.0 x10^3/uL (0.0-0.2) Prothrombin Time 13.4 SEC (11.7-14.0) Prothromb Time International Ratio 1.1 (0.8-1.1) Activated Partial Thromboplast Time 30 SEC (24-38) Sodium Level 135 mmol/L (136-145) Potassium Level 4.1 mmol/L (3.5-5.1) Chloride Level 100 mmol/L (98-107) Carbon Dioxide Level 26 mmol/L (21-32) Anion Gap 9 (6-14) Blood Urea Nitrogen 9 mg/dL (8-26) Creatinine 0.8 mg/dL (0.7-1.3) Estimated GFR (Cockcroft-Gault) 97.0 BUN/Creatinine Ratio 11 (6-20) Glucose Level 104 mg/dL (70-99) Calcium Level 9.5 mg/dL (8.5-10.1) Total Bilirubin 0.4 mg/dL (0.2-1.0) Aspartate Amino Transf (AST/SGOT) 15 U/L (15-37) Alanine Aminotransferase (ALT/SGPT) 16 U/L (16-63) Alkaline Phosphatase 92 U/L (46-116) Total Protein 7.3 g/dL (6.4-8.2) Albumin 3.1 g/dL (3.4-5.0) Albumin/Globulin Ratio 0.7 (1.0-1.7) Ethyl Alcohol Level < 10 mg/dL (0-10) Laboratory Tests Test 04/19/18 14:23 White Blood Count 6.8 x10^3/uL (4.0-11.0) Red Blood Count 3.66 x10^6/uL (4.30-5.70) Hemoglobin 13.6 g/dL (13.0-17.5) Hematocrit 39.3 % (39.0-53.0) Mean Corpuscular Volume 108 fL (79-100) Mean Corpuscular Hemoglobin 37 pg (25-35) Mean Corpuscular Hemoglobin Concent 35 g/dL (31-37) Red Cell Distribution Width 14.7 % (11.5-14.5) Platelet Count 250 x10^3/uL (140-400) Neutrophils (%) (Auto) 79 % (31-73) Lymphocytes (%) (Auto) 14 % (24-48) Monocytes (%) (Auto) 6 % (0-9) Eosinophils (%) (Auto) 2 % (0-3) Basophils (%) (Auto) 1 % (0-3) Neutrophils # (Auto) 5.3 x10^3uL (1.8-7.7) Lymphocytes # (Auto) 0.9 x10^3/uL (1.0-4.8) Monocytes # (Auto) 0.4 x10^3/uL (0.0-1.1) Eosinophils # (Auto) 0.1 x10^3/uL (0.0-0.7) Basophils # (Auto) 0.0 x10^3/uL (0.0-0.2) Prothrombin Time 13.4 SEC (11.7-14.0) Prothromb Time International Ratio 1.1 (0.8-1.1) Activated Partial Thromboplast Time 30 SEC (24-38) Sodium Level 135 mmol/L (136-145) Potassium Level 4.1 mmol/L (3.5-5.1) Chloride Level 100 mmol/L (98-107) Carbon Dioxide Level 26 mmol/L (21-32) Anion Gap 9 (6-14) Blood Urea Nitrogen 9 mg/dL (8-26) Creatinine 0.8 mg/dL (0.7-1.3) Estimated GFR (Cockcroft-Gault) 97.0 BUN/Creatinine Ratio 11 (6-20) Glucose Level 104 mg/dL (70-99) Calcium Level 9.5 mg/dL (8.5-10.1) Total Bilirubin 0.4 mg/dL (0.2-1.0) Aspartate Amino Transf (AST/SGOT) 15 U/L (15-37) Alanine Aminotransferase (ALT/SGPT) 16 U/L (16-63) Alkaline Phosphatase 92 U/L (46-116) Total Protein 7.3 g/dL (6.4-8.2) Albumin 3.1 g/dL (3.4-5.0) Albumin/Globulin Ratio 0.7 (1.0-1.7) Ethyl Alcohol Level < 10 mg/dL (0-10) Images Images X-rays were interpreted by myself. He has an anterior dislocation of a left total hip arthroplasty. Assessment/Plan Assessment/Plan Left total hip anterior dislocation. This is been his first dislocation. I did discuss the risks, benefits, alternatives to closed reduction. We will plan on admission after this in PT and OT consult. I will also ask urology to see him for his urinary retention. GARRETT DYE II, MD Apr 20, 2018 08:17
[2018-04-20] MEDS ORDERED: PHENYLEPHRINE in 0.9% NACL PF 1 MG/10 ML SYRINGE. IV ONE (08:23)
[2018-04-20] MEDS ORDERED: fentaNYL PF VIAL 100 MCG/2 ML VIAL ONE (08:36)
[2018-04-20] MEDS ORDERED: DEXAMETHASONE SOD PHOS 20 MG/5 ML VIAL. ONE (08:36)
[2018-04-20] MEDS ORDERED: ONDANSETRON PF 4 MG/2 ML VIAL. ONE (08:36)
[2018-04-20] MEDS ORDERED: SEVOFLURANE UP TO 15 MINUTES. IH ONE (08:36)
--- NOTE | 2018-04-20 08:40 | PDOC1 ---
History and Physical Date of Admission Date of Admission DATE: 04/20/18 TIME: 08:35 Identification/Chief Complaint Chief Complaint hip pain Source Source: Chart review, Patient History of Present Illness History of Present Illness MR. Bustillo, is a very pleasant 63-year-old [facility] admit with acute left hip pain. s/p bilateral total hip arthroplasty, follows with Dr. Grady, taken to OR today for reduction, and now in the afternoon, pain is improved. he could not move the hip at all this AM without severe pain. he has ongoing problem of leg weakness and some distal leg numbness Past Medical History Cardiovascular: HTN Musculoskeletal: low back pain, Osteoarthritis Past Surgical History Past Surgical History: Total hip replacement Social History Smoke: No ALCOHOL: none Current Problem List Problem List Problems Medical Problems: (1) Dislocation of left hip Status: Acute (2) Fall from standing Status: Acute Current Medications Current Medications Current Medications Hydromorphone HCl (Dilaudid) 2 mg 1X ONCE IV Last administered on 04/19/18at 16 :07; Start 04/19/18 at 15:45; Stop 04/19/18 at 15:46; Status DC Propofol 20 ml @ 0 mls/hr 1X ONCE IV Last administered on 04/19/18at 17:25; Start 04/19/18 at 16:45; Stop 04/19/18 at 16:46; Status DC Fentanyl Citrate (Fentanyl 2ml Vial) 50 mcg Q2HR PRN IV PAIN Last administered on 04/19/18at 20:02; Start 04/19/18 at 19:45; Stop 04/19/18 at 20:04; Status DC Fentanyl Citrate (Fentanyl 2ml Vial) 50 mcg PRN Q2HR PRN IV PAIN Last administered on 04/20/18at 05:47; Start 04/19/18 at 20:15; Stop 04/20/18 at 05:47 ; Status DC Ondansetron HCl (Zofran) 4 mg PRN Q8HRS PRN IV NAUSEA/VOMITING; Start 04/19/18 at 21:00; Stop 04/20/18 at 20:59 Propofol 20 ml @ As Directed STK-MED ONCE IV ; Start 04/20/18 at 07:35; Stop at 07:38; Status DC Lidocaine HCl (Lidocaine Pf 2% Vial) 5 ml STK-MED ONCE .ROUTE ; Start 04/20/18 at 07:35; Stop 04/20/18 at 07:38; Status DC Ondansetron HCl (Zofran) 4 mg PRN Q6HRS PRN IV NAUSEA/VOMITING; Start 04/20/18 at 08:00; Stop 04/21/18 at 07:59 Fentanyl Citrate (Fentanyl 2ml Vial) 25 mcg PRN Q5MIN PRN IV MILD PAIN; Start 04/20/18 at 08:00; Stop 04/21/18 at 07:59 Fentanyl Citrate (Fentanyl 2ml Vial) 50 mcg PRN Q5MIN PRN IV MODERATE TO SEVERE PAIN; Start 04/20/18 at 08:00; Stop 04/21/18 at 07:59 Morphine Sulfate (Morphine Sulfate) 1 mg PRN Q10MIN PRN IV SEVERE PAIN; Start 04/20/18 at 08:00; Stop 04/21/18 at 07:59 Ringer's Solution 1,000 ml @ 30 mls/hr Q24H IV ; Start 04/20/18 at 07:53; Stop 04/20/18 at 19:52 Lidocaine HCl (Xylocaine-Mpf 1% 2ml Vial) 2 ml 1X PRN PRN ID IV START; Start at 08:00; Stop 04/21/18 at 07:59 Hydromorphone HCl (Dilaudid) 0.5 mg PRN Q10MIN PRN IV SEV PAIN, Second choice; Start 04/20/18 at 08:00; Stop 04/21/18 at 07:59 Prochlorperazine Edisylate (Compazine) 5 mg PACU PRN PRN IV NAUSEA, MRX1; Start 04/20/18 at 08:00; Stop 04/21/18 at 07:59 Phenylephrine HCl (PHENYLEPHRINE in 0.9% NACL PF) 1 mg STK-MED ONCE IV ; Start 04/20/18 at 08:23; Stop 04/20/18 at 08:25; Status DC Active Scripts Active Flomax (Tamsulosin Hcl) 0.4 Mg Cap.er.24h 1 Cap PO DAILY Ventolin Hfa Inhaler (Albuterol Sulfate) 18 Gm Hfa.aer.ad 2 Puff INH Q4HRS PRN Reported Vitamin B-12 (Cyanocobalamin (Vitamin B-12)) 1,000 Mcg Tablet 1,000 Mcg IM WEEKLY Cyclobenzaprine Hcl 10 Mg Tablet 1 Tab PO PRN TID PRN Trazodone Hcl 50 Mg Tablet 50 Mg PO HS Advair 100-50 Diskus (Fluticasone/Salmeterol) 1 Each Disk.w.dev 1 Puff IH BID LAST DOSE GIVEN: DATE:02-03-15 TIME:9:00 a.m. NEXT DOSE DUE: DATE:02-03-15 TIME:9:00 p.m. Allergies Allergies: Coded Allergies: Sulfa (Sulfonamide Antibiotics) (Verified Allergy, Intermediate, rash, 01/01/17) cobalt (Verified Allergy, Intermediate, 01/03/18) COBALT METAL USED IN ORTHOPEDIC EQUIPMENT REACTED WITH SKIN TESTING ROS General: No: Chills, Night Sweats, Fatigue, Malaise, Appetite, Other PSYCHOLOGICAL ROS: No: Anxiety, Behavioral Disorder, Concentration difficultie , Decreased libido, Depression, Disorientation, Hallucinations, Hostility, Irritablity, Memory difficulties, Mood Swings, Obsessive thoughts, Physical abuse, Sexual abuse, Sleep disturbances, Suicidal ideation, Other Eyes: No Blurry vision, No Decreased vision, No Double vision, No Dry eyes, No Excessive tearing, No Eye Pain, No Itchy Eyes, No Loss of vision, No Photophobia , No Scotomata, No Uses contacts, No Uses glasses, No Other HEENT: No: Heacaches, Visual Changes, Hearing change, Nasal congestion, Nasal discharge, Oral lesions, Sinus pain, Sore Throat, Epistaxis, Sneezing, Snoring, Tinnitus, Vertigo, Vocal changes, Other Respiratory: No: Cough, Hemoptysis, Orthopnea, Pleuritic Pain, Shortness of breath, SOB with excertion, Sputum Changes, Stridor, Tachypnea, Wheezing, Other Gastrointestinal: No Nausea, No Vomiting, No Abdominal Pain, No Diarrhea, No Constipation, No Melena, No Hematochezia, No Other Genitourinary: No Dysuria, No Frequency, No Incontinence, No Hematuria, No Retention, No Discharge, No Urgency, No Pain, No Flank Pain, No Other, No , No , No , No , No , No , No Musculoskeletal: Yes Gait Disturbance, Yes Joint Pain, Yes Joint Stiffness Neurological: No Behavorial Changes, No Bowel/Bladder ControlChng, No Confusion , No Dizziness, No Gait Disturbance, No Headaches, No Impaired Coord/balance, No Memory Loss, No Numbness/Tingling, No Seizures, No Speech Problems, No Tremors, No Visual Changes, No Weakness, No Other Skin: Yes Dry Skin; No Eczema, No Hair Changes, No Lumps, No Mole Changes, No Mottling, No Nail Changes, No Pruritus, No Rash, No Skin Lesion Changes, No Other, No Acne Physical Exam General: Alert, Cooperative, No acute distress HEENT: Atraumatic, PERRLA, Mucous membr. moist/pink Lungs: Clear to auscultation, Normal air movement Heart: S1S2, no murmurs Extremities: No cyanosis, Normal pulses Skin: No breakdown, No significant lesion Neuro: Normal speech, Normal tone, Sensation intact Psych/Mental Status: Mental status NL, Mood NL Vitals Vitals Vital Signs Date Time Temp Pulse Resp B/P (MAP) Pulse Ox O2 Delivery O2 Flow Rate FiO2 04/20/18 05:47 92 Room Air 04/20/18 03:15 98.3 90 18 120/74 (89) 98.3 04/19/18 16:53 2.0 5.0 2.0 Labs Labs Laboratory Tests Test 04/19/18 14:23 White Blood Count 6.8 x10^3/uL (4.0-11.0) Red Blood Count 3.66 x10^6/uL (4.30-5.70) Hemoglobin 13.6 g/dL (13.0-17.5) Hematocrit 39.3 % (39.0-53.0) Mean Corpuscular Volume 108 fL (79-100) Mean Corpuscular Hemoglobin 37 pg (25-35) Mean Corpuscular Hemoglobin Concent 35 g/dL (31-37) Red Cell Distribution Width 14.7 % (11.5-14.5) Platelet Count 250 x10^3/uL (140-400) Neutrophils (%) (Auto) 79 % (31-73) Lymphocytes (%) (Auto) 14 % (24-48) Monocytes (%) (Auto) 6 % (0-9) Eosinophils (%) (Auto) 2 % (0-3) Basophils (%) (Auto) 1 % (0-3) Neutrophils # (Auto) 5.3 x10^3uL (1.8-7.7) Lymphocytes # (Auto) 0.9 x10^3/uL (1.0-4.8) Monocytes # (Auto) 0.4 x10^3/uL (0.0-1.1) Eosinophils # (Auto) 0.1 x10^3/uL (0.0-0.7) Basophils # (Auto) 0.0 x10^3/uL (0.0-0.2) Prothrombin Time 13.4 SEC (11.7-14.0) Prothromb Time International Ratio 1.1 (0.8-1.1) Activated Partial Thromboplast Time 30 SEC (24-38) Sodium Level 135 mmol/L (136-145) Potassium Level 4.1 mmol/L (3.5-5.1) Chloride Level 100 mmol/L (98-107) Carbon Dioxide Level 26 mmol/L (21-32) Anion Gap 9 (6-14) Blood Urea Nitrogen 9 mg/dL (8-26) Creatinine 0.8 mg/dL (0.7-1.3) Estimated GFR (Cockcroft-Gault) 97.0 BUN/Creatinine Ratio 11 (6-20) Glucose Level 104 mg/dL (70-99) Calcium Level 9.5 mg/dL (8.5-10.1) Total Bilirubin 0.4 mg/dL (0.2-1.0) Aspartate Amino Transf (AST/SGOT) 15 U/L (15-37) Alanine Aminotransferase (ALT/SGPT) 16 U/L (16-63) Alkaline Phosphatase 92 U/L (46-116) Total Protein 7.3 g/dL (6.4-8.2) Albumin 3.1 g/dL (3.4-5.0) Albumin/Globulin Ratio 0.7 (1.0-1.7) Ethyl Alcohol Level < 10 mg/dL (0-10) Laboratory Tests Test 04/19/18 14:23 White Blood Count 6.8 x10^3/uL (4.0-11.0) Red Blood Count 3.66 x10^6/uL (4.30-5.70) Hemoglobin 13.6 g/dL (13.0-17.5) Hematocrit 39.3 % (39.0-53.0) Mean Corpuscular Volume 108 fL (79-100) Mean Corpuscular Hemoglobin 37 pg (25-35) Mean Corpuscular Hemoglobin Concent 35 g/dL (31-37) Red Cell Distribution Width 14.7 % (11.5-14.5) Platelet Count 250 x10^3/uL (140-400) Neutrophils (%) (Auto) 79 % (31-73) Lymphocytes (%) (Auto) 14 % (24-48) Monocytes (%) (Auto) 6 % (0-9) Eosinophils (%) (Auto) 2 % (0-3) Basophils (%) (Auto) 1 % (0-3) Neutrophils # (Auto) 5.3 x10^3uL (1.8-7.7) Lymphocytes # (Auto) 0.9 x10^3/uL (1.0-4.8) Monocytes # (Auto) 0.4 x10^3/uL (0.0-1.1) Eosinophils # (Auto) 0.1 x10^3/uL (0.0-0.7) Basophils # (Auto) 0.0 x10^3/uL (0.0-0.2) Prothrombin Time 13.4 SEC (11.7-14.0) Prothromb Time International Ratio 1.1 (0.8-1.1) Activated Partial Thromboplast Time 30 SEC (24-38) Sodium Level 135 mmol/L (136-145) Potassium Level 4.1 mmol/L (3.5-5.1) Chloride Level 100 mmol/L (98-107) Carbon Dioxide Level 26 mmol/L (21-32) Anion Gap 9 (6-14) Blood Urea Nitrogen 9 mg/dL (8-26) Creatinine 0.8 mg/dL (0.7-1.3) Estimated GFR (Cockcroft-Gault) 97.0 BUN/Creatinine Ratio 11 (6-20) Glucose Level 104 mg/dL (70-99) Calcium Level 9.5 mg/dL (8.5-10.1) Total Bilirubin 0.4 mg/dL (0.2-1.0) Aspartate Amino Transf (AST/SGOT) 15 U/L (15-37) Alanine Aminotransferase (ALT/SGPT) 16 U/L (16-63) Alkaline Phosphatase 92 U/L (46-116) Total Protein 7.3 g/dL (6.4-8.2) Albumin 3.1 g/dL (3.4-5.0) Albumin/Globulin Ratio 0.7 (1.0-1.7) Ethyl Alcohol Level < 10 mg/dL (0-10) VTE Prophylaxis Ordered VTE Prophylaxis Devices: No VTE Pharmacological Prophylaxi: Yes Assessment/Plan Assessment/Plan acute right hip pain after pulling on 3/4 ton haybale acute on chronic pain tobacco use disorder lug weakness and numbness, getting nesbitt for metal allergy and other possible causes, advance diet Ot and PT EZRA LE MD Apr 20, 2018 08:40
--- NOTE | 2018-04-20 10:45 | PDOC4 ---
Operative Note Operative Note Date of procedure: 04/20/2018 Surgeon: Charly Dye Business Associate: Judith Cain, certified ethical hacker Preoperative diagnosis: Anterior left total hip arthroplasty dislocation Postoperative diagnosis: Same Procedure performed: closed reduction of anterior left hip dislocation Anesthesia: Gen. Complications: none Blood loss: 0 Findings: I tested his hip through range of motion and was unable to dislocate it after the closed reduction Reason for procedure: Patient is very pleasant 63-year-old gentleman who dislocated his hip in a traumatic fashion yesterday. Please see my consult note for further details. I discussion of the risks, benefits, and alternatives to the above procedure with him and he wished to proceed. Description of procedure: Patient was greeted in the preoperative area where the correct extremity was verified and marked. He was taken back to the operative suite and transferred gently supine to the operating room table where he had successful induction of anesthesia. After this, due to abdominal fullness and urinary retention, he was straight cathetered in a sterile fashion by nursing, which return to about 600 mL of clear urine. After allowing adequate anesthesia, I then slightly externally rotated leg and applied longitudinal traction, using my library technical assistant for countertraction. I was able to reduce his hip dislocation and then confirmed this under biplanar fluoroscopy. I tested his hip in flexion, adduction and internal rotation as well as extension and external rotation and felt it was stable. He was then awakened from anesthesia and transferred gently supine to the recovery room cart and taken to the PACU in a stable and extubated condition. Postoperative plan is to readmitted to the floor, PT and OT as well as urology will assist with his care. CHARLY DYE II, MD Apr 20, 2018 10:45
[2018-04-20 11:00] VITALS: BP 118/68
[2018-04-20] MEDS ORDERED: ALBUTEROL SULFATE 2.5 MG/3 ML NEBU. NEB PRN (13:00)
[2018-04-20] MEDS ORDERED: NON FORMULARY ITEM (Albuterol Sulfate (Ventolin Hfa Inhaler) 2 PUFF) INH PRN (13:00)
--- NOTE | 2018-04-20 13:08 | PDOC2 ---
UROLOGY CONSULT Date of Admission DATE: 04/20/18 TIME: 13:00 Chief Complaint luts Source: Chart review, Patient Several months of worsening luts, no dysuria, no gh. Temporally related to hip and back discitis. Did better previously on flomax, resumed while IP. No prior aur, no gh. Told he had elevated PSA, unsure of leves, but worrisome enough to recommned debi sbx at [facility]. No FH of CAP. ROS ROS: RESPIRATORY: Shortness of breath denies. Cough denies. UROLOGY: Denies blood in urine. Denies difficulty urinating today Past Surgical History: Total hip replacement Past Surgical History: Other Additional Past Surgical Histo: HIP REPLACEMENT x 2,Spine biopsy Current Medications Current Medications Hydromorphone HCl (Dilaudid) 2 mg 1X ONCE IV Last administered on 04/19/18at 16 :07; Start 04/19/18 at 15:45; Stop 04/19/18 at 15:46; Status DC Propofol 20 ml @ 0 mls/hr 1X ONCE IV Last administered on 04/19/18at 17:25; Start 04/19/18 at 16:45; Stop 04/19/18 at 16:46; Status DC Fentanyl Citrate (Fentanyl 2ml Vial) 50 mcg Q2HR PRN IV PAIN Last administered on 04/19/18at 20:02; Start 04/19/18 at 19:45; Stop 04/19/18 at 20:04; Status DC Fentanyl Citrate (Fentanyl 2ml Vial) 50 mcg PRN Q2HR PRN IV PAIN Last administered on 04/20/18at 05:47; Start 04/19/18 at 20:15; Stop 04/20/18 at 05:47 ; Status DC Ondansetron HCl (Zofran) 4 mg PRN Q8HRS PRN IV NAUSEA/VOMITING; Start 04/19/18 at 21:00; Stop 04/20/18 at 20:59 Propofol 20 ml @ As Directed STK-MED ONCE IV ; Start 04/20/18 at 07:35; Stop at 07:38; Status DC Lidocaine HCl (Lidocaine Pf 2% Vial) 5 ml STK-MED ONCE .ROUTE ; Start 04/20/18 at 07:35; Stop 04/20/18 at 07:38; Status DC Ondansetron HCl (Zofran) 4 mg PRN Q6HRS PRN IV NAUSEA/VOMITING; Start 04/20/18 at 08:00; Stop 04/21/18 at 07:59 Fentanyl Citrate (Fentanyl 2ml Vial) 25 mcg PRN Q5MIN PRN IV MILD PAIN; Start 04/20/18 at 08:00; Stop 04/21/18 at 07:59 Fentanyl Citrate (Fentanyl 2ml Vial) 50 mcg PRN Q5MIN PRN IV MODERATE TO SEVERE PAIN; Start 04/20/18 at 08:00; Stop 04/21/18 at 07:59 Morphine Sulfate (Morphine Sulfate) 1 mg PRN Q10MIN PRN IV SEVERE PAIN; Start 04/20/18 at 08:00; Stop 04/21/18 at 07:59 Ringer's Solution 1,000 ml @ 30 mls/hr Q24H IV ; Start 04/20/18 at 07:53; Stop 04/20/18 at 19:52 Lidocaine HCl (Xylocaine-Mpf 1% 2ml Vial) 2 ml 1X PRN PRN ID IV START; Start at 08:00; Stop 04/21/18 at 07:59 Hydromorphone HCl (Dilaudid) 0.5 mg PRN Q10MIN PRN IV SEV PAIN, Second choice; Start 04/20/18 at 08:00; Stop 04/21/18 at 07:59 Prochlorperazine Edisylate (Compazine) 5 mg PACU PRN PRN IV NAUSEA, MRX1; Start 04/20/18 at 08:00; Stop 04/21/18 at 07:59 Phenylephrine HCl (PHENYLEPHRINE in 0.9% NACL PF) 1 mg STK-MED ONCE IV ; Start 04/20/18 at 08:23; Stop 04/20/18 at 08:25; Status DC Dexamethasone Sodium Phosphate (Decadron) 20 mg STK-MED ONCE .ROUTE ; Start at 08:36; Stop 04/20/18 at 08:38; Status DC Ondansetron HCl (Zofran) 4 mg STK-MED ONCE .ROUTE ; Start 04/20/18 at 08:36; Stop 04/20/18 at 08:38; Status DC Fentanyl Citrate (Fentanyl 2ml Vial) 100 mcg STK-MED ONCE .ROUTE ; Start at 08:36; Stop 04/20/18 at 08:38; Status DC Sevoflurane (Ultane) 8 ml STK-MED ONCE IH ; Start 04/20/18 at 08:36; Stop at 08:39; Status DC Cyanocobalamin (Vitamin B-12) 1,000 mcg WEEKLY IM ; Start 04/27/18 at 09:00 Cyclobenzaprine HCl (Flexeril) 10 mg PRN TID PRN PO MUSCLE SPASMS; Start at 13:00 Tamsulosin HCl (Flomax) 0.4 mg DAILY PO ; Start 04/20/18 at 13:00 Trazodone HCl (Desyrel) 50 mg HS PO ; Start 04/20/18 at 21:00 Non-Formulary Medication (Albuterol Sulfate (Ventolin Hfa Inhaler)) 2 puff Q4HRS PRN INH WHEEZING; Start 04/20/18 at 13:00; Status UNV Non-Formulary Medication (Fluticasone/ Salmeterol (Advair 100-50 Diskus)) 1 puff BID IH ; Start 04/20/18 at 21:00; Status UNV Oxycodone/ Acetaminophen (Percocet 7.5/ 325) 1 tab PRN Q4HRS PRN PO PAIN; Start 04/20/18 at 13:00 Albuterol Sulfate (Ventolin Neb Soln) 2.5 mg RTQID NEB ; Start 04/20/18 at 16:00 Albuterol Sulfate (Ventolin Neb Soln) 2.5 mg PRN Q4HRS PRN NEB SHORTNESS OF BREATH; Start 04/20/18 at 13:00 Budesonide (Pulmicort) 0.5 mg RTBID NEB ; Start 04/20/18 at 20:00 Active Scripts Active Flomax (Tamsulosin Hcl) 0.4 Mg Cap.er.24h 1 Cap PO DAILY Ventolin Hfa Inhaler (Albuterol Sulfate) 18 Gm Hfa.aer.ad 2 Puff INH Q4HRS PRN Reported Vitamin B-12 (Cyanocobalamin (Vitamin B-12)) 1,000 Mcg Tablet 1,000 Mcg IM WEEKLY Cyclobenzaprine Hcl 10 Mg Tablet 1 Tab PO PRN TID PRN Trazodone Hcl 50 Mg Tablet 50 Mg PO HS Advair 100-50 Diskus (Fluticasone/Salmeterol) 1 Each Disk.w.dev 1 Puff IH BID LAST DOSE GIVEN: DATE:02-03-15 TIME:9:00 a.m. NEXT DOSE DUE: DATE:02-03-15 TIME:9:00 p.m. Allergies: Coded Allergies: Sulfa (Sulfonamide Antibiotics) (Verified Allergy, Intermediate, rash, 01/01/17) cobalt (Verified Allergy, Intermediate, 01/03/18) COBALT METAL USED IN ORTHOPEDIC EQUIPMENT REACTED WITH SKIN TESTING Physical Examination PHYSICAL EXAMINATION: GENERAL: Gen. appearance: No acute distress. Mood/affect: Pleasant. HEENT: Head: Normocephalic, atraumatic. Airway Impairment: No. CHEST: Shape and expansion: Normal. Expansion: Normal. SKIN: General: Warm. Color: Good. GENITOURINARY:External genitalia - wnl. NEUROLOGICAL: Mental status: Alert and oriented 3. Language: Normal. VITALS Vital Signs Date Time Temp Pulse Resp B/P (MAP) Pulse Ox O2 Delivery O2 Flow Rate FiO2 04/20/18 11:00 98.3 93 18 118/68 (85) 93 Room Air 98.3 04/20/18 08:40 8 Labs Laboratory Tests Test 04/19/18 14:23 White Blood Count 6.8 x10^3/uL (4.0-11.0) Red Blood Count 3.66 x10^6/uL (4.30-5.70) Hemoglobin 13.6 g/dL (13.0-17.5) Hematocrit 39.3 % (39.0-53.0) Mean Corpuscular Volume 108 fL (79-100) Mean Corpuscular Hemoglobin 37 pg (25-35) Mean Corpuscular Hemoglobin Concent 35 g/dL (31-37) Red Cell Distribution Width 14.7 % (11.5-14.5) Platelet Count 250 x10^3/uL (140-400) Neutrophils (%) (Auto) 79 % (31-73) Lymphocytes (%) (Auto) 14 % (24-48) Monocytes (%) (Auto) 6 % (0-9) Eosinophils (%) (Auto) 2 % (0-3) Basophils (%) (Auto) 1 % (0-3) Neutrophils # (Auto) 5.3 x10^3uL (1.8-7.7) Lymphocytes # (Auto) 0.9 x10^3/uL (1.0-4.8) Monocytes # (Auto) 0.4 x10^3/uL (0.0-1.1) Eosinophils # (Auto) 0.1 x10^3/uL (0.0-0.7) Basophils # (Auto) 0.0 x10^3/uL (0.0-0.2) Prothrombin Time 13.4 SEC (11.7-14.0) Prothromb Time International Ratio 1.1 (0.8-1.1) Activated Partial Thromboplast Time 30 SEC (24-38) Sodium Level 135 mmol/L (136-145) Potassium Level 4.1 mmol/L (3.5-5.1) Chloride Level 100 mmol/L (98-107) Carbon Dioxide Level 26 mmol/L (21-32) Anion Gap 9 (6-14) Blood Urea Nitrogen 9 mg/dL (8-26) Creatinine 0.8 mg/dL (0.7-1.3) Estimated GFR (Cockcroft-Gault) 97.0 BUN/Creatinine Ratio 11 (6-20) Glucose Level 104 mg/dL (70-99) Calcium Level 9.5 mg/dL (8.5-10.1) Total Bilirubin 0.4 mg/dL (0.2-1.0) Aspartate Amino Transf (AST/SGOT) 15 U/L (15-37) Alanine Aminotransferase (ALT/SGPT) 16 U/L (16-63) Alkaline Phosphatase 92 U/L (46-116) Total Protein 7.3 g/dL (6.4-8.2) Albumin 3.1 g/dL (3.4-5.0) Albumin/Globulin Ratio 0.7 (1.0-1.7) Ethyl Alcohol Level < 10 mg/dL (0-10) Laboratory Tests Test 04/19/18 14:23 White Blood Count 6.8 x10^3/uL (4.0-11.0) Red Blood Count 3.66 x10^6/uL (4.30-5.70) Hemoglobin 13.6 g/dL (13.0-17.5) Hematocrit 39.3 % (39.0-53.0) Mean Corpuscular Volume 108 fL (79-100) Mean Corpuscular Hemoglobin 37 pg (25-35) Mean Corpuscular Hemoglobin Concent 35 g/dL (31-37) Red Cell Distribution Width 14.7 % (11.5-14.5) Platelet Count 250 x10^3/uL (140-400) Neutrophils (%) (Auto) 79 % (31-73) Lymphocytes (%) (Auto) 14 % (24-48) Monocytes (%) (Auto) 6 % (0-9) Eosinophils (%) (Auto) 2 % (0-3) Basophils (%) (Auto) 1 % (0-3) Neutrophils # (Auto) 5.3 x10^3uL (1.8-7.7) Lymphocytes # (Auto) 0.9 x10^3/uL (1.0-4.8) Monocytes # (Auto) 0.4 x10^3/uL (0.0-1.1) Eosinophils # (Auto) 0.1 x10^3/uL (0.0-0.7) Basophils # (Auto) 0.0 x10^3/uL (0.0-0.2) Prothrombin Time 13.4 SEC (11.7-14.0) Prothromb Time International Ratio 1.1 (0.8-1.1) Activated Partial Thromboplast Time 30 SEC (24-38) Sodium Level 135 mmol/L (136-145) Potassium Level 4.1 mmol/L (3.5-5.1) Chloride Level 100 mmol/L (98-107) Carbon Dioxide Level 26 mmol/L (21-32) Anion Gap 9 (6-14) Blood Urea Nitrogen 9 mg/dL (8-26) Creatinine 0.8 mg/dL (0.7-1.3) Estimated GFR (Cockcroft-Gault) 97.0 BUN/Creatinine Ratio 11 (6-20) Glucose Level 104 mg/dL (70-99) Calcium Level 9.5 mg/dL (8.5-10.1) Total Bilirubin 0.4 mg/dL (0.2-1.0) Aspartate Amino Transf (AST/SGOT) 15 U/L (15-37) Alanine Aminotransferase (ALT/SGPT) 16 U/L (16-63) Alkaline Phosphatase 92 U/L (46-116) Total Protein 7.3 g/dL (6.4-8.2) Albumin 3.1 g/dL (3.4-5.0) Albumin/Globulin Ratio 0.7 (1.0-1.7) Ethyl Alcohol Level < 10 mg/dL (0-10) Assessment/Plan bph w luts. slow urine flow. agree w flomax. recommend timed and double voiding. pvr check after next void. psa in 2 weeks may continue fu w me as OP. Past Medical History: Other Additional Past Medical Histor: mesothelioma,chronic back pain,neuropathy, infecion in Spine Urine ret. LEROY YBARRA MD Apr 20, 2018 13:08
[2018-04-20] MEDS: CYCLOBENZAPRINE 10 MG TABLET. PO PRN ×2 (13:27→17:56)
[2018-04-20] MEDS: oxyCODONE/APAP 7.5/325 1 TAB TABLET PO PRN ×3 (13:28→22:13)
[2018-04-20] MEDS: TAMSULOSIN 0.4 MG CAP.ER.24H. PO SCH (13:28)
[2018-04-20 15:00] VITALS: BP 107/60
[2018-04-20 16:15] LABS: BILIRUBIN,URINE NEGATIVE (NEG); CLARITY,URINE CLEAR; COLOR,URINE YELLOW; NITRITE,URINE NEGATIVE (NEG); PH,URINE 6.5; PROTEIN,URINE NEGATIVE (NEG-TRACE)
[2018-04-20 16:23] LABS: BARBITURATES NEG (NEG); BENZODIAZEPINES NEG (NEG); CANNABINOIDS NEG (NEG); COCAINE NEG (NEG); METHADONE NEG (NEG); OPIATES POS (NEG); PHENCYCLIDINE NEG (NEG)
[2018-04-20 16:24] LABS: BACTERIA,URINE 0 /HPF (0-FEW); RBC,URINE OCC /HPF (0-2); SQUAMOUS EPITHELIAL CELL,UR OCC /LPF; WBC,URINE 0 /HPF (0-4)
[2018-04-20 16:25] LABS: AMPHETAMINE/METHAMPHETAMINE NEG (NEG)
[2018-04-20] MEDS: ALBUTEROL SULFATE 2.5 MG/3 ML NEBU. NEB SCH ×2 (16:52→20:01)
[2018-04-20 19:00] VITALS: BP 105/64
[2018-04-20] MEDS: BUDESONIDE 0.5 MG/2 ML NEBU. NEB SCH (20:00)
[2018-04-20] MEDS ORDERED: NON FORMULARY ITEM (Fluticasone/Salmeterol (Advair 100-50 Diskus) 1 PUFF) IH SCH (21:00)
[2018-04-20] MEDS ORDERED: traZODone 50 MG TABLET. PO SCH (21:00)
[2018-04-20 23:00] VITALS: BP 120/72
--- NOTE | 2018-04-20 23:00 | NUR ---
Pt voided 300 PVR was 350
[2018-04-21 03:00] VITALS: BP 107/57
[2018-04-21] MEDS: ALBUTEROL SULFATE 2.5 MG/3 ML NEBU. NEB SCH (06:06)
[2018-04-21] MEDS: BUDESONIDE 0.5 MG/2 ML NEBU. NEB SCH (06:06)
[2018-04-21 07:00] VITALS: BP 108/66
[2018-04-21] MEDS: TAMSULOSIN 0.4 MG CAP.ER.24H. PO SCH (08:25)
--- NOTE | 2018-04-21 09:08 | PDOC ---
ORTHO PROGRESS NOTES Subjective Denies any hip pain, able to void easier today Vitals Vital Signs Date Time Temp Pulse Resp B/P (MAP) Pulse Ox O2 Delivery O2 Flow Rate FiO2 04/21/18 07:00 97.4 83 108/66 (80) 95 Room Air 97.4 04/21/18 03:00 18 04/20/18 08:40 8 Labs Laboratory Tests Test 04/19/18 14:23 04/20/18 16:00 White Blood Count 6.8 x10^3/uL (4.0-11.0) Red Blood Count 3.66 x10^6/uL (4.30-5.70) Hemoglobin 13.6 g/dL (13.0-17.5) Hematocrit 39.3 % (39.0-53.0) Mean Corpuscular Volume 108 fL (79-100) Mean Corpuscular Hemoglobin 37 pg (25-35) Mean Corpuscular Hemoglobin Concent 35 g/dL (31-37) Red Cell Distribution Width 14.7 % (11.5-14.5) Platelet Count 250 x10^3/uL (140-400) Neutrophils (%) (Auto) 79 % (31-73) Lymphocytes (%) (Auto) 14 % (24-48) Monocytes (%) (Auto) 6 % (0-9) Eosinophils (%) (Auto) 2 % (0-3) Basophils (%) (Auto) 1 % (0-3) Neutrophils # (Auto) 5.3 x10^3uL (1.8-7.7) Lymphocytes # (Auto) 0.9 x10^3/uL (1.0-4.8) Monocytes # (Auto) 0.4 x10^3/uL (0.0-1.1) Eosinophils # (Auto) 0.1 x10^3/uL (0.0-0.7) Basophils # (Auto) 0.0 x10^3/uL (0.0-0.2) Prothrombin Time 13.4 SEC (11.7-14.0) Prothromb Time International Ratio 1.1 (0.8-1.1) Activated Partial Thromboplast Time 30 SEC (24-38) Sodium Level 135 mmol/L (136-145) Potassium Level 4.1 mmol/L (3.5-5.1) Chloride Level 100 mmol/L (98-107) Carbon Dioxide Level 26 mmol/L (21-32) Anion Gap 9 (6-14) Blood Urea Nitrogen 9 mg/dL (8-26) Creatinine 0.8 mg/dL (0.7-1.3) Estimated GFR (Cockcroft-Gault) 97.0 BUN/Creatinine Ratio 11 (6-20) Glucose Level 104 mg/dL (70-99) Calcium Level 9.5 mg/dL (8.5-10.1) Total Bilirubin 0.4 mg/dL (0.2-1.0) Aspartate Amino Transf (AST/SGOT) 15 U/L (15-37) Alanine Aminotransferase (ALT/SGPT) 16 U/L (16-63) Alkaline Phosphatase 92 U/L (46-116) Total Protein 7.3 g/dL (6.4-8.2) Albumin 3.1 g/dL (3.4-5.0) Albumin/Globulin Ratio 0.7 (1.0-1.7) Ethyl Alcohol Level < 10 mg/dL (0-10) Urine Collection Type Unknown Urine Color Yellow Urine Clarity Clear Urine pH 6.5 Urine Specific [place] 1.010 Urine Protein Negative mg/dL (NEG-TRACE) Urine Glucose (UA) 100 mg/dL (NEG) Urine Ketones (Stick) Negative mg/dL (NEG) Urine Blood Negative (NEG) Urine Nitrite Negative (NEG) Urine Bilirubin Negative (NEG) Urine Urobilinogen Dipstick 1.0 mg/dL (0.2 mg/dL) Urine Leukocyte Esterase Negative (NEG) Urine RBC Occ /HPF (0-2) Urine WBC 0 /HPF (0-4) Urine Squamous Epithelial Cells Occ /LPF Urine Bacteria 0 /HPF (0-FEW) Urine Opiates Screen Pos (NEG) Urine Methadone Screen Neg (NEG) Urine Barbiturates Neg (NEG) Urine Phencyclidine Screen Neg (NEG) Urine Amphetamine/Methamphetamine Neg (NEG) Urine Benzodiazepines Screen Neg (NEG) Urine Cocaine Screen Neg (NEG) Urine Cannabinoids Screen Neg (NEG) Urine Ethyl Alcohol Neg (NEG) Laboratory Tests Test 04/20/18 16:00 Urine Collection Type Unknown Urine Color Yellow Urine Clarity Clear Urine pH 6.5 Urine Specific [place] 1.010 Urine Protein Negative mg/dL (NEG-TRACE) Urine Glucose (UA) 100 mg/dL (NEG) Urine Ketones (Stick) Negative mg/dL (NEG) Urine Blood Negative (NEG) Urine Nitrite Negative (NEG) Urine Bilirubin Negative (NEG) Urine Urobilinogen Dipstick 1.0 mg/dL (0.2 mg/dL) Urine Leukocyte Esterase Negative (NEG) Urine RBC Occ /HPF (0-2) Urine WBC 0 /HPF (0-4) Urine Squamous Epithelial Cells Occ /LPF Urine Bacteria 0 /HPF (0-FEW) Urine Opiates Screen Pos (NEG) Urine Methadone Screen Neg (NEG) Urine Barbiturates Neg (NEG) Urine Phencyclidine Screen Neg (NEG) Urine Amphetamine/Methamphetamine Neg (NEG) Urine Benzodiazepines Screen Neg (NEG) Urine Cocaine Screen Neg (NEG) Urine Cannabinoids Screen Neg (NEG) Urine Ethyl Alcohol Neg (NEG) Notes A and A in normal clothes good ROM at hip, no tenderness Assessment and Plan discussed hip precautions, ok to WBAT with walker f/u Urology as outpatient ok to D/C home today PT as outpatient, I will order tomorrow GARRETT DYE II, MD Apr 21, 2018 09:08
--- NOTE | 2018-04-21 09:48 | PDOC3 ---
Discharge Summary Visit Information Date of Admission: Apr 20, 2018 Date of Discharge: Apr 21, 2018 Admitting Diagnosis: acute hip pain Final Diagnosis acute right hip pain after pulling on 3/4 ton hay bale acute pain with dislocated left prosthetic hip join tobacco use disorder leg weakness and numbness, getting nesbitt outpatient Problems Medical Problems: (1) Dislocation of left hip Status: Acute (2) Fall from standing Status: Acute Brief Hospital Course Allergies Allergies Coded Allergies Type Severity Reaction Last Updated Verified Sulfa (Sulfonamide Antibiotics) Allergy Intermediate rash 01/01/17 Yes cobalt Allergy Intermediate 01/03/18 Yes Vital Signs Vital Signs Date Time Temp Pulse Resp B/P (MAP) Pulse Ox O2 Delivery O2 Flow Rate FiO2 04/21/18 07:00 97.4 83 108/66 (80) 95 Room Air 97.4 04/21/18 03:00 18 04/20/18 08:40 8 Lab Results Laboratory Tests Test 04/19/18 14:23 04/20/18 16:00 White Blood Count 6.8 x10^3/uL (4.0-11.0) Red Blood Count 3.66 x10^6/uL (4.30-5.70) Hemoglobin 13.6 g/dL (13.0-17.5) Hematocrit 39.3 % (39.0-53.0) Mean Corpuscular Volume 108 fL (79-100) Mean Corpuscular Hemoglobin 37 pg (25-35) Mean Corpuscular Hemoglobin Concent 35 g/dL (31-37) Red Cell Distribution Width 14.7 % (11.5-14.5) Platelet Count 250 x10^3/uL (140-400) Neutrophils (%) (Auto) 79 % (31-73) Lymphocytes (%) (Auto) 14 % (24-48) Monocytes (%) (Auto) 6 % (0-9) Eosinophils (%) (Auto) 2 % (0-3) Basophils (%) (Auto) 1 % (0-3) Neutrophils # (Auto) 5.3 x10^3uL (1.8-7.7) Lymphocytes # (Auto) 0.9 x10^3/uL (1.0-4.8) Monocytes # (Auto) 0.4 x10^3/uL (0.0-1.1) Eosinophils # (Auto) 0.1 x10^3/uL (0.0-0.7) Basophils # (Auto) 0.0 x10^3/uL (0.0-0.2) Prothrombin Time 13.4 SEC (11.7-14.0) Prothromb Time International Ratio 1.1 (0.8-1.1) Activated Partial Thromboplast Time 30 SEC (24-38) Sodium Level 135 mmol/L (136-145) Potassium Level 4.1 mmol/L (3.5-5.1) Chloride Level 100 mmol/L (98-107) Carbon Dioxide Level 26 mmol/L (21-32) Anion Gap 9 (6-14) Blood Urea Nitrogen 9 mg/dL (8-26) Creatinine 0.8 mg/dL (0.7-1.3) Estimated GFR (Cockcroft-Gault) 97.0 BUN/Creatinine Ratio 11 (6-20) Glucose Level 104 mg/dL (70-99) Calcium Level 9.5 mg/dL (8.5-10.1) Total Bilirubin 0.4 mg/dL (0.2-1.0) Aspartate Amino Transf (AST/SGOT) 15 U/L (15-37) Alanine Aminotransferase (ALT/SGPT) 16 U/L (16-63) Alkaline Phosphatase 92 U/L (46-116) Total Protein 7.3 g/dL (6.4-8.2) Albumin 3.1 g/dL (3.4-5.0) Albumin/Globulin Ratio 0.7 (1.0-1.7) Ethyl Alcohol Level < 10 mg/dL (0-10) Urine Collection Type Unknown Urine Color Yellow Urine Clarity Clear Urine pH 6.5 Urine Specific [place] 1.010 Urine Protein Negative mg/dL (NEG-TRACE) Urine Glucose (UA) 100 mg/dL (NEG) Urine Ketones (Stick) Negative mg/dL (NEG) Urine Blood Negative (NEG) Urine Nitrite Negative (NEG) Urine Bilirubin Negative (NEG) Urine Urobilinogen Dipstick 1.0 mg/dL (0.2 mg/dL) Urine Leukocyte Esterase Negative (NEG) Urine RBC Occ /HPF (0-2) Urine WBC 0 /HPF (0-4) Urine Squamous Epithelial Cells Occ /LPF Urine Bacteria 0 /HPF (0-FEW) Urine Opiates Screen Pos (NEG) Urine Methadone Screen Neg (NEG) Urine Barbiturates Neg (NEG) Urine Phencyclidine Screen Neg (NEG) Urine Amphetamine/Methamphetamine Neg (NEG) Urine Benzodiazepines Screen Neg (NEG) Urine Cocaine Screen Neg (NEG) Urine Cannabinoids Screen Neg (NEG) Urine Ethyl Alcohol Neg (NEG) Laboratory Tests Test 04/20/18 16:00 Urine Collection Type Unknown Urine Color Yellow Urine Clarity Clear Urine pH 6.5 Urine Specific [place] 1.010 Urine Protein Negative mg/dL (NEG-TRACE) Urine Glucose (UA) 100 mg/dL (NEG) Urine Ketones (Stick) Negative mg/dL (NEG) Urine Blood Negative (NEG) Urine Nitrite Negative (NEG) Urine Bilirubin Negative (NEG) Urine Urobilinogen Dipstick 1.0 mg/dL (0.2 mg/dL) Urine Leukocyte Esterase Negative (NEG) Urine RBC Occ /HPF (0-2) Urine WBC 0 /HPF (0-4) Urine Squamous Epithelial Cells Occ /LPF Urine Bacteria 0 /HPF (0-FEW) Urine Opiates Screen Pos (NEG) Urine Methadone Screen Neg (NEG) Urine Barbiturates Neg (NEG) Urine Phencyclidine Screen Neg (NEG) Urine Amphetamine/Methamphetamine Neg (NEG) Urine Benzodiazepines Screen Neg (NEG) Urine Cocaine Screen Neg (NEG) Urine Cannabinoids Screen Neg (NEG) Urine Ethyl Alcohol Neg (NEG) Brief Hospital Course Mr. Bustillo is a 63 old with acute pain, dislocated hip joint, unable to reduce in ER, taken to OR, reduced Dr. Grady, obs overnight, no pain, able to walk, exam OK f Discharge Information Condition at Discharge: Improved Follow Up: Weeks Disposition/Orders: D/C to Home Scheduled Cyanocobalamin (Vitamin B-12) (Vitamin B-12) 1,000 Mcg Tablet, 1,000 MCG IM WEEKLY, (Reported) Entered as Reported by: TRACEY PUENTE on 01/01/18 0917 Last Action: Continued on 04/20/18 1251 by EZRA LE Fluticasone/Salmeterol (Advair 100-50 Diskus) 1 Each Disk.w.dev, 1 PUFF IH BID for asthma, #1 Ref 5 (Reported) LAST DOSE GIVEN: DATE:02-03-15 TIME:9:00 a.m. NEXT DOSE DUE: DATE:02-03-15 TIME:9:00 p.m. Entered as Reported by: CHEYENNE SOLARES on 11/27/14 1059 Last Action: Converted on 04/20/181250 by EZRA LE Tamsulosin Hcl (Flomax) 0.4 Mg Cap.er.24h, 1 CAP PO DAILY, #30 Ref 0 Prescribed by: RODGER DIANE MD on 01/13/18 1010 Last Taken: UNKNOWN on Unknown Date & Time Last Action: Continued on 04/20 by EZRA LE Trazodone Hcl (Trazodone Hcl) 50 Mg Tablet, 50 MG PO HS, (Reported) Entered as Reported by: CASSANDRA COLON on 10/04/17 0808 Last Taken: UNKNOWN on Unknown Date & Time Last Action: Continued on 04/20 by EZRA LE Scheduled PRN Albuterol Sulfate (Ventolin Hfa Inhaler) 18 Gm Hfa.aer.ad, 2 PUFF INH Q4HRS PRN for WHEEZING, #1 Ref 0 Prescribed by: KM DUARTE on 05/09/172017 Last Action: Converted on 04/20/181250 by EZRA LE Cyclobenzaprine Hcl (Cyclobenzaprine Hcl) 10 Mg Tablet, 1 TAB PO PRN TID PRN for MUSCLE SPASMS, #90 (Reported) Entered as Reported by: CASSANDRA COLON on 10/04/17807 Last Action: Continued on 04/20/181250 by EZRA LE Patient Instructions Patient Instructions f/u primary care EZRA LE MD Apr 21, 2018 09:48
--- NOTE | 2018-04-21 10:45 | NUR ---
Pt was given dc packet, no questions asked. VSS. No pain. This nurse escorted pt by at 1040.
[2018-04-27] MEDS ORDERED: CYANOCOBALAMIN (VITAMIN B-12) 1,000 MCG/ML VIAL IM SCH (09:00)
== END 2018-04-21 10:40 | disposition home or self-care (01) | DRG 561 ==
LOC: ER 13:34 → 4 NORTH 20:42
PROVIDERS: ADMIT Internal Medicine; ATTEND Internal Medicine
PROC: 0SWBXJZ Revision of Synthetic Substitute in Left Hip Joint, External Approach (ICD-10-PCS; principal; 2018-04-20 08:00)
DX: T84.021A Dislocation of internal left hip prosthesis, initial encounter (principal); I10 Essential (primary) hypertension; M19.90 Unspecified osteoarthritis, unspecified site; N40.1 Benign prostatic hyperplasia with lower urinary tract symptoms; G62.9 Polyneuropathy, unspecified; G89.29 Other chronic pain; R33.8 Other retention of urine; Z96.643 Presence of artificial hip joint, bilateral; W01.0XXA Fall on same level from slipping, tripping and stumbling without subsequent striking against object, initial encounter; Y79.2 Prosthetic and other implants, materials and accessory orthopedic devices associated with adverse incidents; Y93.89 Activity, other specified; Y99.8 Other external cause status; Y92.89 Other specified places as the place of occurrence of the external cause; Z72.0 Tobacco use; Z85.89 Personal history of malignant neoplasm of other organs and systems; Z88.2 Allergy status to sulfonamides; Z91.048 Other nonmedicinal substance allergy status
CPT/HCPCS: 27250; 36415; 73502; 76001; 80053; 80307; 81001; 85025; 85610; 85730; 94640; 94760; 96374; 99152; A7015; G0480; J1100; J1170; J2001; J2370; J2405; J2704; J3010; J7613; J7626; 97110; 97116; 99285-25

== ENCOUNTER 2018-05-09 14:56 | Emergency (ER) | payer BC, MEDICAID, OTHER ==
[~2018-05-09] VITALS: Ht 195.6 cm; Wt 79.4 kg
[~2018-05-09 14:56] MED LIST changes: +TRAZ-118 PO; -TRAZ-85 PO
[2018-05-09] MEDS ORDERED: PROPOFOL 10 MG/ML (20ML) VIAL. IV ONE (15:15)
--- NOTE | 2018-05-09 15:49 | PHYS DOC ---
MODERATE SEDATION ASSESSMENT RISKS/ALTERNATIVES Risks/Alternatives Risks and alternatives of this type of sedation and procedure discussed with: RISK/ALTERNATIVES: Patient H & P ON CHART H & P H & P on chart and reviewed for co-morbid conditions and appropriate labs. H&P ON CHART: Yes STATUS PREG STATUS ASSESSED: Yes MEDS/ALLERGIES REVIEWED Meds/Allergies Reviewed Medications and Allergies including time and route of recently administered narcotics and sedatives. MEDS/ALLERGIES REVIEWED: Yes ASA RATING ASA RATING: II AIRWAY ASSESSMENT Airway Assessment Airway patency, oral function limitations, presence of caps, crowns, dentures, partials, and ability to extend neck assessed. AIRWAY ASSESSMENT: Yes MALLAMPATI SCORE MALLAMPATI SCORE: I PRE-SEDATION ASSESSMENT PRE-SEDATION ASSESSMENT: Yes CHASIDY LEBRON MD May 09, 2018 15:49
--- NOTE | 2018-05-09 15:51 | PHYS DOC ---
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 Past Surgical History: Other Additional Past Surgical Histo: HIP REPLACEMENT x 2,Spine biopsy Additional Information: 0.5 PPD Alcohol Use: Occasionally Drug Use: None Adult General Chief Complaint Chief Complaint: HIP PAIN HPI HPI Patient is a 63 year old male brought in by ambulance after a hip dislocation. Apparently he slipped in the garage. Pain is moderate localized to the hip no other injury dull pain nonradiating had a similar episode 2 weeks ago no head injury he did have one beer earlier this morning. I did receive a call from Dr. CORTEZ patient's primary orthopedist prior to his arrival he did asked me to try to reduce this hip if possible. Review of Systems Review of Systems Constitutional: Denies fever or chills [] Eyes: Denies change in visual acuity, redness, or eye pain [] HENT: Denies nasal congestion or sore throat [] Respiratory: Denies cough or shortness of breath [] Cardiovascular: No additional information not addressed in HPI [] GI: Denies abdominal pain, nausea, vomiting, bloody stools or diarrhea [] Neurologic: Denies headache, focal weakness or sensory changes [] Endocrine: Denies polyuria or polydipsia [] All other systems were reviewed and found to be within normal limits, except as documented in this note. Current Medications Current Medications Current Medications Medications (Trade) Dose Ordered Sig/Shirlene Start Time Stop Time Status Last Admin Dose Admin Propofol (Diprivan) 200 mg 1X ONCE 05/09/18 15:15 05/09/18 15:16 DC 05/09/18 16:33 200 MG Allergies Allergies Allergies Coded Allergies Type Severity Reaction Last Updated Verified Sulfa (Sulfonamide Antibiotics) Allergy Intermediate rash 05/09/18 Yes cobalt Allergy Intermediate 05/09/18 Yes Physical Exam Physical Exam Constitutional: Well developed, well nourished, no acute distress, non-toxic appearance. [] HENT: Normocephalic, atraumatic, bilateral external ears normal, oropharynx moist, no oral exudates, nose normal. [] Eyes: PERRLA, EOMI, conjunctiva normal, no discharge. [] Neck: Normal range of motion, no tenderness, supple, no stridor. [] Cardiovascular:Heart rate regular rhythm, no murmur [] Lungs & Thorax: Bilateral breath sounds clear to auscultation [] Abdomen: Bowel sounds normal, soft, no tenderness, no masses, no pulsatile masses. [] Skin: Warm, dry, no erythema, no rash. [] Back: No tenderness, no CVA tenderness. [] Extremities: Hip is shortened and internally rotated mild tenderness there no laceration pulse present sensation intact distally no other muscular skeletal injury identified Neurologic: Alert and oriented X 3, normal motor function, normal sensory function, no focal deficits noted. [] Psychologic: Affect normal, judgement normal, mood normal. [] Current Patient Data Vital Signs Vital Signs Date Time Temp Pulse Resp B/P (MAP) Pulse Ox O2 Delivery O2 Flow Rate FiO2 05/09/18 16:24 94 15 130/72 2.0 15.0 05/09/18 14:56 99.2 95 Room Air 99.2 EKG EKG [] Radiology/Procedures Radiology/Procedures [] Impressions: Hip dislocation noted on x-ray Course & Med Decision Making Course & Med Decision Making Pertinent Labs and Imaging studies reviewed. (See chart for details) []Conscious sedation: Informed consent was obtained written consent. Propofol was given for sedation patient was monitored closely with cardiac monitoring and tidal CO2 monitor throughout no consultations were noted. Usual technique manual traction was used to attempt to reduce the hip, EASILY REDUCED TOTAL PROPOFOL 140 MG. XRAY CONFIRMED REDUCTION. no comlpications, nvi intact after procedure d/w [place], ok to d/c home. f/u next week. no shoveling no manual labor i told this tot he patient. Dragon Disclaimer Dragon Disclaimer This electronic medical record was generated, in whole or in part, using a voice recognition dictation system. Departure Departure Impression: Primary Impression: Dislocation of left hip Disposition: HOME, SELF-CARE Condition: IMPROVED Referrals: MANI ZENG (PCP) CHASIDY LEBRON MD May 09, 2018 15:50
--- NOTE | 2018-05-09 16:03 | RAD ---
Examination: 2 views of the left hip HISTORY: History of dislocation COMPARISON: Fluoroscopic image 04/20/2018 Findings/ impression: There is anterior and superior dislocation of the femoral prosthesis in relation to the left acetabular cup. Electronically signed by: Carter Self MD (05/09/2018 4:00 PM) [place] [id number]
[2018-05-09 16:24] VITALS: BP 130/72
[2018-05-09 17:03] VITALS: BP 126/75
--- NOTE | 2018-05-09 17:59 | RAD ---
AP and lateral left hip radiographs 05/09/2018 CLINICAL HISTORY: Post reduction of a hip dislocation. AP and lateral digital radiographs of the left hip were obtained. Comparison study is dated earlier the same day at 1519 hours. The patient is post left DAVID. The femoral component of the prosthesis now articulates normally with the acetabulum. The dislocation seen on the previous examination has been reduced. No fracture is seen. IMPRESSION: Interval reduction of a dislocation of the left DAVID as outlined above. Electronically signed by: Arthur Valdez MD (05/09/2018 5:56 PM) [facility]
== END 2018-05-09 17:30 | disposition home or self-care (01) ==
LOC: ER 14:57
DX: S73.005A Unspecified dislocation of left hip, initial encounter (principal); F17.200 Nicotine dependence, unspecified, uncomplicated; Z88.2 Allergy status to sulfonamides; Z91.09 Other allergy status, other than to drugs and biological substances; W01.0XXA Fall on same level from slipping, tripping and stumbling without subsequent striking against object, initial encounter; Y93.89 Activity, other specified; Y92.59 Other trade areas as the place of occurrence of the external cause; Y99.8 Other external cause status
CPT/HCPCS: 27265; 73502; 99285; J2704; 23650; 27250

== ENCOUNTER 2018-10-04 19:47 | Emergency (ER) | payer BC, MEDICAID ==
[~2018-10-04] VITALS: Ht 195.6 cm; Wt 77.1 kg
[2018-10-04] MEDS ORDERED: ASPIRIN 325 MG TABLET PO ONE (20:15)
[2018-10-04 20:19] LABS: BASO % 1 % (0-3); EOS # 0.1 x10^3/uL (0.0-0.7); EOS % 5 % (0-3); HEMATOCRIT 40.9 % (39.0-53.0); HEMOGLOBIN 14.3 g/dL (13.0-17.5); LYMPH # 1.2 x10^3/uL (1.0-4.8); LYMPH % 42 % (24-48); MEAN CORPUSCULAR HEMOGLOBIN 39 pg (25-35); MEAN CORPUSCULAR HGB CONC 35 g/dL (31-37); MEAN CORPUSCULAR VOLUME 111 fL (79-100); MONO # 0.4 x10^3/uL (0.0-1.1); MONO % 12 % (0-9); NEUT # 1.2 x10^3/uL (1.8-7.7); NEUT % 40 % (31-73); PLATELET COUNT 175 x10^3/uL (140-400); RED BLOOD COUNT 3.67 x10^6/uL (4.30-5.70); RED CELL DISTRIBUTION WIDTH 15.9 % (11.5-14.5); WHITE BLOOD COUNT 2.9 x10^3/uL (4.0-11.0)
[2018-10-04 20:26] LABS: PROTHROMBIN TIME PATIENT 12.4 SEC (11.7-14.0)
[2018-10-04 20:27] LABS: CALCIUM 8.9 mg/dL (8.5-10.1); CREATININE 0.9 mg/dL (0.7-1.3); GFR 84.7; POTASSIUM 3.9 mmol/L (3.5-5.1)
[2018-10-04 20:35] LABS: ALBUMIN 3.6 g/dL (3.4-5.0); MAGNESIUM 1.8 mg/dL (1.8-2.4); TOTAL BILIRUBIN 0.3 mg/dL (0.2-1.0); TOTAL PROTEIN 7.3 g/dL (6.4-8.2)
[2018-10-04] MEDS ORDERED: DEXAMETHASONE SOD PHOS 20 MG/5 ML VIAL. IV ONE (20:45)
[2018-10-04] MEDS ORDERED: fentaNYL PF VIAL 100 MCG/2 ML VIAL IV ONE (20:45)
[2018-10-04] MEDS ORDERED: IV NORMAL SALINE 1000ML BAG 1,000 ML IV ONE (20:45)
[2018-10-04 20:49] LABS: PLT ESTIMATE ADEQUATE (ADEQUATE)
[2018-10-04] MEDS ORDERED: CONTRAST GIVEN. MC PRN (21:00)
[2018-10-04] MEDS ORDERED: IOHEXOL 350 MG/ML 100 ML VIAL. IV ONE (21:00)
--- NOTE | 2018-10-04 21:08 | PHYS DOC ---
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 Past Surgical History: Other Additional Past Surgical Histo: HIP REPLACEMENT x 2,Spine biopsy Smokin Pack Per Day Alcohol Use: Occasionally Drug Use: None Adult General Chief Complaint Chief Complaint: CHEST PAIN HPI HPI Patient is a 63-year-old male who presents with right-sided chest pain. He has a history of COPD, mesothelioma on the left, and a lung nodule on the left. He normally has left-sided chest pain. Two weeks ago he started having a nonproductive cough that lasted about a week. On Sunday this week his cough started improving, but he started having right-sided chest pain that radiates down his right arm. The pain starts next to his right sternal border and radiates under his right armpit and down the back of his right arm. The pain is a sharp, that is worse with movement, lasting seconds to minutes. He has chronic shortness of breath with activity, that has been a little worse lately. Today he got lightheaded when he stood up. Currently his pain as a 9 out of 10, and he is not having any wheezing or shortness of breath. Review of Systems Review of Systems Constitutional: Denies fever or chills Eyes: Denies redness or eye pain HENT: Denies nasal congestion or sore throat Respiratory: Reports cough and shortness of breath Cardiovascular: Reports chest pain, denies palpitations GI: Denies abdominal pain, nausea, or vomiting : Denies dysuria or hematuria Musculoskeletal: Denies back pain or joint pain Integument: Denies rash or skin lesions Neurologic: Denies headache, focal weakness or sensory changes Complete systems were reviewed and found to be within normal limits, except as documented in this note. Current Medications Current Medications Current Medications Medications (Trade) Dose Ordered Sig/Shirlene Start Time Stop Time Status Last Admin Dose Admin Aspirin (Rene Aspirin) 325 mg 1X ONCE 10/04/18 20:15 10/04/18 20:16 DC 10/04/18 20:13 325 MG Dexamethasone Sodium Phosphate (Decadron) 10 mg 1X ONCE 10/04/18 20:45 10/04/18 20:46 DC 10/04/18 20:52 10 MG Fentanyl Citrate (Fentanyl 2ml Vial) 50 mcg 1X ONCE 10/04/18 20:45 10/04/18 20:46 DC 10/04/18 20:47 50 MCG Info (CONTRAST GIVEN -- Rx MONITORING) 1 each PRN DAILY PRN 10/04/18 21:00 10/04/18 22:39 DC Iohexol (Omnipaque 350 Mg/ml) 90 ml 1X ONCE 10/04/18 21:00 10/04/18 21:01 DC 10/04/18 21:11 90 ML Ketorolac Tromethamine (Toradol 15mg Vial) 15 mg STK-MED ONCE 10/04/18 22:14 10/04/18 22:15 DC Orphenadrine Citrate (Norflex) 60 mg STK-MED ONCE 10/04/18 22:14 10/04/18 22:15 DC Sodium Chloride 1,000 ml @ 1,000 mls/hr 1X ONCE 10/04/18 20:45 10/04/18 21:44 DC 10/04/18 20:51 1,000 MLS/HR Allergies Allergies Allergies Coded Allergies Type Severity Reaction Last Updated Verified Sulfa (Sulfonamide Antibiotics) Allergy Intermediate rash 05/09/18 Yes cobalt Allergy Intermediate 05/09/18 Yes Physical Exam Physical Exam Constitutional: Well developed, well nourished, no acute distress, non-toxic appearance HENT: Normocephalic, atraumatic, oropharynx moist Eyes: PERRL, EOMI, conjunctiva normal, no discharge Neck: Normal range of motion, no tenderness, supple Cardiovascular: Heart rate normal, regular rhythm Lungs & Thorax: Bilateral breath sounds clear to auscultation, no wheezing, right midaxillary line around ribs 5-6 is tender to palpation, chest wall tenderness Abdomen: Soft, no tenderness Skin: Warm, dry, no erythema, no rash Back: No tenderness, no CVA tenderness Extremities: No tenderness, ROM intact, no edema Neurologic: Alert and oriented X 3, normal motor function, normal sensory function, no focal deficits noted Psychologic: Affect normal, judgement normal, mood normal Current Patient Data Vital Signs Vital Signs Date Time Temp Pulse Resp B/P (MAP) Pulse Ox O2 Delivery O2 Flow Rate FiO2 10/04/18 22:00 72 20 132/77 (95) 99 Room Air 10/04/18 19:50 98.3 98.3 Lab Values Laboratory Tests Test 10/04/18 20:03 White Blood Count 2.9 x10^3/uL (4.0-11.0) L Red Blood Count 3.67 x10^6/uL (4.30-5.70) L Hemoglobin 14.3 g/dL (13.0-17.5) Hematocrit 40.9 % (39.0-53.0) Mean Corpuscular Volume 111 fL (79-100) H Mean Corpuscular Hemoglobin 39 pg (25-35) H Mean Corpuscular Hemoglobin Concent 35 g/dL (31-37) Red Cell Distribution Width 15.9 % (11.5-14.5) H Platelet Count 175 x10^3/uL (140-400) Neutrophils (%) (Auto) 40 % (31-73) Lymphocytes (%) (Auto) 42 % (24-48) Monocytes (%) (Auto) 12 % (0-9) H Eosinophils (%) (Auto) 5 % (0-3) H Basophils (%) (Auto) 1 % (0-3) Neutrophils # (Auto) 1.2 x10^3/uL (1.8-7.7) L Lymphocytes # (Auto) 1.2 x10^3/uL (1.0-4.8) Monocytes # (Auto) 0.4 x10^3/uL (0.0-1.1) Eosinophils # (Auto) 0.1 x10^3/uL (0.0-0.7) Basophils # (Auto) 0.0 x10^3/uL (0.0-0.2) Platelet Estimate Adequate (ADEQUATE) Macrocytosis Marked Prothrombin Time 12.4 SEC (11.7-14.0) Prothrombin Time INR 1.0 (0.8-1.1) PTT 27 SEC (24-38) Sodium Level 139 mmol/L (136-145) Potassium Level 3.9 mmol/L (3.5-5.1) Chloride Level 103 mmol/L (98-107) Carbon Dioxide Level 26 mmol/L (21-32) Anion Gap 10 (6-14) Blood Urea Nitrogen 10 mg/dL (8-26) Creatinine 0.9 mg/dL (0.7-1.3) Estimated GFR (Cockcroft-Gault) 84.7 BUN/Creatinine Ratio 11 (6-20) Glucose Level 112 mg/dL (70-99) H Calcium Level 8.9 mg/dL (8.5-10.1) Magnesium Level 1.8 mg/dL (1.8-2.4) Total Bilirubin 0.3 mg/dL (0.2-1.0) Aspartate Amino Transferase (AST) 27 U/L (15-37) Alanine Aminotransferase (ALT) 22 U/L (16-63) Alkaline Phosphatase 90 U/L (46-116) Creatine Kinase 215 U/L (39-308) Creatine Kinase MB (Mass) 2.2 ng/mL (0.0-3.6) Creatine Kinase MB Relative Index 1.0 % (0-4) Troponin I Quantitative < 0.017 ng/mL (0.000-0.055) OI-Xei-X-Type Natriuretic Peptide 39 pg/mL (0-124) Total Protein 7.3 g/dL (6.4-8.2) Albumin 3.6 g/dL (3.4-5.0) Albumin/Globulin Ratio 1.0 (1.0-1.7) Lipase 199 U/L (73-393) Laboratory Tests 10/04/18 20:03 Laboratory Tests 10/04/18 20:03 EKG EKG 10/04/28 at 1954: normal sinus rhythm at 81. No ST segment elevation. [] Radiology/Procedures Radiology/Procedures PROCEDURE: CT ANGIOGRAPHY CHEST CT arteriogram of the chest. HISTORY: Pleuritic chest pain CT arteriogram was done using 90 mL Omnipaque 350 contrast. Sagittal and coronal MIP images were reconstructed. Thyroid is homogeneous. There is no mediastinal adenopathy. There is mild atherosclerotic change in the aorta. Visualized portions liver and spleen are unremarkable. Adrenal glands are normal. There is a cyst at the upper pole the right kidney. There are changes from emphysema. There is mild peribronchial thickening. There is scarring or atelectasis along the diaphragm in the right lung base similar to an old study. An acute infiltrates or not identified. This study is negative for evidence of a pulmonary embolus. There is a 2 mm nodule on image #81 without change from an old study. Small ground glass nodule in the right lung apex on image #33 without significant change. IMPRESSION: 1. Mild peribronchial thickening. 2. Negative for a pulmonary embolus. 3. COPD. 4. Scarring or atelectasis along the right diaphragm 5. Tiny left lung nodules without change from the old study. PQRS Compliance Statement: One or more of the following individualized dose reduction techniques were utilized for this examination: 1. Automated exposure control 2. Adjustment of the mA and/or kV according to patient size 3. Use of iterative reconstruction technique Electronically signed by: Carloz Gentile MD (10/04/2018 9:54 PM) [facility] [] Course & Med Decision Making Course & Med Decision Making Pertinent Labs and Imaging studies reviewed. (See chart for details) Mr. Bustillo is a 63-year-old male with a past medical history of COPD, mesothelioma, and a left lung nodule who presents with right sided chest pain. 2 weeks ago he had a nonproductive, that lasted a week with no other upper respiratory symptoms. For the past week he has been having right sided chest p ain. The pain starts in his parasternal area and radiated under his right armpit and down his right arm. He has chronic shortness of breath with exertion that has been worse this week. On physical exam his lungs are clear to auscultation bilaterally without wheezing. He is tender to palpation on his anterior chest and in midaxillary region with reproducible symptoms. CT scan of his chest was negative for pulmonary embolism, and showed some scarring or atelectasis along right diaphragm. He could have costochondritis or pleurisy so we treated him with dexamethasone, prednisone, naproxen and NorFlex. Patient stable for discharge with outpatient follow-up with PCP. Discussed findings and plan with patient and family, who acknowledge understanding and agreement. Dragon Disclaimer Dragon Disclaimer This electronic medical record was generated, in whole or in part, using a voice recognition dictation system. Departure Departure Impression: Primary Impression: Right-sided chest wall pain Disposition: HOME, SELF-CARE Condition: STABLE Referrals: MANI ZENG (PCP) Patient Instructions: Chest Wall Pain, Amxa-il-[id number], Costochondritis, Aepb-tk-[id number], Pleurisy, Qfym-fv-[id number] Scripts Prednisone (PREDNISONE) 20 Mg Tablet 2 TAB PO DAILY, #8 TAB Prov: AIDAN FRANCOIS DO 10/04/18 Naproxen (NAPROXEN) 375 Mg Tablet 1 TAB PO TID PRN for PAIN, #20 TAB Prov: AIDAN FRANCOIS DO 10/04/18 Orphenadrine Citrate (ORPHENADRINE CITRATE) 100 Mg Tablet.er 100 MG PO BID, #14 Prov: AIDAN FRANCOIS DO 10/04/18 AIDAN FRANCOIS DO Oct 04, 2018 21:08
--- NOTE | 2018-10-04 21:57 | RAD ---
CT arteriogram of the chest. HISTORY: Pleuritic chest pain CT arteriogram was done using 90 mL Omnipaque 350 contrast. Sagittal and coronal MIP images were reconstructed. Thyroid is homogeneous. There is no mediastinal adenopathy. There is mild atherosclerotic change in the aorta. Visualized portions liver and spleen are unremarkable. Adrenal glands are normal. There is a cyst at the upper pole the right kidney. There are changes from emphysema. There is mild peribronchial thickening. There is scarring or atelectasis along the diaphragm in the right lung base similar to an old study. An acute infiltrates or not identified. This study is negative for evidence of a pulmonary embolus. There is a 2 mm nodule on image #81 without change from an old study. Small ground glass nodule in the right lung apex on image #33 without significant change. IMPRESSION: 1. Mild peribronchial thickening. 2. Negative for a pulmonary embolus. 3. COPD. 4. Scarring or atelectasis along the right diaphragm 5. Tiny left lung nodules without change from the old study. PQRS Compliance Statement: One or more of the following individualized dose reduction techniques were utilized for this examination: 1. Automated exposure control 2. Adjustment of the mA and/or kV according to patient size 3. Use of iterative reconstruction technique Electronically signed by: Carloz Gentile MD (10/04/2018 9:54 PM) [facility]
[2018-10-04 22:00] VITALS: BP 132/77
[2018-10-04] MEDS ORDERED: ORPHENADRINE CITRATE 60 MG/2 ML VIAL. ONE (22:14)
[2018-10-04] MEDS ORDERED: KETOROLAC 15 MG/ML VIAL. ONE (22:14)
[2018-10-04] MEDS ORDERED: KETOROLAC 15 MG/ML VIAL. IV ONE (22:15)
[2018-10-04] MEDS ORDERED: ORPHENADRINE CITRATE 60 MG/2 ML VIAL. IV ONE (22:15)
[2018-10-04] MEDS ORDERED: NAPR-695 PO (22:19)
[2018-10-04] MEDS ORDERED: ORPH100T PO (22:19)
[2018-10-04] MEDS ORDERED: PRED20TA PO (22:19)
--- NOTE | 2018-10-06 11:47 | EKG ---
[facility] [address] [place] [address] Test Date: 2018-10-04 Test Time: 19:54:20 Pat Name: JACQUELINE FRYELINOAnselmo Department: Room: Gender: M Marketing Agent: : [id number] Requested By: AIDAN FRANCOIS Order Number: [id number] Reading MD: Measurements Intervals [place] Rate: 81 P: 66 IA: 124 QRS: 73 QRSD: 94 T: 58 QT: 346 QTc: 402 Interpretive Statements SINUS RHYTHM NORMAL ECG RI6.01 Unconfirmed report No previous ECG available for comparison
== END 2018-10-04 22:30 | disposition home or self-care (01) ==
LOC: ER 19:47
DX: R07.81 Pleurodynia (principal); J44.9 Chronic obstructive pulmonary disease, unspecified; R06.02 Shortness of breath; M79.601 Pain in right arm; G89.29 Other chronic pain; F17.200 Nicotine dependence, unspecified, uncomplicated; Z88.2 Allergy status to sulfonamides; Z88.8 Allergy status to other drugs, medicaments and biological substances
CPT/HCPCS: 36415; 71275; 80053; 82553; 83690; 83735; 83880; 84484; 85025; 85610; 85730; 93005; 96361; 96374; 96375; 99285; J1100; J1885; J2360; J3010; J7030; Q9967

== ENCOUNTER 2018-12-26 09:26 | Emergency (ER) | payer BC, MEDICAID ==
[~2018-12-26] VITALS: Ht 195.6 cm; Wt 74.8 kg
[~2018-12-26 09:26] MED LIST changes: +CYAN-25 IM; -CYAN10005 IM; +NAPR-695 PO; +ORPH100T PO; +PRED20TA PO
[2018-12-26] MEDS ORDERED: fentaNYL PF VIAL 100 MCG/2 ML VIAL IVP ONE (10:15)
[2018-12-26] MEDS ORDERED: ONDANSETRON PF 4 MG/2 ML VIAL. IVP ONE (10:15)
[2018-12-26 10:26] LABS: BASO % 1 % (0-3); EOS % 1 % (0-3); HEMATOCRIT 41.9 % (39.0-53.0); HEMOGLOBIN 14.6 g/dL (13.0-17.5); LYMPH # 0.8 x10^3/uL (1.0-4.8); LYMPH % 25 % (24-48); MEAN CORPUSCULAR HEMOGLOBIN 40 pg (25-35); MEAN CORPUSCULAR HGB CONC 35 g/dL (31-37); MEAN CORPUSCULAR VOLUME 113 fL (79-100); MONO # 0.6 x10^3/uL (0.0-1.1); MONO % 19 % (0-9); NEUT # 1.8 x10^3/uL (1.8-7.7); NEUT % 55 % (31-73); PLATELET COUNT 137 x10^3/uL (140-400); RED CELL DISTRIBUTION WIDTH 14.6 % (11.5-14.5); WHITE BLOOD COUNT 3.4 x10^3/uL (4.0-11.0)
--- NOTE | 2018-12-26 10:27 | RAD ---
EXAM: Left hip and pelvis, 2 views. HISTORY: Fall. COMPARISON: 05/09/2018 FINDINGS: A frontal view the pelvis and frontal and frog-leg views of the left hip are obtained. There are bilateral hip arthroplasties. No periprosthetic fracture is seen. There is degenerative change of the lower lumbar levels. IMPRESSION: No acute osseous finding. Bilateral hip arthroplasties overlying expected position. Electronically signed by: Gely Solorio MD (12/26/2018 10:24 AM) [place] [id number]
[2018-12-26] MEDS ORDERED: KETOROLAC 15 MG/ML VIAL. IV ONE (10:30)
[2018-12-26 10:44] LABS: CALCIUM 8.8 mg/dL (8.5-10.1); CREATININE 0.8 mg/dL (0.7-1.3)
[2018-12-26 10:50] LABS: ALBUMIN 3.5 g/dL (3.4-5.0); ALBUMIN/GLOBULIN RATIO 1.1 (1.0-1.7); TOTAL BILIRUBIN 0.4 mg/dL (0.2-1.0); TOTAL PROTEIN 6.6 g/dL (6.4-8.2)
[2018-12-26 10:58] LABS: % ATYL 1 % (0-0); % BANDS 18 % (0-9); % LYMPHS 30 % (24-48); % MONOS 14 % (0-10); % SEGS 37 % (35-66); PLT ESTIMATE ADEQUATE (ADEQUATE)
[2018-12-26 10:59] LABS: ANISOCYTOSIS SLIGHT
[2018-12-26 12:59] VITALS: BP 103/62
--- NOTE | 2018-12-26 13:57 | PHYS DOC ---
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 Past Surgical History: Other Additional Past Surgical Histo: HIP REPLACEMENT x 2,Spine biopsy Additional Information: 1 PPD Alcohol Use: Occasionally Drug Use: None Adult General Chief Complaint Chief Complaint: MECHANICAL FALL HPI HPI Patient is a 63 year old male who presents with left hip pain after falling from standing. Patient states he denies lawn and landed in his left hip. He is initially unable to stand or walk but crawled. Patient states he feels as though his left hip dislocated but may have relocated crawling indoors. Reports tenderness and swelling over the left lateral thigh. Denies other pain or injury complaint. No extremity weakness or loss of sensation. No obvious deformity shortening or rotation on exam.[] Review of Systems Review of Systems [] All other systems were reviewed and found to be within normal limits, except as documented in this note. Current Medications Current Medications Current Medications Medications (Trade) Dose Ordered Sig/Shirlene Start Time Stop Time Status Last Admin Dose Admin Fentanyl Citrate (Fentanyl 2ml Vial) 50 mcg 1X ONCE 12/26/18 10:15 12/26/18 10:16 DC 12/26/18 10:08 50 MCG Ketorolac Tromethamine (Toradol 15mg Vial) 15 mg 1X ONCE 12/26/18 10:30 12/26/18 10:31 DC 12/26/18 10:53 15 MG Ondansetron HCl (Zofran) 4 mg 1X ONCE 12/26/18 10:15 12/26/18 10:16 DC 12/26/18 10:09 4 MG Allergies Allergies Allergies Coded Allergies Type Severity Reaction Last Updated Verified Sulfa (Sulfonamide Antibiotics) Allergy Intermediate rash 05/09/18 Yes cobalt Allergy Intermediate 05/09/18 Yes Physical Exam Physical Exam Constitutional: Well developed, well nourished, no acute distress, non-toxic appearance. [] HENT: Normocephalic, atraumatic, bilateral external ears normal, oropharynx moist, no oral exudates, nose normal. [] Eyes: PERRLA, EOMI, conjunctiva normal, no discharge. [] Neck: Normal range of motion, no tenderness, supple, no stridor. [] Cardiovascular:Heart rate regular rhythm, no murmur [] Lungs & Thorax: Bilateral breath sounds clear to auscultation [] Abdomen: Bowel sounds normal, soft, no tenderness, no masses, no pulsatile masses. [] Skin: Warm, dry, no erythema, no rash. [] Back: No tenderness, no CVA tenderness. [] Extremities: Left hip, tenderness to palpation, no deformity shortening rotation.. [] Neurologic: Alert and oriented X 3, normal motor function, normal sensory function, no focal deficits noted. [] Psychologic: Affect normal, judgement normal, mood normal. [] Current Patient Data Vital Signs Vital Signs Date Time Temp Pulse Resp B/P (MAP) Pulse Ox O2 Delivery O2 Flow Rate FiO2 12/26/18 10:38 19 97 Room Air 12/26/18 10:29 86 12/26/18 09:26 97.5 142/82 (102) 97.5 Lab Values Laboratory Tests Test 12/26/18 10:10 White Blood Count 3.4 x10^3/uL (4.0-11.0) L Red Blood Count 3.70 x10^6/uL (4.30-5.70) L Hemoglobin 14.6 g/dL (13.0-17.5) Hematocrit 41.9 % (39.0-53.0) Mean Corpuscular Volume 113 fL (79-100) H Mean Corpuscular Hemoglobin 40 pg (25-35) H Mean Corpuscular Hemoglobin Concent 35 g/dL (31-37) Red Cell Distribution Width 14.6 % (11.5-14.5) H Platelet Count 137 x10^3/uL (140-400) L Neutrophils (%) (Auto) 55 % (31-73) Lymphocytes (%) (Auto) 25 % (24-48) Monocytes (%) (Auto) 19 % (0-9) H Eosinophils (%) (Auto) 1 % (0-3) Basophils (%) (Auto) 1 % (0-3) Neutrophils # (Auto) 1.8 x10^3/uL (1.8-7.7) Lymphocytes # (Auto) 0.8 x10^3/uL (1.0-4.8) L Monocytes # (Auto) 0.6 x10^3/uL (0.0-1.1) Eosinophils # (Auto) 0.0 x10^3/uL (0.0-0.7) Basophils # (Auto) 0.0 x10^3/uL (0.0-0.2) Segmented Neutrophils % 37 % (35-66) Band Neutrophils % 18 % (0-9) H Lymphocytes % 30 % (24-48) Atypical Lymphocytes % (Manual) 1 % (0-0) H Monocytes % 14 % (0-10) H Platelet Estimate Adequate (ADEQUATE) Large Platelets Few Giant Platelets Occ Anisocytosis Slight Macrocytosis Present Sodium Level 139 mmol/L (136-145) Potassium Level 4.0 mmol/L (3.5-5.1) Chloride Level 102 mmol/L (98-107) Carbon Dioxide Level 26 mmol/L (21-32) Anion Gap 11 (6-14) Blood Urea Nitrogen 6 mg/dL (8-26) L Creatinine 0.8 mg/dL (0.7-1.3) Estimated GFR (Cockcroft-Gault) 97.0 BUN/Creatinine Ratio 8 (6-20) Glucose Level 84 mg/dL (70-99) Calcium Level 8.8 mg/dL (8.5-10.1) Total Bilirubin 0.4 mg/dL (0.2-1.0) Aspartate Amino Transferase (AST) 45 U/L (15-37) H Alanine Aminotransferase (ALT) 48 U/L (16-63) Alkaline Phosphatase 94 U/L (46-116) Total Protein 6.6 g/dL (6.4-8.2) Albumin 3.5 g/dL (3.4-5.0) Albumin/Globulin Ratio 1.1 (1.0-1.7) Laboratory Tests 12/26/18 10:10 Laboratory Tests 12/26/18 10:10 EKG EKG [] Radiology/Procedures Radiology/Procedures Left hip: No deformity or obvious fracture per radiology report.] Course & Med Decision Making Course & Med Decision Making Pertinent Labs and Imaging studies reviewed. (See chart for details) [Pain improved with treatment.. Patient able to ambulate with steady gait. Will discharge home with instructions to use walker as needed.] Dragon Disclaimer Dragon Disclaimer This electronic medical record was generated, in whole or in part, using a voice recognition dictation system. Departure Departure Impression: Primary Impression: Contusion of left hip Disposition: HOME, SELF-CARE Condition: GOOD Referrals: MANI ZENG (PCP) Patient Instructions: Contusion, [id number] Additional Instructions: Take ibuprofen for pain and use walker to assist with gait. Apply ice to affected area for 20-30 minutes every 2-3 hours for additional relief. Return the ED if new or worsening symptoms ALEJANDRO PINEDA DO Dec 26, 2018 13:57
== END 2018-12-26 14:04 | disposition home or self-care (01) ==
LOC: ER 09:26
DX: S70.02XA Contusion of left hip, initial encounter (principal); Z96.649 Presence of unspecified artificial hip joint; G89.29 Other chronic pain; F17.200 Nicotine dependence, unspecified, uncomplicated; Z88.2 Allergy status to sulfonamides; Z88.8 Allergy status to other drugs, medicaments and biological substances; W18.39XA Other fall on same level, initial encounter; Y93.89 Activity, other specified; Y92.89 Other specified places as the place of occurrence of the external cause; Y99.8 Other external cause status
CPT/HCPCS: 36415; 73502; 80053; 85007; 85025; 96374; 96375; 99285; J1885; J2405; J3010